=== PATIENT | female | born 1960 | race Caucasian/White ===

== ENCOUNTER 2017-07-02 15:18 | Inpatient (IN) | payer MEDICARE ==
[2017-07-02] MEDS ORDERED: NORMAL SALINE 1000 ML 1,000 ML IV ONE ×3 (16:23→18:47)
[2017-07-02 16:35] LABS: HEMATOCRIT 29.5 % (36.0-47.0); HEMOGLOBIN 8.3 g/dL (12.0-15.5); MEAN CORPUSCULAR HEMOGLOBIN 20.4 pg (27.0-33.4); MEAN CORPUSCULAR HGB CONC 28.1 g/dL (32.0-36.0); MEAN CORPUSCULAR VOLUME 73 fl (80-97); RED BLOOD COUNT 4.07 10^6/uL (3.72-5.28); RED CELL DISTRIBUTION WIDTH 19.7 % (11.5-14.0); WHITE BLOOD COUNT 18.1 10^3/uL (4.0-10.5)
--- NOTE | 2017-07-02 16:37 | ER Document Report ---
ED Blood Sugar Problem - General Mode of Arrival: Wheelchair Information source: Patient, Parent TRAVEL OUTSIDE OF THE [place] IN LAST 30 DAYS: No - HPI Onset: This morning Similar symptoms previously: Yes Recently seen / treated by doctor: No <DEBORAH NORTON - Last Filed: 07/02/17 16:56> <SAÚL KUMAR - Last Filed: 07/02/17 20:00> - General Chief Complaint: High Blood Sugar Stated Complaint: BLOOD SUGAR PROBLEMS Time Seen by Provider: 07/02/17 16:14 Notes: Patient is a 56-year-old female presented emergency department for hyperglycemia , vomiting and abdominal pain. Patient took her blood glucose at 10:00 this morning and her meter read "high." Patient took 12.5 units of her insulin at 10 :00. Patient does wear an insulin pump and has been insulin-dependent since she was 10 years old. Patient states that last night when she went to bed she felt fine and around 3:00 this morning she woke up to use the bathroom and she had some blurry vision, lightheadedness and had difficulty getting to the bathroom. Mother states that the patient called out her to get help this morning. Patient has nausea and vomiting and she also complains of some lower abdominal pain. Patient is on chronic pain management and is taking methadone and Dilaudid for such. Patient is also taking prednisone and Prograf for immunization. Patient had a kidney transplant in 2009 and she also has a history of GERD, hypertension, hyperlipidemia, and anxiety. Patient has had a cholecystectomy, appendectomy, and hysterectomy. Patient usually goes to [facility] to see Dr. Lior Merida, Training Designer. (DEBORAH NORTON) The patient is on chronic pain management with Dilaudid and methadone for chronic abdominal pain. She states they have not been able to figure out why she has the abdominal paiin. After 2 L of IV fluid, 1 dose of Dilaudid and being on insulin drip, she does feel better. At this time (0)there are strong ketones on her breath. Her abdomen is soft, there is some tenderness in the lower abdomen. It is difficult to tell if this pain is worse than what would normally be there and she is a little vague about whether or not it really hurts more than When I palpate her abdomen. (SAÚL KUMAR) - Related Data Allergies/Adverse Reactions: amoxicillin Allergy (Verified 07/02/17 17:16) aspirin Allergy (Verified 07/02/17 15:55) clindamycin Allergy (Verified 07/02/17 17:16) divalproex sodium [From Depakote] Allergy (Verified 07/02/17 17:16) gabapentin [From Neurontin] Allergy (Verified 07/02/17 17:16) ibuprofen Allergy (Verified 07/02/17 17:16) iodine Allergy (Verified 07/02/17 17:16) iron Allergy (Verified 07/02/17 17:16) metoclopramide [From Reglan] Allergy (Verified 07/02/17 17:16) morphine Allergy (Verified 07/02/17 17:16) nalbuphine [From Nubain] Allergy (Verified 07/02/17 17:16) NSAIDS (Non-Steroidal Anti-Inflamma Allergy (Verified 07/02/17 15:55) orange juice Allergy (Verified 07/02/17 17:16) paricalcitol [From Zemplar] Allergy (Verified 07/02/17 17:16) pregabalin [From Lyrica] Allergy (Verified 07/02/17 17:16) Sulfa (Sulfonamide Antibiotics) Allergy (Verified 07/02/17 15:55) topiramate [From Topamax] Allergy (Verified 07/02/17 17:16) IVP dye Allergy (Uncoded 07/02/17 17:16) seafood Allergy (Uncoded 07/02/17 17:16) Home Medications: Current Home Medications Acetaminophen [Tylenol 325 mg Tablet] 325 mg PO Q4HP PRN 07/02/17 [History] Albuterol Sulfate [Proair Respiclick] 90 mcg IH Q4H PRN 07/02/17 [History] Aspirin 81 mg PO DAILY 07/02/17 [History] Cholecalciferol (Vitamin D3) [Vitamin D3] 2,000 unit PO DAILY 07/02/17 [History] Citalopram Hydrobromide [Citalopram HBr] 20 mg PO DAILY 07/02/17 [History] Clonazepam 1 mg PO BID 07/02/17 [History] Clonidine HCl 0.1 mg PO QHS 07/02/17 [History] Cyclobenzaprine HCl 10 mg PO BID 07/02/17 [History] Docusate Sodium [Colace 100 mg Capsule] 100 mg PO DAILY PRN 07/02/17 [History] Duloxetine HCl [Cymbalta] 60 mg PO BID 07/02/17 [History] Ferrous Sulfate 325 mg PO TID 07/02/17 [History] Hydromorphone HCl 2 mg PO QID PRN 07/02/17 [History] Insulin Aspart [Novolog Insulin 100 Unit/1 ml 10 ml] 0 unit SUBCUT .SLD SCALE [History] Levothyroxine Sodium 125 mcg PO QAM 07/02/17 [History] Lidocaine [Lidoderm 5% (700 mg) Transdermal Patch] 1 patch TP DAILY PRN [History] Loperamide HCl [Imodium 2 mg Capsule] 2 mg PO Q6HP PRN 07/02/17 [History] Losartan Potassium [Cozaar 25 mg Tablet] 25 mg PO DAILY 07/02/17 [History] Magnesium Oxide 400 mg PO BID 07/02/17 [History] Methadone HCl 5 mg PO DAILY 07/02/17 [History] Metoprolol Tartrate [Lopressor 25 mg Tablet] 12.5 mg PO QHS 07/02/17 [History] Mycophenolate Sodium [Myfortic 360 Mg Tablet.Dr] 360 mg PO BID 07/02/17 [History ] Pantoprazole Sodium [Protonix] 40 mg PO BID 07/02/17 [History] Polyethylene Glycol 3350 [Glycolax] 17 gm PO DAILY 07/02/17 [History] Prednisone 5 mg PO QAM 07/02/17 [History] Promethazine HCl [Phenergan 25 mg Tablet] 25 mg PO Q6H PRN 07/02/17 [History] Simvastatin 40 mg PO QHS 07/02/17 [History] Tacrolimus Anhydrous [Prograf 1 Mg Capsule] 1 mg PO BID 07/02/17 [History] Past Medical History - General Information source: Patient, Parent - Social History Smoking Status: Never Smoker Cigarette use (# per day): No Chew tobacco use (# tins/day): No Smoking Education Provided: No Frequency of alcohol use: None Drug Abuse: None Family History: None Patient has suicidal ideation: No Patient has homicidal ideation: No - Past Medical History Cardiac Medical History: Reports: Hx Hypercholesterolemia, Hx Hypertension Neurological Medical History: Reports: Hx Cerebrovascular Accident Endocrine Medical History: Reports: Hx Diabetes Mellitus Type 1 Past Surgical History: Reports: Hx Appendectomy, Hx Section, Hx Cholecystectomy, Hx Hysterectomy, Hx Kidney (Renal Surgery) - Kidney transplant , Hx Tubal Ligation <DEBORAH NORTON - Last Filed: 07/02/17 16:56> Physical Exam - Vital signs Interpretation: Hypertensive <DEBORAH NORTON - Last Filed: 07/02/17 16:56> <SAÚL KUMAR - Last Filed: 07/02/17 20:00> - Vital signs Vitals: Temp Pulse Resp BP Pulse Ox 98.4 F 109 H 20 151/68 H 94 07/02/17 15:48 07/02/17 15:48 07/02/17 15:48 07/02/17 15:48 07/02/17 15:48 - Notes Notes: GENERAL: Alert, interacts well. Mild distress. HEAD: Normocephalic, atraumatic. EYES: Appear normal. Pupils equal, round, and reactive to light. ENT: Dry mucus membranes, tongue midline. NECK: Full range of motion. Supple. Trachea midline. LUNGS: Clear to auscultation bilaterally, no wheezes, rales, or rhonchi. No respiratory distress. HEART: Regular rate and rhythm. No murmurs, gallops, or rubs. ABDOMEN: Obese, soft, diffuse tenderness to palpation. Non-distended. Normal bowel sounds. EXTREMITIES: Moves all 4 extremities spontaneously. Normal strength. No edema. NEUROLOGICAL: Alert and oriented x3. Normal speech. No focal neurological deficits. GCS 15. PSYCH: Normal affect, normal mood. SKIN: Warm, dry, normal turgor. No rashes or lesions noted. (DEBORAH NOROTN) Course - Laboratory Result Diagrams: 07/02/17 16:16 07/02/17 16:16 <DEBORAH NORTON - Last Filed: 07/02/17 16:56> - Laboratory Result Diagrams: 07/02/17 16:16 07/02/17 16:16 - EKG Interpretation by Nj EKG shows normal: Sinus rhythm, Weiner, Intervals. abnormal: QRS Complexes - Borderline inferior Q waves, ST-T Waves - Nonspecific inferior repolarization abnormality Rate: Tachycardia - 123 P Waves: LAE When compared to previous EKG there are: No significant change - Compared to an EKG done here in 2010 - Consults Dr. Awan Time consulted: 19:35 Consulted provider: will come to ER - IMCU admission <SAÚL KUMAR - Last Filed: 07/02/17 20:00> - Vital Signs Vital signs: Temp Pulse Resp BP Pulse Ox 98.4 F 109 H 31 H 128/67 H 94 07/02/17 15:48 07/02/17 15:48 07/02/17 16:05 07/02/17 16:24 07/02/17 15:48 - Laboratory Laboratory results interpreted by me: 07/02/17 07/02/17 07/02/17 16:16 16:16 16:16 WBC 18.1 H Hgb 8.3 L Hct 29.5 L MCV 73 L MCH 20.4 L MCHC 28.1 L RDW 19.7 H Seg Neuts % (Manual) 95 H Lymphocytes % (Manual) 1 L Abs Neuts (Manual) 17.2 H Abs Lymphs (Manual) 0.2 L Sodium 131.8 L Potassium 5.5 H Chloride 92 L Carbon Dioxide 18 L Anion Gap 22 H BUN 25 H Est GFR (Non-Af Amer) 57 L Glucose 682 H* POC Glucose Hemoglobin A1c % 9.1 H Direct Bilirubin 0.7 H Urine Glucose (UA) Urine Ketones 07/02/17 07/02/17 07/02/17 17:07 18:07 19:01 WBC Hgb Hct MCV MCH MCHC RDW Seg Neuts % (Manual) Lymphocytes % (Manual) Abs Neuts (Manual) Abs Lymphs (Manual) Sodium Potassium Chloride Carbon Dioxide Anion Gap BUN Est GFR (Non-Af Amer) Glucose POC Glucose 541 H* 455 H* Hemoglobin A1c % Direct Bilirubin Urine Glucose (UA) >=500 H Urine Ketones 20 H Critical Care Note - Critical Care Note Total time excluding time spent on procedures (mins): 35 <SAÚL KUMAR - Last Filed: 07/02/17 20:00> Discharge <DEBORAH NORTON - Last Filed: 07/02/17 16:56> - Discharge Admitting Provider: Hospitalist Unit Admitted: IMCU <SAÚL KUMAR - Last Filed: 07/02/17 20:00> - Discharge Clinical Impression: Chronic bilateral lower abdominal pain, Renal transplant recipient Diabetic ketoacidosis associated with type 1 diabetes mellitus Qualifiers: Diabetes mellitus complication detail: without coma Qualified Code(s): E10.10 - Type 1 diabetes mellitus with ketoacidosis without coma Condition: Stable Disposition: ADMITTED INPATIENT Scribe Attestation: 07/02/17 17:49 I personally performed the services described in the documentation, reviewed and edited the documentation which was dictated to the scribe in my presence, and it accurately records my words and actions. (SAÚL KUMAR) Scribe Documentation - Scribe Written by Matilde:: Matilde Casas, 07/02/2017 1650 acting as scribe for :: Devan <DEBORAH NORTON - Last Filed: 07/02/17 16:56>
[2017-07-02] MEDS ORDERED: INSULIN REG, HUMAN 100 UNIT/ML 3 ML VIAL (PYX) IV ONE (16:46)
[2017-07-02 16:48] LABS: ALANINE AMINOTRANSFERASE 28 U/L (9-52); ALKALINE PHOSPHATASE 105 U/L (38-126); ASPARTATE AMINO TRANSFERASE 18 U/L (14-36); BILIRUBIN,DIRECT 0.7 mg/dL (0.0-0.4); BILIRUBIN,TOTAL 0.8 mg/dL (0.2-1.3); BLOOD UREA NITROGEN 25 mg/dL (7-20); CALCIUM 10.1 mg/dL (8.4-10.2); CHLORIDE 92 mmol/L (98-107); CREATININE RESULT 1.01 mg/dL (0.52-1.25); POTASSIUM 5.5 mmol/L (3.6-5.0); TOTAL PROTEIN 7.1 g/dL (6.3-8.2)
[2017-07-02] MEDS ORDERED: ONDANSETRON HCL INJ/PF 4 MG/2 ML SDV IV ONE (16:48)
[2017-07-02] MEDS ORDERED: HYDROMORPHONE HCL INJ/PF 2 MG/ML AMPULE IV ONE ×2 (16:48→18:48)
[2017-07-02 16:55] LABS: CARBON DIOXIDE 18 mmol/L (22-30); SODIUM 131.8 mmol/L (137-145)
[2017-07-02 16:57] LABS: ANION GAP 22 (5-19)
[2017-07-02 16:58] LABS: GLUCOSE 682 mg/dL (75-110)
[2017-07-02 17:03] LABS: HGB HCT DIFFERENCE -4.6
[2017-07-02 17:04] LABS: BASOPHILS % (MANUAL) 0 % (0-2); EOSINOPHILS % (MANUAL) 0 % (0-6); LYMPHOCYTES % (MANUAL) 1 % (13-45); TOTAL CELLS COUNTED 100
[2017-07-02 17:10] LABS: ANISOCYTOSIS 2+; HYPOCHROMASIA 2+; MICROCYTOSIS 2+; OVALOCYTES SLIGHT; POIKILOCYTOSIS SLIGHT; POLYCHROMASIA SLIGHT; ROULEAUX SLIGHT
[2017-07-02 17:20] LABS: APPEARANCE,URINE CLEAR; BILIRUBIN,URINE NEGATIVE (NEGATIVE); GLUCOSE, URINE >=500 mg/dL (NEGATIVE); KETONES,URINE 20 mg/dL (NEGATIVE); LEUKOCYTE ESTERASE,URINE NEGATIVE (NEGATIVE); NITRITE,URINE NEGATIVE (NEGATIVE); PROTEIN,URINE NEGATIVE (NEGATIVE); URINE SPECIFIC GRAVITY 1.017; UROBILINOGEN,URINE NEGATIVE mg/dL (<2.0)
[2017-07-02 18:51] LABS: ADD ON TESTING BLD IN LAB ACKNOWLEDGE
[2017-07-02 19:14] LABS: MAGNESIUM 1.8 mg/dL (1.6-2.3)
[2017-07-02] MEDS ORDERED: LIDOCAINE 5% (700 MG) TRANSDERMAL ADH..PATCH TP PRN (19:42)
[2017-07-02] MEDS ORDERED: HYDROMORPHONE HCL 2 MG TABLET PO PRN (19:42)
[2017-07-02] MEDS ORDERED: DEXTROSE 50%-WATER 25 GM/50 ML DISP.SYRIN IV PRN ×2 (19:44)
[2017-07-02] MEDS ORDERED: GLUCAGON,HUMAN RECOMB 1 MG INJ IM PRN (19:44)
[2017-07-02] MEDS ORDERED: NORMAL SALINE 100 ML with INSULIN REGULAR, HUMAN 100 UNIT IV PRN ×2 (19:44)
[2017-07-02] MEDS ORDERED: DEXTROSE 40% GEL 15 GM TUBE PO PRN ×2 (19:44)
[2017-07-02] MEDS ORDERED: ALBUTEROL SULFATE HFA (90 MCG/PUFF) 200 PUFF/8.5 GM MDI IH PRN (20:30)
[2017-07-02] MEDS: POTASSI CL 20 MEQ/D5-1/2NS 1L 1,000 ML IV PRN (20:30)
[2017-07-02 20:55] LABS: ANION GAP 15 (5-19); BLOOD UREA NITROGEN 20 mg/dL (7-20); CALCIUM 8.4 mg/dL (8.4-10.2); CARBON DIOXIDE 18 mmol/L (22-30); CHLORIDE 106 mmol/L (98-107); GLUCOSE 289 mg/dL (75-110); SODIUM 138.7 mmol/L (137-145)
[2017-07-02 21:06] LABS: POTASSIUM 4.2 mmol/L (3.6-5.0)
[2017-07-02] MEDS ORDERED: IPRATROPIUM/ALBUTEROL 0.5-2.5 MG/3 ML AMPUL NEB PRN (21:10)
--- NOTE | 2017-07-02 21:14 | EKG REPORT ---
SEVERITY:- ABNORMAL ECG - SINUS TACHYCARDIA ANASTASIA, CONSIDER BIATRIAL ABNORMALITIES BORDERLINE INFERIOR Q WAVES NONSPECIFIC REPOL ABNORMALITY CONSIDER ISCHEMIA, INFERIOR AND LATERAL CHEST LEADS : Confirmed by: Cody Childs 02-Jul-2017 21:14:26
[2017-07-02] MEDS ORDERED: METOPROLOL TARTRATE 25 MG TABLET PO SCH (22:00)
[2017-07-02] MEDS ORDERED: CLONIDINE HCL 0.1 MG TABLET PO SCH (22:00)
[2017-07-02] MEDS: SIMVASTATIN 40 MG TABLET PO SCH (22:32)
[2017-07-02] MEDS: HEPARIN SOD (PORCINE) 5,000 UNIT/ML 1 ML SYRINGE SUBCUT SCH (22:55)
[2017-07-03 00:57] LABS: ANION GAP 11 (5-19); BLOOD UREA NITROGEN 19 mg/dL (7-20); CALCIUM 9.1 mg/dL (8.4-10.2); CARBON DIOXIDE 23 mmol/L (22-30); CHLORIDE 106 mmol/L (98-107); CREATININE RESULT 0.82 mg/dL (0.52-1.25); GLUCOSE 228 mg/dL (75-110); POTASSIUM 4.8 mmol/L (3.6-5.0); SODIUM 140.2 mmol/L (137-145)
[2017-07-03] MEDS: POTASSI CL 20 MEQ/D5-1/2NS 1L 1,000 ML IV PRN (01:34)
[2017-07-03] MEDS ORDERED: NORMAL SALINE 1000 ML 1,000 ML IV ONE (03:25)
[2017-07-03] MEDS: PROMETHAZINE HCL 25 MG TABLET PO PRN (04:33)
[2017-07-03] MEDS: HEPARIN SOD (PORCINE) 5,000 UNIT/ML 1 ML SYRINGE SUBCUT SCH ×3 (05:18→22:52)
[2017-07-03 05:42] LABS: ANION GAP 8 (5-19); BLOOD UREA NITROGEN 17 mg/dL (7-20); CALCIUM 8.9 mg/dL (8.4-10.2); CARBON DIOXIDE 25 mmol/L (22-30); CHLORIDE 107 mmol/L (98-107); CREATININE RESULT 0.77 mg/dL (0.52-1.25); GLUCOSE 115 mg/dL (75-110); POTASSIUM 4.6 mmol/L (3.6-5.0); SODIUM 139.8 mmol/L (137-145)
[2017-07-03] MEDS: METOPROLOL TARTRATE 25 MG TABLET PO SCH (05:46)
--- NOTE | 2017-07-03 06:25 | PDOC H&P ---
History of Present Illness Admission Date/PCP: 07/02/17 19:53 Patient complains of: Hyperglycemia, nausea and vomiting History of Present Illness: KE SMITH is a 56 year old female with a past medical history of insulin- dependent diabetes, status post renal transplant 2009, chronic abdominal pain methadone and Dilaudid dependent, depression and anxiety. She been her usual state of health until approximately 12 hours prior to presentation having abdominal pain, nausea and glucometer reading high prompts her evaluation emergency room where she is found to be in DKA. She denies focal symptoms, chest pain, palpitations dysuria or constipation. She is unaware of any insulin pump dysfunction or dietary indiscretion. Past Medical History Cardiac Medical History: Reports: Hyperlipidema, Hypertension Endocrine Medical History: Reports: Diabetes Mellitus Type 1, Diabetes Mellitus Type 2 Psychiatric Medical History: Reports: Depression, General Anxiety Disorder Hematology: Reports: Anemia Past Surgical History Past Surgical History: Reports: Appendectomy, Section, Cholecystectomy , Hysterectomy, Renal Transplant, Tubal Ligation Social History Information Source: Patient Smoking Status: Never Smoker - Advance Directive Resuscitation Status: Full Code Family History Family History: Hypertension Parental Family History Reviewed: Yes Children Family History Reviewed: Yes Sibling(s) Family History Reviewed.: Yes Medication/Allergy Home Medications: Acetaminophen [Tylenol 325 mg Tablet] 325 mg PO Q4HP PRN 07/02/17 Albuterol Sulfate [Proair Respiclick] 90 mcg IH Q4H PRN 07/02/17 Aspirin 81 mg PO DAILY 07/02/17 Cholecalciferol (Vitamin D3) [Vitamin D3] 2,000 unit PO DAILY 07/02/17 Citalopram Hydrobromide [Citalopram HBr] 20 mg PO DAILY 07/02/17 Clonazepam 1 mg PO BID 07/02/17 Clonidine HCl 0.1 mg PO QHS 07/02/17 Cyclobenzaprine HCl 10 mg PO BID 07/02/17 Docusate Sodium [Colace 100 mg Capsule] 100 mg PO DAILY PRN 07/02/17 Duloxetine HCl [Cymbalta] 60 mg PO BID 07/02/17 Ferrous Sulfate 325 mg PO TID 07/02/17 Hydromorphone HCl 2 mg PO QID PRN 07/02/17 Insulin Aspart [Novolog Insulin 100 Unit/1 ml 10 ml] 0 unit SUBCUT .SLD SCALE Levothyroxine Sodium 125 mcg PO QAM 07/02/17 Lidocaine [Lidoderm 5% (700 mg) Transdermal Patch] 1 patch TP DAILY PRN Loperamide HCl [Imodium 2 mg Capsule] 2 mg PO Q6HP PRN 07/02/17 Losartan Potassium [Cozaar 25 mg Tablet] 25 mg PO DAILY 07/02/17 Magnesium Oxide 400 mg PO BID 07/02/17 Methadone HCl 5 mg PO DAILY 07/02/17 Metoprolol Tartrate [Lopressor 25 mg Tablet] 12.5 mg PO QHS 07/02/17 Mycophenolate Sodium [Myfortic 360 Mg Tablet.Dr] 360 mg PO BID 07/02/17 Pantoprazole Sodium [Protonix] 40 mg PO BID 07/02/17 Polyethylene Glycol 3350 [Glycolax] 17 gm PO DAILY 07/02/17 Prednisone 5 mg PO QAM 07/02/17 Promethazine HCl [Phenergan 25 mg Tablet] 25 mg PO Q6H PRN 07/02/17 Simvastatin 40 mg PO QHS 07/02/17 Tacrolimus Anhydrous [Prograf 1 Mg Capsule] 1 mg PO BID 07/02/17 Allergies/Adverse Reactions: amoxicillin Allergy (Verified 07/02/17 17:16) aspirin Allergy (Verified 07/02/17 15:55) clindamycin Allergy (Verified 07/02/17 17:16) divalproex sodium [From Depakote] Allergy (Verified 07/02/17 17:16) gabapentin [From Neurontin] Allergy (Verified 07/02/17 17:16) ibuprofen Allergy (Verified 07/02/17 17:16) iodine Allergy (Verified 07/02/17 17:16) iron Allergy (Verified 07/02/17 17:16) metoclopramide [From Reglan] Allergy (Verified 07/02/17 17:16) morphine Allergy (Verified 07/02/17 17:16) nalbuphine [From Nubain] Allergy (Verified 07/02/17 17:16) NSAIDS (Non-Steroidal Anti-Inflamma Allergy (Verified 07/02/17 15:55) orange juice Allergy (Verified 07/02/17 17:16) paricalcitol [From Zemplar] Allergy (Verified 07/02/17 17:16) pregabalin [From Lyrica] Allergy (Verified 07/02/17 17:16) Sulfa (Sulfonamide Antibiotics) Allergy (Verified 07/02/17 15:55) topiramate [From Topamax] Allergy (Verified 07/02/17 17:16) IVP dye Allergy (Uncoded 07/02/17 17:16) seafood Allergy (Uncoded 07/02/17 17:16) Review of Systems Constitutional: PRESENT: as per HPI, fatigue, weakness Eyes: ABSENT: visual disturbances Ears: ABSENT: hearing changes Cardiovascular: ABSENT: chest pain, dyspnea on exertion, edema, orthropnea, palpitations Respiratory: ABSENT: cough, hemoptysis Gastrointestinal: ABSENT: abdominal pain, constipation, diarrhea, hematemesis, hematochezia, nausea, vomiting Genitourinary: ABSENT: dysuria, hematuria Musculoskeletal: ABSENT: joint swelling Integumentary: ABSENT: rash, wounds Neurological: ABSENT: abnormal gait, abnormal speech, confusion, dizziness, focal weakness, syncope Psychiatric: ABSENT: anxiety, depression, homidical ideation, suicidal ideation Endocrine: ABSENT: cold intolerance, heat intolerance, polydipsia, polyuria Hematologic/Lymphatic: ABSENT: easy bleeding, easy bruising Physical Exam Vital Signs: Temp Pulse Resp BP Pulse Ox 98.3 F 110 H 20 123/66 99 07/03/17 03:15 07/03/17 03:15 07/03/17 03:15 07/03/17 03:15 07/03/17 03:15 Intake & Output 07/01/17 07/02/17 07/03/17 11:59 11:59 11:59 Output Total 0 Balance 0 Weight 77.2 kg General appearance: PRESENT: cooperative, disheveled, mild distress, obese Head exam: PRESENT: atraumatic, normocephalic Eye exam: PRESENT: conjunctiva pink, EOMI, PERRLA. ABSENT: scleral icterus Ear exam: PRESENT: normal external ear exam Mouth exam: PRESENT: dry mucosa, tongue midline Neck exam: ABSENT: carotid bruit, JVD, lymphadenopathy, thyromegaly Respiratory exam: PRESENT: accessory muscle use, symmetrical, tachypnea. ABSENT : crackles, rales, retraction Cardiovascular exam: PRESENT: RRR, tachycardia. ABSENT: diastolic murmur, rubs , systolic murmur Pulses: PRESENT: normal dorsalis pedis pul Vascular exam: PRESENT: normal capillary refill GI/Abdominal exam: PRESENT: diminished bowel sounds, hypoactive bowel sounds, soft, tenderness. ABSENT: distended, firm, guarding, mass, organolmegaly, rebound, rigid Rectal exam: PRESENT: deferred Extremities exam: PRESENT: full ROM. ABSENT: calf tenderness, clubbing, pedal edema Neurological exam: PRESENT: alert, awake, oriented to person, oriented to place , oriented to time, oriented to situation, CN II-XII grossly intact. ABSENT: motor sensory deficit Psychiatric exam: PRESENT: appropriate affect, normal mood. ABSENT: homicidal ideation, suicidal ideation Skin exam: PRESENT: dry, intact, warm. ABSENT: cyanosis, rash Results Laboratory Results: 07/03/17 04:50 07/03/17 04:50 07/02/17 07/03/17 07/03/17 20:05 00:25 04:50 WBC RBC Hgb Hct MCV MCH MCHC RDW Plt Count Seg Neutrophils % Lymphocytes % Monocytes % Eosinophils % Basophils % Absolute Neutrophils Absolute Lymphocytes Absolute Monocytes Absolute Eosinophils Absolute Basophils Sodium 138.7 140.2 139.8 Potassium 4.2 D 4.8 4.6 Chloride 106 106 107 Carbon Dioxide 18 L 23 25 Anion Gap 15 11 8 BUN 20 19 17 Creatinine 0.80 0.82 0.77 Est GFR ( Amer) > 60 > 60 > 60 Est GFR (Non-Af Amer) > 60 > 60 > 60 Glucose 289 H 228 H 115 H Calcium 8.4 9.1 8.9 07/03/17 04:50 WBC Cancelled RBC Cancelled Hgb Cancelled Hct Cancelled MCV Cancelled MCH Cancelled MCHC Cancelled RDW Cancelled Plt Count Cancelled Seg Neutrophils % Cancelled Lymphocytes % Cancelled Monocytes % Cancelled Eosinophils % Cancelled Basophils % Cancelled Absolute Neutrophils Cancelled Absolute Lymphocytes Cancelled Absolute Monocytes Cancelled Absolute Eosinophils Cancelled Absolute Basophils Cancelled Sodium Potassium Chloride Carbon Dioxide Anion Gap BUN Creatinine Est GFR ( Amer) Est GFR (Non-Af Amer) Glucose Calcium Assessment & Plan - Diagnosis (1) Diabetic ketoacidosis associated with type 1 diabetes mellitus Qualifiers: Diabetes mellitus complication detail: without coma Qualified Code(s): E10.10 - Type 1 diabetes mellitus with ketoacidosis without coma Is this a current diagnosis for this admission?: Yes Plan: Diabetic ketoacidosis patient has had some degree of polyuria polydipsia with nausea and uncontrolled hyperglycemia with supporting labs. Patient will receive IV fluids IV insulin serial chemistries every 6 hours for evaluation for electrolyte repletion. Continued evaluation for underlying cause if not found Patient will require diabetic education and consideration of mental health evaluation. (2) Hyperkalemia Is this a current diagnosis for this admission?: Yes Plan: Secondary to DKA, reevaluate chemistry every 6 hours (3) Chronic bilateral lower abdominal pain Is this a current diagnosis for this admission?: Yes Plan: Consider abdominal series given high risk fecal impaction given narcotic use. (4) Renal transplant recipient Is this a current diagnosis for this admission?: Yes Plan: Continue outpatient regiment (5) Anemia Is this a current diagnosis for this admission?: Yes Plan: Likely secondary to epogen deficiency, follow-up anemia workup and CBC - Time Time Spent: 50 to 70 Minutes - Inpatient Certification Medical Necessity: Need Close Monitoring Due to Risk of Patient Decompensation
[2017-07-03 06:31] LABS: HEMATOCRIT 24.3 % (36.0-47.0); HGB HCT DIFFERENCE -2.4; MEAN CORPUSCULAR HEMOGLOBIN 20.4 pg (27.0-33.4); RED BLOOD COUNT 3.57 10^6/uL (3.72-5.28); RED CELL DISTRIBUTION WIDTH 20.2 % (11.5-14.0); WHITE BLOOD COUNT 21.1 10^3/uL (4.0-10.5)
[2017-07-03 07:01] LABS: MEAN CORPUSCULAR VOLUME 68 fl (80-97)
[2017-07-03 07:02] LABS: HEMOGLOBIN 7.3 g/dL (12.0-15.5)
[2017-07-03 07:06] LABS: BAND NEUTROPHILS % (MANUAL) 1 % (3-5); BASOPHILS % (MANUAL) 0 % (0-2); EOSINOPHILS % (MANUAL) 0 % (0-6); LYMPHOCYTES % (MANUAL) 4 % (13-45); TOTAL CELLS COUNTED 100
[2017-07-03 07:09] LABS: TOXIC GRANULATION SLIGHT
[2017-07-03 07:10] LABS: ANISOCYTOSIS 2+; HYPOCHROMASIA 1+; MICROCYTOSIS 2+; OVALOCYTES SLIGHT; PLATELET CLUMPS PRESENT; POIKILOCYTOSIS SLIGHT; POLYCHROMASIA SLIGHT; TARGET CELLS SLIGHT; TEAR DROP CELLS SLIGHT; TOXIC VACUOLATION PRESENT
[2017-07-03 07:19] LABS: FERRITIN 7.11 ng/mL (11.1-264.0)
[2017-07-03] MEDS: PREDNISONE 5 MG TABLET PO SCH (07:46)
[2017-07-03 07:51] LABS: FOLATE > 20.00 ng/mL (>2.76)
--- NOTE | 2017-07-03 08:00 | RADIOLOGY REPORT (SQ) ---
EXAM DESCRIPTION: ABDOMEN 2 VIEWS COMPLETED DATE/TIME: 07/03/2017 7:46 am REASON FOR STUDY: Pain. Mid abdominal pain . Nausea, vomiting, diarrhea. COMPARISON: Abdominal series 05/31/2016. NUMBER OF VIEWS: Two views. TECHNIQUE: Supine and erect/decubitus radiographic images of the abdomen acquired. LIMITATIONS: None. FINDINGS: FREE AIR: None. LUNG BASES: Clear. BOWEL GAS PATTERN: Small amount of gas in the stomach and ascending colon. Otherwise, there is pauci ty of bowel gas. CALCIFICATIONS: No suspicious calcifications. SOFT TISSUES: No gross mass or suggestion of organomegaly. HARDWARE: Surgical clips in the right upper quadrant and right lower quadrant. BONES: There is thoracolumbar scoliosis. IMPRESSION: Small amount of gas in the stomach and the ascending colon. Otherwise, there is paucity of bowel gas. TECHNICAL DOCUMENTATION: JOB ID: [id number] [employer]- All Rights Reserved
[2017-07-03] MEDS: HYDROMORPHONE HCL 2 MG TABLET PO PRN ×2 (08:47→22:53)
[2017-07-03 08:51] LABS: ANION GAP 14 (5-19); BLOOD UREA NITROGEN 15 mg/dL (7-20); CARBON DIOXIDE 18 mmol/L (22-30); CHLORIDE 105 mmol/L (98-107); CREATININE RESULT 0.79 mg/dL (0.52-1.25); GLUCOSE 316 mg/dL (75-110); POTASSIUM 5.3 mmol/L (3.6-5.0); SODIUM 136.8 mmol/L (137-145)
[2017-07-03] MEDS: METHADONE HCL 10 MG TABLET PO SCH (09:22)
[2017-07-03] MEDS: CLONAZEPAM 1 MG TABLET PO SCH ×2 (09:23→17:37)
[2017-07-03] MEDS: CITALOPRAM HYDROBROMIDE 20 MG TABLET PO SCH (09:24)
[2017-07-03] MEDS: MAGNESIUM OXIDE 400 MG TABLET PO SCH ×2 (09:25→17:37)
[2017-07-03] MEDS: CHOLECALCIFEROL (D3) 1,000 UNIT TABLET PO SCH (09:26)
[2017-07-03] MEDS: DOCUSATE SODIUM 100 MG CAPSULE PO PRN (09:38)
[2017-07-03] MEDS ORDERED: LANSOPRAZOLE 30 MG TAB.RAP.DR PO SCH (10:00)
[2017-07-03] MEDS ORDERED: POLYETHYLENE GLYCOL 3350 POWDER 17 GM/1 PACKET PO SCH (10:00)
[2017-07-03] MEDS ORDERED: ASPIRIN 81 MG TABLET, CHEWABLE PO SCH (10:00)
[2017-07-03] MEDS ORDERED: LOSARTAN POTASSIUM 25 MG TABLET PO SCH (10:00)
[2017-07-03] MEDS ORDERED: (PENDING PHARMACY ID) (Mycophenolate Sodium 360 MG) PO SCH (10:00)
--- NOTE | 2017-07-03 10:13 | Physician Advisory Note ---
Physician Advisor ProgressNote .: Pursuant to the plan for [facility], I have reviewed the medical record for this patient. Physician Advisor Statement: Please consider documentin. "SIRS due to DKA, present on adm" 2. "anemia of CKD & nutritional [vs chr blood loss from ___] Fe defic" Status: approp Inpt. 56yo Medicare pt already in hospital x 1 night for DKA of unclear etiology needing w/u, w/associated SIRS & electrolyte abnormalities & distress, with, after 1 night of hospital level intensive tx, still worse leukocytosis, persistent tachycardia, recurrent acidosis & hyperkalemia. Clearly not able to be safely d/c'd after 1 MN. CK
[2017-07-03] MEDS: TACROLIMUS ANHYDROUS 1 MG CAPSULE PO SCH ×2 (10:33→17:38)
[2017-07-03] MEDS ORDERED: INSULIN LISPRO 100 UNIT/ML 3 ML VIAL ONE (12:18)
[2017-07-03] MEDS ORDERED: DEXTROSE 50%-WATER SYRINGE 25 GM/50 ML DOSE IV PRN (12:25)
[2017-07-03] MEDS ORDERED: DEXTROSE 50%-WATER SYRINGE 12.5 GM/25 ML DOSE IV PRN (12:25)
[2017-07-03] MEDS ORDERED: DEXTROSE 40% GEL 15 GM TUBE PO PRN ×4 (12:25→22:07)
[2017-07-03] MEDS ORDERED: DEXTROSE 40% GEL 15 GM TUBE X 2 PO PRN (12:25)
[2017-07-03] MEDS ORDERED: GLUCAGON,HUMAN RECOMB 1 MG INJ IM PRN ×3 (12:25→22:07)
[2017-07-03] MEDS ORDERED: INSULIN LISPRO 100 UNIT/ML 3 ML VIAL SUBCUT PRN (12:25)
[2017-07-03 12:47] LABS: ANION GAP 17 (5-19); BLOOD UREA NITROGEN 15 mg/dL (7-20); CALCIUM 9.3 mg/dL (8.4-10.2); CARBON DIOXIDE 16 mmol/L (22-30); CHLORIDE 103 mmol/L (98-107); CREATININE RESULT 0.86 mg/dL (0.52-1.25); POTASSIUM 5.8 mmol/L (3.6-5.0); SODIUM 136.3 mmol/L (137-145)
[2017-07-03 13:00] LABS: GLUCOSE 489 mg/dL (75-110)
[2017-07-03] MEDS ORDERED: IPRATROPIUM/ALBUTEROL 0.5-2.5 MG/3 ML AMPUL NEB PRN (13:00)
[2017-07-03] MEDS ORDERED: INSULIN LISPRO 100 UNIT/ML 3 ML VIAL SUBCUT ONE (13:30)
[2017-07-03] MEDS ORDERED: NORMAL SALINE 250 ML IV PRN (14:02)
[2017-07-03 15:17] LABS: ANION GAP 17 (5-19); BLOOD UREA NITROGEN 15 mg/dL (7-20); CALCIUM 9.3 mg/dL (8.4-10.2); CARBON DIOXIDE 15 mmol/L (22-30); CHLORIDE 105 mmol/L (98-107); CREATININE RESULT 0.87 mg/dL (0.52-1.25); GLUCOSE 321 mg/dL (75-110); SODIUM 136.7 mmol/L (137-145)
[2017-07-03] MEDS ORDERED: BISACODYL 10 MG SUPP.RECT PR PRN (15:20)
[2017-07-03 15:27] LABS: POTASSIUM 4.8 mmol/L (3.6-5.0)
--- NOTE | 2017-07-03 15:41 | PDOC PROGRESS REPORT ---
Subjective Progress Note for:: 07/03/17 Subjective:: The patient is a 56-year-old female with insulin-dependent diabetes. She presented to the hospital in DKA. She was admitted this morning. Initially, the insulin drip was discontinued as the patient closed her gap, however, she now has a persistent anion gap with hyperglycemia and she will be placed back on insulin drip per DKA protocol. The patient is severely anemic. Her anemia appears to be secondary to iron deficiency. GI has been consulted. The etiology of the patient's DKA is unknown. Cultures are outstanding. The patient does not give any history relating to infection but we need to be vigilant. The patient has an insulin pump at home and relates no noncompliance. 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 Physical Exam Vital Signs: Temp Pulse Resp BP Pulse Ox 100.1 F 105 H 18 118/74 98 07/03/17 11:53 07/03/17 14:00 07/03/17 11:53 07/03/17 11:53 07/03/17 11:53 Intake & Output 07/02/17 07/03/17 07/04/17 06:59 06:59 06:59 Intake Total 2324 Output Total 0 Balance 2324 Weight 77.2 kg Additional comments: The patient appears older than her stated age. She does not appear to be in good health but she appears nontoxic and in no distress. Her cognition and mentation appear to be normal, however, the nurses have reported that intermittently she appears confused. The patient's facial appearance shows a mcclellan facies. She appears to be cushingoid. She has a slight humpback. The patient's oropharynx is benign with fair dentition. Neck is supple. Lungs are clear bilaterally both anteriorly and posteriorly. Cardiac exam is regular without murmurs, gallops or rubs. The abdomen is diffusely tender but soft. Bowel sounds are noted in all 4 quadrants. There is no guarding or rebound noted and there is no hepatosplenomegaly. The lower extremities are thin and warm. There is no pitting edema present. The skin is warm dry and intact without lesions or rashes. Results Laboratory Results: 07/03/17 06:14 07/03/17 14:20 07/02/17 07/03/17 07/03/17 20:05 00:25 04:50 WBC RBC Hgb Hct MCV MCH MCHC RDW Plt Count Seg Neutrophils % Lymphocytes % Monocytes % Eosinophils % Basophils % Absolute Neutrophils Absolute Lymphocytes Absolute Monocytes Absolute Eosinophils Absolute Basophils Retic Count (auto) Absolute Retic Sodium 138.7 140.2 139.8 Potassium 4.2 D 4.8 4.6 Chloride 106 106 107 Carbon Dioxide 18 L 23 25 Anion Gap 15 11 8 BUN 20 19 17 Creatinine 0.80 0.82 0.77 Est GFR ( Amer) > 60 > 60 > 60 Est GFR (Non-Af Amer) > 60 > 60 > 60 Glucose 289 H 228 H 115 H Calcium 8.4 9.1 8.9 Iron TIBC % Saturation Ferritin Vitamin B12 Folate Stool Occult Blood Blood Type Antibody Screen 07/03/17 07/03/17 07/03/17 04:50 06:14 06:14 WBC Cancelled 21.1 H RBC Cancelled 3.57 L Hgb Cancelled 7.3 L Hct Cancelled 24.3 L MCV Cancelled 68 L D MCH Cancelled 20.4 L MCHC Cancelled 30.0 L RDW Cancelled 20.2 H Plt Count Cancelled 248 Seg Neutrophils % Cancelled Not Reportable Lymphocytes % Cancelled Not Reportable Monocytes % Cancelled Not Reportable Eosinophils % Cancelled Not Reportable Basophils % Cancelled Not Reportable Absolute Neutrophils Cancelled Not Reportable Absolute Lymphocytes Cancelled Not Reportable Absolute Monocytes Cancelled Not Reportable Absolute Eosinophils Cancelled Not Reportable Absolute Basophils Cancelled Not Reportable Retic Count (auto) 1.92 Absolute Retic 0.069 Sodium Potassium Chloride Carbon Dioxide Anion Gap BUN Creatinine Est GFR ( Amer) Est GFR (Non-Af Amer) Glucose Calcium Iron Cancelled TIBC Cancelled % Saturation Cancelled Ferritin 7.11 L Vitamin B12 772.0 Folate > 20.00 Stool Occult Blood Blood Type Antibody Screen 07/03/17 07/03/17 07/03/17 08:26 08:26 08:35 WBC RBC Hgb Hct MCV MCH MCHC RDW Plt Count Seg Neutrophils % Lymphocytes % Monocytes % Eosinophils % Basophils % Absolute Neutrophils Absolute Lymphocytes Absolute Monocytes Absolute Eosinophils Absolute Basophils Retic Count (auto) Absolute Retic Sodium 136.8 L Potassium 5.3 H Chloride 105 Carbon Dioxide 18 L Anion Gap 14 BUN 15 Creatinine 0.79 Est GFR ( Amer) > 60 Est GFR (Non-Af Amer) > 60 Glucose 316 H Calcium 9.0 Iron 18.1 L TIBC 344 % Saturation 5 Ferritin Vitamin B12 Folate Stool Occult Blood NEGATIVE Blood Type Antibody Screen 07/03/17 07/03/17 07/03/17 12:18 14:20 14:20 WBC RBC Hgb Hct MCV MCH MCHC RDW Plt Count Seg Neutrophils % Lymphocytes % Monocytes % Eosinophils % Basophils % Absolute Neutrophils Absolute Lymphocytes Absolute Monocytes Absolute Eosinophils Absolute Basophils Retic Count (auto) Absolute Retic Sodium 136.3 L 136.7 L Potassium 5.8 H 4.8 D Chloride 103 105 Carbon Dioxide 16 L 15 L Anion Gap 17 17 BUN 15 15 Creatinine 0.86 0.87 Est GFR ( Amer) > 60 > 60 Est GFR (Non-Af Amer) > 60 > 60 Glucose 489 H* 321 H Calcium 9.3 9.3 Iron TIBC % Saturation Ferritin Vitamin B12 Folate Stool Occult Blood Blood Type A POSITIVE Antibody Screen NEGATIVE Impressions: Abdomen X-Ray 07/03/17 06:25 IMPRESSION: Small amount of gas in the stomach and the ascending colon. Otherwise, there is paucity of bowel gas. Assessment & Plan - Diagnosis (1) sirs due to dka, present on admission Is this a current diagnosis for this admission?: Yes Plan: The patient has gone back into DKA. She will be placed on IV insulin via drip. We can discontinue this once her anion gap closes again. We will continue to look for the source of the DKA. I will order a chest x-ray. Urine culture was also added to blood cultures. Physical exam is nonlocalizing. I have not empirically started antibiotics. (2) Anemia Is this a current diagnosis for this admission?: Yes Plan: Patient has severe anemia. This is likely acute on chronic. She does have at least a component of iron deficiency anemia. She will need workup from GI. GI has been consulted. Patient told me that she recently had upper endoscopy and that it was not "" normal but no intervention was necessary. I asked her she had a colonoscopy but she was unaware of having had a prior colonoscopy. Rectal exam showed minimal stool which appeared to be brown. Patient will be transfused 2 units packed red blood cells today for hemoglobin of 7. (3) Chronic bilateral lower abdominal pain Is this a current diagnosis for this admission?: Yes Plan: I suspect that this is due to chronic constipation from narcotics. I informed the patient that we should put her on a regimen to wean her off narcotics. She seemed to be receptive. (4) Diabetic ketoacidosis associated with type 1 diabetes mellitus Qualifiers: Diabetes mellitus complication detail: without coma Qualified Code(s): E10.10 - Type 1 diabetes mellitus with ketoacidosis without coma Is this a current diagnosis for this admission?: Yes Plan: The patient will be placed back on IV insulin by drip. (5) Hyperkalemia Is this a current diagnosis for this admission?: Yes Plan: For the time being I will hold the patient's angiotensin receptor blockers. The hyperkalemia is likely related to the DKA and should improve once the acidosis improves. (6) Renal transplant recipient Is this a current diagnosis for this admission?: Yes Plan: At the present time the patient does not appear to have any acute renal injury. We will continue her medications for the renal transplant. 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 - Time Time Spent with patient: 25-34 minutes - This is additional to H&P done earlier today. - Inpatient Certification Medical Necessity: Need Close Monitoring Due to Risk of Patient Decompensation, Need For IV Fluids, Risk of Complication if Not Cared For in Hospital - The patient is obviously not stable for discharge from the hospital. She has a persistent metabolic acidosis from DKA. She has severe anemia with hemoglobin of 7. She has multiple electrolyte abnormalities to include hypokalemia.
[2017-07-03] MEDS ORDERED: DEXTROSE 50%-WATER 25 GM/50 ML DISP.SYRIN IV PRN ×4 (15:48→22:07)
[2017-07-03] MEDS ORDERED: NORMAL SALINE 100 ML with INSULIN REGULAR, HUMAN 100 UNIT IV PRN ×2 (15:48)
[2017-07-03] MEDS ORDERED: NORMAL SALINE 1000 ML 1,000 ML IV PRN (15:56)
[2017-07-03] MEDS ORDERED: DEXTROSE 5%-1/2 NORMAL SALINE 1,000 ML IV PRN (16:55)
[2017-07-03] MEDS: LANSOPRAZOLE 30 MG TAB.RAP.DR PO SCH (16:57)
[2017-07-03] MEDS ORDERED: INFLUENZA ADLT QUAD (36MOS+) 2017-18 VAC 0.5 ML SYR IM PRN (17:28)
[2017-07-03 19:49] LABS: ANION GAP 9 (5-19); BLOOD UREA NITROGEN 13 mg/dL (7-20); CARBON DIOXIDE 23 mmol/L (22-30); CHLORIDE 104 mmol/L (98-107); CREATININE RESULT 0.85 mg/dL (0.52-1.25); GLUCOSE 169 mg/dL (75-110); POTASSIUM 4.8 mmol/L (3.6-5.0); SODIUM 136.2 mmol/L (137-145)
[2017-07-03] MEDS: ACETAMINOPHEN 325 MG TABLET PO PRN (21:19)
[2017-07-03] MEDS ORDERED: HUM INSULIN NPH/REG INSULIN HM 100 UNIT/1 ML 3 ML SUBCUT SCH (22:15)
[2017-07-03] MEDS: CLONIDINE HCL 0.1 MG TABLET PO SCH (22:54)
[2017-07-03] MEDS: SIMVASTATIN 40 MG TABLET PO SCH (22:55)
[2017-07-03] MEDS ORDERED: HUM INSULIN NPH/REG INSULIN HM 100 UNIT/1 ML 3 ML SUBCUT ONE (23:10)
[2017-07-03 23:20] LABS: ANION GAP 11 (5-19); BLOOD UREA NITROGEN 13 mg/dL (7-20); CALCIUM 9.3 mg/dL (8.4-10.2); CARBON DIOXIDE 18 mmol/L (22-30); CHLORIDE 104 mmol/L (98-107); CREATININE RESULT 0.82 mg/dL (0.52-1.25); GLUCOSE 260 mg/dL (75-110); POTASSIUM 4.9 mmol/L (3.6-5.0); SODIUM 133.4 mmol/L (137-145)
[2017-07-04] MEDS: INSULIN LISPRO 100 UNIT/ML 3 ML VIAL SUBCUT PRN ×3 (01:02→16:13)
[2017-07-04] MEDS: PROMETHAZINE HCL 25 MG TABLET PO PRN (01:26)
[2017-07-04 01:35] LABS: ABSOLUTE BASOPHILS # (AUTO) 0.1 10^3/uL (0.0-0.2); ABSOLUTE LYMPHOCYTES (AUTO) 1.3 10^3/uL (0.5-4.7); ABSOLUTE MONOCYTES (AUTO) 1.3 10^3/uL (0.1-1.4); BASOPHILS % (AUTO) 0.4 % (0-2); HEMATOCRIT 33.8 % (36.0-47.0); HGB HCT DIFFERENCE -1.7; LYMPHOCYTES % (AUTO) 7.2 % (13-45); MEAN CORPUSCULAR HEMOGLOBIN 23.3 pg (27.0-33.4); MEAN CORPUSCULAR HGB CONC 31.7 g/dL (32.0-36.0); MONOCYTES % (AUTO) 7.6 % (3-13); RED CELL DISTRIBUTION WIDTH 24.3 % (11.5-14.0); SEGMENTED NEUTROPHILS % (AUTO) 84.8 % (42-78); WHITE BLOOD COUNT 17.6 10^3/uL (4.0-10.5)
[2017-07-04 01:36] LABS: HEMOGLOBIN 10.7 g/dL (12.0-15.5)
[2017-07-04 01:37] LABS: MEAN CORPUSCULAR VOLUME 74 fl (80-97)
[2017-07-04 01:43] LABS: ANION GAP 14 (5-19); BLOOD UREA NITROGEN 14 mg/dL (7-20); CALCIUM 9.1 mg/dL (8.4-10.2); CARBON DIOXIDE 17 mmol/L (22-30); CHLORIDE 106 mmol/L (98-107); CREATININE RESULT 0.87 mg/dL (0.52-1.25); GLUCOSE 275 mg/dL (75-110); POTASSIUM 4.7 mmol/L (3.6-5.0); SODIUM 137.1 mmol/L (137-145)
[2017-07-04 01:44] LABS: ANISOCYTOSIS 3+; BURR CELLS SLIGHT; HYPOCHROMASIA 1+; MICROCYTOSIS 1+; OVALOCYTES 1+; PLATELET CLUMPS PRESENT; POIKILOCYTOSIS 1+; POLYCHROMASIA SLIGHT; TARGET CELLS SLIGHT; TEAR DROP CELLS SLIGHT
[2017-07-04] MEDS: HEPARIN SOD (PORCINE) 5,000 UNIT/ML 1 ML SYRINGE SUBCUT SCH ×3 (05:52→21:10)
[2017-07-04] MEDS: LANSOPRAZOLE 30 MG TAB.RAP.DR PO SCH (07:33)
[2017-07-04] MEDS: PREDNISONE 5 MG TABLET PO SCH (07:33)
--- NOTE | 2017-07-04 08:41 | RADIOLOGY REPORT (SQ) ---
EXAM DESCRIPTION: CHEST SINGLE VIEW COMPLETED DATE/TIME: 07/04/2017 6:53 am REASON FOR STUDY: infection COMPARISON: 05/31/2016, 03/06/2011 chest films EXAM PARAMETERS: NUMBER OF VIEWS: One view. TECHNIQUE: Single frontal radiographic view of the chest acquired. RADIATION DOSE: NA LIMITATIONS: None. FINDINGS: LUNGS AND PLEURA: Right basilar airspace disease is present with air bronchograms and blun ting of the right lateral costophrenic sulcus. Question early or developing pneumonia. Left lung grossly clear. No pleural effusions. MEDIASTINUM AND HILAR STRUCTURES: No masses. Contour normal. HEART AND VASCULAR STRUCTURES: Heart normal in size. Normal vasculature. BONES: Convex rightward mid and lower thoracic curvature HARDWARE: None in the chest. OTHER: No other significant finding. IMPRESSION: Patchy airspace disease in the right lower lobe, atelectasis versus pneumonia TECHNICAL DOCUMENTATION: JOB ID: [id number]
[2017-07-04] MEDS: MAGNESIUM OXIDE 400 MG TABLET PO SCH ×2 (09:39→20:28)
[2017-07-04] MEDS: CLONAZEPAM 1 MG TABLET PO SCH ×2 (09:40→20:36)
[2017-07-04] MEDS: CITALOPRAM HYDROBROMIDE 20 MG TABLET PO SCH (09:40)
[2017-07-04] MEDS: CHOLECALCIFEROL (D3) 1,000 UNIT TABLET PO SCH (09:40)
[2017-07-04] MEDS: ASPIRIN 81 MG TABLET, CHEWABLE PO SCH (09:40)
[2017-07-04] MEDS: POLYETHYLENE GLYCOL 3350 POWDER 17 GM/1 PACKET PO SCH ×2 (09:41→20:29)
[2017-07-04] MEDS: METHADONE HCL 10 MG TABLET PO SCH (09:45)
[2017-07-04] MEDS: DOCUSATE SODIUM 100 MG CAPSULE PO PRN (09:48)
[2017-07-04] MEDS: TACROLIMUS ANHYDROUS 1 MG CAPSULE PO SCH ×2 (09:48→20:29)
[2017-07-04] MEDS ORDERED: LOSARTAN POTASSIUM 25 MG TABLET PO SCH (10:00)
[2017-07-04 10:12] LABS: APPEARANCE,URINE CLEAR; BILIRUBIN,URINE NEGATIVE (NEGATIVE); GLUCOSE, URINE 150 mg/dL (NEGATIVE); KETONES,URINE 20 mg/dL (NEGATIVE); LEUKOCYTE ESTERASE,URINE TRACE (NEGATIVE); NITRITE,URINE NEGATIVE (NEGATIVE); PROTEIN,URINE 30 mg/dL (NEGATIVE); URINE SPECIFIC GRAVITY 1.016; UROBILINOGEN,URINE NEGATIVE mg/dL (<2.0)
--- NOTE | 2017-07-04 10:19 | PDOC PROGRESS REPORT ---
Subjective Progress Note for:: 07/04/17 Subjective:: Patient states that she is feeling better today. Nurse reports the patient is scheduled for EGD. Patient reports that her stool has been hard for the last several days. Nursing reports that patient is constipated. Nursing also reports that patient has had vomiting episodes during this admission. Nursing also reports that patient has coarse breath sounds heard on right side. Physical Exam Vital Signs: Temp Pulse Resp BP Pulse Ox 98.8 F 113 H 18 146/71 H 96 07/04/17 07:30 07/04/17 07:30 07/04/17 07:30 07/04/17 07:30 07/04/17 07:30 Intake & Output 07/03/17 07/04/17 07/05/17 06:59 06:59 06:59 Intake Total 2324 2678 Output Total 0 1300 Balance 2324 1378 Weight 77.2 kg 79 kg General appearance: PRESENT: no acute distress, well-developed, well-nourished Head exam: PRESENT: atraumatic, normocephalic Eye exam: PRESENT: conjunctiva pink, EOMI, PERRLA. ABSENT: scleral icterus Ear exam: PRESENT: normal external ear exam Mouth exam: PRESENT: moist, tongue midline Neck exam: ABSENT: carotid bruit, JVD, lymphadenopathy, thyromegaly Respiratory exam: PRESENT: other - Right side with crackles heard left side with good breath sounds heard clear no wheezing or accessory muscles used Cardiovascular exam: PRESENT: RRR. ABSENT: diastolic murmur, rubs, systolic murmur Pulses: PRESENT: normal dorsalis pedis pul Vascular exam: PRESENT: normal capillary refill GI/Abdominal exam: PRESENT: normal bowel sounds, soft. ABSENT: distended, guarding, mass, organolmegaly, rebound, tenderness Rectal exam: PRESENT: deferred Extremities exam: PRESENT: full ROM. ABSENT: calf tenderness, clubbing, pedal edema Neurological exam: PRESENT: alert, awake, oriented to person, oriented to place , oriented to time, oriented to situation, CN II-XII grossly intact. ABSENT: motor sensory deficit Psychiatric exam: PRESENT: depressed, flat affect. ABSENT: agitated, anxious, appropriate affect, homicidal ideation, manic, normal mood, suicidal ideation, unusual affect, other Skin exam: PRESENT: dry, intact, warm. ABSENT: cyanosis, rash Results Laboratory Results: 07/04/17 01:02 07/04/17 01:02 07/03/17 07/03/17 07/03/17 12:18 14:20 14:20 WBC RBC Hgb Hct MCV MCH MCHC RDW Plt Count Seg Neutrophils % Lymphocytes % Monocytes % Eosinophils % Basophils % Absolute Neutrophils Absolute Lymphocytes Absolute Monocytes Absolute Eosinophils Absolute Basophils Sodium 136.3 L 136.7 L Potassium 5.8 H 4.8 D Chloride 103 105 Carbon Dioxide 16 L 15 L Anion Gap 17 17 BUN 15 15 Creatinine 0.86 0.87 Est GFR ( Amer) > 60 > 60 Est GFR (Non-Af Amer) > 60 > 60 Glucose 489 H* 321 H Calcium 9.3 9.3 Blood Type A POSITIVE Antibody Screen NEGATIVE 07/03/17 07/03/17 07/04/17 19:17 22:48 01:02 WBC RBC Hgb Hct MCV MCH MCHC RDW Plt Count Seg Neutrophils % Lymphocytes % Monocytes % Eosinophils % Basophils % Absolute Neutrophils Absolute Lymphocytes Absolute Monocytes Absolute Eosinophils Absolute Basophils Sodium 136.2 L 133.4 L 137.1 Potassium 4.8 4.9 4.7 Chloride 104 104 106 Carbon Dioxide 23 18 L 17 L Anion Gap 9 11 14 BUN 13 13 14 Creatinine 0.85 0.82 0.87 Est GFR ( Amer) > 60 > 60 > 60 Est GFR (Non-Af Amer) > 60 > 60 > 60 Glucose 169 H 260 H 275 H Calcium 9.0 9.3 9.1 Blood Type Antibody Screen 07/04/17 01:02 WBC 17.6 H RBC 4.60 Hgb 10.7 L D Hct 33.8 L MCV 74 L D MCH 23.3 L MCHC 31.7 L RDW 24.3 H Plt Count 268 Seg Neutrophils % 84.8 H Lymphocytes % 7.2 L Monocytes % 7.6 Eosinophils % 0.0 Basophils % 0.4 Absolute Neutrophils 15.0 H Absolute Lymphocytes 1.3 Absolute Monocytes 1.3 Absolute Eosinophils 0.0 Absolute Basophils 0.1 Sodium Potassium Chloride Carbon Dioxide Anion Gap BUN Creatinine Est GFR ( Amer) Est GFR (Non-Af Amer) Glucose Calcium Blood Type Antibody Screen Impressions: Abdomen X-Ray 07/03/17 06:25 IMPRESSION: Small amount of gas in the stomach and the ascending colon. Otherwise, there is paucity of bowel gas. Chest X-Ray 07/04/17 07:00 IMPRESSION: Patchy airspace disease in the right lower lobe, atelectasis versus pneumonia Assessment & Plan - Diagnosis (1) Aspiration pneumonia Qualifiers: Aspiration pneumonia type: due to vomit Laterality: right Lung location: lower lobe of lung Qualified Code(s): J69.0 - Pneumonitis due to inhalation of food and vomit Is this a current diagnosis for this admission?: Yes Plan: Suspect gram-negative organism: patient noted to have elevated white count with temperature of 100.6. Will place on Rocephin and Flagyl. Of note patient has multiple drug allergies (2) Diabetic ketoacidosis associated with type 1 diabetes mellitus Qualifiers: Diabetes mellitus complication detail: without coma Qualified Code(s): E10.10 - Type 1 diabetes mellitus with ketoacidosis without coma Is this a current diagnosis for this admission?: Yes Plan: Will continue current treatment. Will check UA. (3) SIRS (systemic inflammatory response syndrome) Is this a current diagnosis for this admission?: Yes Plan: Will continue to monitor. (4) Renal transplant recipient Is this a current diagnosis for this admission?: Yes Plan: Will continue current medications. (5) Constipation Is this a current diagnosis for this admission?: Yes Plan: Will give Soap Suds Enema. Will place on scheduled Colace. (6) Emesis Is this a current diagnosis for this admission?: Yes Plan: Pt scheduled for EGD today. (7) Anemia Is this a current diagnosis for this admission?: Yes Plan: S/P 2 units of PRBCs. Pt scheduled for EGD. (8) Chronic bilateral lower abdominal pain Is this a current diagnosis for this admission?: Yes Plan: Pt will have EGD today. (9) DVT prophylaxis Is this a current diagnosis for this admission?: Yes Plan: Heparin - Time Time Spent with patient: 25-34 minutes Medications reviewed and adjusted accordingly: Yes Anticipated discharge: Home - Inpatient Certification Medical Necessity: Risk of Diagnosis Which Will Require Inpatient Eval/Care/ Monitoring
[2017-07-04] MEDS: DOCUSATE SODIUM 100 MG CAPSULE PO SCH ×2 (10:50→20:29)
[2017-07-04] MEDS: GLYCERIN (PEDIATRIC) SUPP.RECT PR SCH (11:10)
[2017-07-04] MEDS ORDERED: LEVOTHYROXINE SODIUM 0.025 MG TABLET PO ONE (12:00)
[2017-07-04] MEDS ORDERED: DULOXETINE HCL 30 MG CAPSULE.DR PO ONE (12:00)
[2017-07-04] MEDS ORDERED: LEVOTHYROXINE SODIUM 0.1 MG TABLET PO ONE (12:00)
[2017-07-04] MEDS: CEFTRIAXONE 2 GM/D5W RTU 2 GM/50 ML RTUPB IV SCH (12:23)
[2017-07-04] MEDS: HUM INSULIN NPH/REG INSULIN HM 100 UNIT/1 ML 3 ML SUBCUT SCH (13:07)
[2017-07-04] MEDS ORDERED: HUM INSULIN NPH/REG INSULIN HM 100 UNIT/1 ML 3 ML SUBCUT ONE (13:10)
[2017-07-04] MEDS ORDERED: NALOXONE HCL INJ/PF 0.4 MG/1 ML SDV ONE (15:48)
[2017-07-04] MEDS ORDERED: FLUMAZENIL INJ 0.5 MG/5 ML VIAL ONE (15:49)
[2017-07-04] MEDS ORDERED: EPINEPHRINE INJ 1 MG/10 ML DISP.SYRIN ONE (15:49)
[2017-07-04] MEDS ORDERED: GLUCAGON,HUMAN RECOMB 1 MG INJ ONE (15:49)
[2017-07-04] MEDS: MIDAZOLAM 2 MG/2 ML INJ ONE ×2 (17:58→18:04)
[2017-07-04] MEDS: FENTANYL CITRATE INJ/PF 100 MCG/2 ML AMPUL ONE ×2 (18:00→18:08)
--- NOTE | 2017-07-04 18:10 | PDOC CONSULTATION ---
Consultation Consult Date: 07/03/17 History of Present Illness Admission Date/PCP: 07/02/17 19:53 History of Present Illness: This is a 56-year-old lady who was admitted on 07/02/2017 with nausea, vomiting, and DKA. Consultation was requested for severe anemia. On admission her hemoglobin was 8.3 about 12 hours later it was 7.3. She has received 2 units of blood and her hemoglobin is 10.7. She has a history of anemia and review of her blood work showed a hemoglobin of 10.9 in November 2013 and about the same number in May 2016. She has microcytosis with a ferritin of 7, serum iron of 18 and percentage saturation of 5. She denies melena but has seen bright red blood occasionally after wiping. Her bowels are moving regularly prior to this admission. She also denied abdominal pain. She has never had an EGD or colonoscopy. Her chest x-ray performed today suggests a right lower lobe pneumonia Past Medical History Cardiac Medical History: Reports: Hyperlipidema, Hypertension Neurological Medical History: Denies: Seizures Endocrine Medical History: Reports: Diabetes Mellitus Type 1, Diabetes Mellitus Type 2 Psychiatric Medical History: Reports: Depression, General Anxiety Disorder Hematology: Reports: Anemia Past Surgical History Past Surgical History: Reports: Appendectomy, Section, Cholecystectomy , Hysterectomy, Renal Transplant, Tubal Ligation Social History Smoking Status: Never Smoker - Advance Directive Resuscitation Status: Full Code Family History Family History: Hypertension Parental Family History Reviewed: No Children Family History Reviewed: NA Sibling(s) Family History Reviewed.: NA Medication/Allergy Home Medications: Aspirin 81 mg PO DAILY 07/02/17 Cholecalciferol (Vitamin D3) [Vitamin D3] 2,000 unit PO DAILY 07/02/17 Clonazepam 1 mg PO Q12 07/02/17 Clonidine HCl 0.1 mg PO QHS 07/02/17 Cyclobenzaprine HCl 10 mg PO BIDP PRN 07/02/17 Duloxetine HCl [Cymbalta] 60 mg PO Q12 07/02/17 Ferrous Sulfate 325 mg PO MEALS 07/02/17 Hydromorphone HCl 2 mg PO Q6HP PRN 07/02/17 Insulin Aspart [Novolog Insulin 100 Unit/1 ml 10 ml] 0 unit SUBCUT .SLD SCALE Levothyroxine Sodium 125 mcg PO QAM 07/02/17 Losartan Potassium [Cozaar 25 mg Tablet] 25 mg PO DAILY 07/02/17 Magnesium Oxide 400 mg PO BID 07/02/17 Methadone HCl 5 mg PO DAILY 07/02/17 Metoprolol Tartrate [Lopressor 25 mg Tablet] 12.5 mg PO QHS 07/02/17 Pantoprazole Sodium [Protonix] 40 mg PO BID 07/02/17 Prednisone 5 mg PO QAM 07/02/17 Simvastatin 40 mg PO QHS 07/02/17 Allergies/Adverse Reactions: amoxicillin Allergy (Verified 07/04/17 11:06) aspirin Allergy (Verified 07/02/17 15:55) clindamycin Allergy (Verified 07/02/17 17:16) divalproex sodium [From Depakote] Allergy (Verified 07/02/17 17:16) gabapentin [From Neurontin] Allergy (Verified 07/02/17 17:16) ibuprofen Allergy (Verified 07/02/17 17:16) iodine Allergy (Verified 07/02/17 17:16) iron Allergy (Verified 07/02/17 17:16) metoclopramide [From Reglan] Allergy (Verified 07/02/17 17:16) morphine Allergy (Verified 07/02/17 17:16) nalbuphine [From Nubain] Allergy (Verified 07/02/17 17:16) NSAIDS (Non-Steroidal Anti-Inflamma Allergy (Verified 07/02/17 15:55) orange juice Allergy (Verified 07/02/17 17:16) paricalcitol [From Zemplar] Allergy (Verified 07/02/17 17:16) pregabalin [From Lyrica] Allergy (Verified 07/02/17 17:16) Sulfa (Sulfonamide Antibiotics) Allergy (Verified 07/02/17 15:55) topiramate [From Topamax] Allergy (Verified 07/02/17 17:16) IVP dye Allergy (Uncoded 07/02/17 17:16) seafood Allergy (Uncoded 07/02/17 17:16) Review of Systems All systems: reviewed and no additional remarkable complaints except as stated Physical Exam Vital Signs: Temp Pulse Resp BP Pulse Ox 98.1 F 110 H 22 H 129/61 H 96 07/04/17 17:40 07/04/17 17:55 07/04/17 17:55 07/04/17 17:55 07/04/17 17:55 Intake & Output 07/03/17 07/04/17 07/05/17 06:59 06:59 06:59 Intake Total 2324 2678 237 Output Total 0 1300 1650 Balance 2324 1378 -1413 Weight 77.2 kg 79 kg Exam: General: Patient is alert and looks well. HEENT: There is pallor but no jaundice. She is obese. PERRLA. Oropharynx normal Respiratory: No chest deformity. No respiratory distress. Chest wall palpitation was unremarkable. Breath sounds were normal Cardiovascular: Heart sounds 1 and 2 normal with no murmurs. Abdominal: Not distended. Soft and nontender. Liver and spleen not palpable. No ascites demonstrated. Bowel sounds active. Rectal examination was deferred. Extremities: No edema Neurological: Alert and oriented x4. Grossly nonfocal. She is sleepy though she has been using Dilaudid [id number] Skin: No significant rash Psychological: Normal affect Results Laboratory Results: 07/04/17 01:02 07/04/17 01:02 07/03/17 07/03/17 07/03/17 14:20 19:17 22:48 WBC RBC Hgb Hct MCV MCH MCHC RDW Plt Count Seg Neutrophils % Lymphocytes % Monocytes % Eosinophils % Basophils % Absolute Neutrophils Absolute Lymphocytes Absolute Monocytes Absolute Eosinophils Absolute Basophils Sodium 136.2 L 133.4 L Potassium 4.8 4.9 Chloride 104 104 Carbon Dioxide 23 18 L Anion Gap 9 11 BUN 13 13 Creatinine 0.85 0.82 Est GFR ( Amer) > 60 > 60 Est GFR (Non-Af Amer) > 60 > 60 Glucose 169 H 260 H Calcium 9.0 9.3 Urine Color Urine Appearance Urine pH Ur Specific Purvis Urine Protein Urine Glucose (UA) Urine Ketones Urine Blood Urine Nitrite Ur Leukocyte Esterase Urine WBC (Auto) Urine RBC (Auto) Blood Type A POSITIVE Antibody Screen NEGATIVE 07/04/17 07/04/17 07/04/17 01:02 01:02 09:35 WBC 17.6 H RBC 4.60 Hgb 10.7 L D Hct 33.8 L MCV 74 L D MCH 23.3 L MCHC 31.7 L RDW 24.3 H Plt Count 268 Seg Neutrophils % 84.8 H Lymphocytes % 7.2 L Monocytes % 7.6 Eosinophils % 0.0 Basophils % 0.4 Absolute Neutrophils 15.0 H Absolute Lymphocytes 1.3 Absolute Monocytes 1.3 Absolute Eosinophils 0.0 Absolute Basophils 0.1 Sodium 137.1 Potassium 4.7 Chloride 106 Carbon Dioxide 17 L Anion Gap 14 BUN 14 Creatinine 0.87 Est GFR ( Amer) > 60 Est GFR (Non-Af Amer) > 60 Glucose 275 H Calcium 9.1 Urine Color YELLOW Urine Appearance CLEAR Urine pH 5.0 Ur Specific Purvis 1.016 Urine Protein 30 H Urine Glucose (UA) 150 H Urine Ketones 20 H Urine Blood SMALL H Urine Nitrite NEGATIVE Ur Leukocyte Esterase TRACE H Urine WBC (Auto) 9 Urine RBC (Auto) 0 Blood Type Antibody Screen Impressions: Abdomen X-Ray 07/03/17 06:25 IMPRESSION: Small amount of gas in the stomach and the ascending colon. Otherwise, there is paucity of bowel gas. Chest X-Ray 07/04/17 07:00 IMPRESSION: Patchy airspace disease in the right lower lobe, atelectasis versus pneumonia Assessment & Plan - Diagnosis (1) Iron deficiency anemia Is this a current diagnosis for this admission?: Yes Plan: The etiology for her iron deficiency anemia is unclear. She does require an EGD which will be performed now, and a colonoscopy which we could perform as outpatient. She currently has DKA and a pneumonia. She may also need a capsule endoscopy of the small bowel if her colonoscopy is unremarkable (2) Rectal bleeding Plan: This may be hemorrhoids but neoplasm will be ruled out (3) Diabetic ketoacidosis associated with type 1 diabetes mellitus Qualifiers: Diabetes mellitus complication detail: without coma Qualified Code(s): E10.10 - Type 1 diabetes mellitus with ketoacidosis without coma Is this a current diagnosis for this admission?: Yes
--- NOTE | 2017-07-04 18:11 | Operative Report ---
Operative Report DATE OF SURGERY: 07/04/17 Operative Report: Pre-op diagnosis: Iron deficiency anemia Post-op diagnosis: Normal Surgery: Esophagogastroduodenoscopy Medications: Versed 2mg Fentanyl 75mcg IV push Tissue removed: None Procedure: After informed consent obtained from patient, the throat was sprayed with Hurricane and conscious sedation was achieved. The upper endoscope was inserted into the esophagus under direct vision and advanced into the stomach. The duodenum was entered and examined to the second part. Endoscope was then slowly pulled out of the patient as the mucosa was examined into details. Patient tolerated procedure well. Findings Esophagus: Normal Z-line at: 38 cm Antrum: Normal Body: Normal Fundus: Normal Duodenum first part: Normal Duodenum second part: Normal Plan: Continue management OPERATION: .
[2017-07-04] MEDS: DULOXETINE HCL 30 MG CAPSULE.DR PO SCH (21:10)
[2017-07-04] MEDS: CLONIDINE HCL 0.1 MG TABLET PO SCH (21:13)
[2017-07-04] MEDS: METOPROLOL TARTRATE 25 MG TABLET PO SCH (21:13)
[2017-07-04] MEDS: SIMVASTATIN 40 MG TABLET PO SCH (21:13)
[2017-07-04] MEDS: METRONIDAZOLE 500 MG TABLET PO SCH (21:13)
[2017-07-04] MEDS ORDERED: HUM INSULIN NPH/REG INSULIN HM 100 UNIT/1 ML 3 ML SUBCUT SCH (22:45)
[2017-07-05 04:52] LABS: HEMATOCRIT 31.9 % (36.0-47.0); HEMOGLOBIN 10.2 g/dL (12.0-15.5); HGB HCT DIFFERENCE -1.3; MEAN CORPUSCULAR HEMOGLOBIN 23.2 pg (27.0-33.4); MEAN CORPUSCULAR VOLUME 73 fl (80-97); RED CELL DISTRIBUTION WIDTH 24.1 % (11.5-14.0)
[2017-07-05 05:05] LABS: ANION GAP 7 (5-19); BLOOD UREA NITROGEN 12 mg/dL (7-20); CALCIUM 9.3 mg/dL (8.4-10.2); CARBON DIOXIDE 26 mmol/L (22-30); CHLORIDE 104 mmol/L (98-107); CREATININE RESULT 0.77 mg/dL (0.52-1.25); GLUCOSE 225 mg/dL (75-110); POTASSIUM 4.6 mmol/L (3.6-5.0); SODIUM 137.1 mmol/L (137-145)
[2017-07-05] MEDS: METRONIDAZOLE 500 MG TABLET PO SCH ×3 (05:42→22:30)
[2017-07-05] MEDS: HEPARIN SOD (PORCINE) 5,000 UNIT/ML 1 ML SYRINGE SUBCUT SCH ×3 (05:46→22:32)
[2017-07-05] MEDS ORDERED: (PENDING PHARMACY ID) (Levothyroxine Sodium [Levothyroxine Sodium] 125 MCG) PO SCH (08:00)
[2017-07-05] MEDS: HUM INSULIN NPH/REG INSULIN HM 100 UNIT/1 ML 3 ML SUBCUT SCH ×2 (08:07→17:30)
[2017-07-05] MEDS: LEVOTHYROXINE SODIUM 0.1 MG TABLET PO SCH (08:10)
[2017-07-05] MEDS: PREDNISONE 5 MG TABLET PO SCH (08:10)
[2017-07-05] MEDS: LEVOTHYROXINE SODIUM 0.025 MG TABLET PO SCH (08:10)
[2017-07-05] MEDS: INSULIN LISPRO 100 UNIT/ML 3 ML VIAL SUBCUT PRN ×3 (08:12→17:34)
[2017-07-05] MEDS: CLONAZEPAM 1 MG TABLET PO SCH ×2 (09:58→17:35)
[2017-07-05] MEDS: TACROLIMUS ANHYDROUS 1 MG CAPSULE PO SCH ×2 (09:58→17:36)
[2017-07-05] MEDS: CITALOPRAM HYDROBROMIDE 20 MG TABLET PO SCH (09:58)
[2017-07-05] MEDS: DOCUSATE SODIUM 100 MG CAPSULE PO SCH ×2 (09:59→17:35)
[2017-07-05] MEDS: METHADONE HCL 10 MG TABLET PO SCH (09:59)
[2017-07-05] MEDS: ASPIRIN 81 MG TABLET, CHEWABLE PO SCH (09:59)
[2017-07-05] MEDS: MAGNESIUM OXIDE 400 MG TABLET PO SCH ×2 (10:01→17:35)
[2017-07-05] MEDS: LANSOPRAZOLE 30 MG TAB.RAP.DR PO SCH (10:02)
[2017-07-05] MEDS: DULOXETINE HCL 30 MG CAPSULE.DR PO SCH ×2 (10:02→22:29)
[2017-07-05] MEDS: CHOLECALCIFEROL (D3) 1,000 UNIT TABLET PO SCH (10:02)
[2017-07-05] MEDS: GLYCERIN (PEDIATRIC) SUPP.RECT PR SCH (10:03)
[2017-07-05] MEDS: POLYETHYLENE GLYCOL 3350 POWDER 17 GM/1 PACKET PO SCH ×2 (10:03→17:35)
[2017-07-05] MEDS: CEFTRIAXONE 2 GM/D5W RTU 2 GM/50 ML RTUPB IV SCH (11:32)
--- NOTE | 2017-07-05 16:16 | PDOC PROGRESS REPORT ---
Subjective Progress Note for:: 07/05/17 Subjective:: No new issues this morning. She was trying to get patient to take medication however patient was refusing. Nurse was finally able to get patient to take medication. Physical Exam Vital Signs: Temp Pulse Resp BP Pulse Ox 98.3 F 103 H 18 139/87 H 90 L 07/05/17 04:41 07/05/17 07:00 07/05/17 04:41 07/05/17 04:41 07/05/17 04:41 Intake & Output 07/04/17 07/05/17 07/06/17 06:59 06:59 06:59 Intake Total 2678 804 Output Total 1300 1650 Balance 1378 -846 Weight 79 kg 77.8 kg General appearance: PRESENT: mild distress, well-developed, well-nourished Head exam: PRESENT: atraumatic, normocephalic Eye exam: PRESENT: conjunctiva pink, EOMI. ABSENT: scleral icterus Ear exam: PRESENT: normal external ear exam Mouth exam: PRESENT: moist, tongue midline Neck exam: ABSENT: carotid bruit, JVD, lymphadenopathy, thyromegaly Respiratory exam: PRESENT: clear to auscultation grayson. ABSENT: rales, rhonchi, wheezes Cardiovascular exam: PRESENT: RRR. ABSENT: diastolic murmur, rubs, systolic murmur Pulses: PRESENT: normal dorsalis pedis pul Vascular exam: PRESENT: normal capillary refill GI/Abdominal exam: PRESENT: normal bowel sounds, soft. ABSENT: distended, guarding, mass, organolmegaly, rebound, tenderness Rectal exam: PRESENT: deferred Extremities exam: PRESENT: full ROM. ABSENT: calf tenderness, clubbing, pedal edema Neurological exam: PRESENT: alert, awake, oriented to person Psychiatric exam: PRESENT: agitated, flat affect Skin exam: PRESENT: dry, intact, warm. ABSENT: cyanosis, rash Results Laboratory Results: 07/05/17 04:24 07/05/17 04:24 07/05/17 07/05/17 04:24 04:24 WBC 10.0 RBC 4.40 Hgb 10.2 L Hct 31.9 L MCV 73 L MCH 23.2 L MCHC 32.0 RDW 24.1 H Plt Count 248 Sodium 137.1 Potassium 4.6 Chloride 104 Carbon Dioxide 26 Anion Gap 7 BUN 12 Creatinine 0.77 Est GFR ( Amer) > 60 Est GFR (Non-Af Amer) > 60 Glucose 225 H Calcium 9.3 Impressions: Abdomen X-Ray 07/03/17 06:25 IMPRESSION: Small amount of gas in the stomach and the ascending colon. Otherwise, there is paucity of bowel gas. Chest X-Ray 07/04/17 07:00 IMPRESSION: Patchy airspace disease in the right lower lobe, atelectasis versus pneumonia Assessment & Plan - Diagnosis (1) Aspiration pneumonia Qualifiers: Aspiration pneumonia type: due to vomit Laterality: right Lung location: lower lobe of lung Qualified Code(s): J69.0 - Pneumonitis due to inhalation of food and vomit Is this a current diagnosis for this admission?: Yes Plan: Suspect gram-negative organism Right Lower Lobe: Rocephin and Flagyl. (2) Diabetic ketoacidosis associated with type 1 diabetes mellitus Qualifiers: Diabetes mellitus complication detail: without coma Qualified Code(s): E10.10 - Type 1 diabetes mellitus with ketoacidosis without coma Is this a current diagnosis for this admission?: Yes Plan: Will continue current treatment. Will check UA in am. Pt refuses medication. (3) SIRS (systemic inflammatory response syndrome) Is this a current diagnosis for this admission?: Yes Plan: Will continue to monitor. (4) Renal transplant recipient Is this a current diagnosis for this admission?: Yes Plan: Will continue current medications. (5) Constipation Is this a current diagnosis for this admission?: Yes Plan: resolved (6) Emesis Is this a current diagnosis for this admission?: Yes Plan: EGD normal. (7) Anemia Is this a current diagnosis for this admission?: Yes Plan: S/P 2 units of PRBCs. (8) Chronic bilateral lower abdominal pain Is this a current diagnosis for this admission?: Yes Plan: EGD normal (9) DVT prophylaxis Is this a current diagnosis for this admission?: Yes Plan: Heparin - Time Time Spent with patient: 25-34 minutes
[2017-07-05 21:16] LABS: ABSOLUTE BASOPHILS # (AUTO) 0.1 10^3/uL (0.0-0.2); ABSOLUTE LYMPHOCYTES (AUTO) 1.3 10^3/uL (0.5-4.7); ABSOLUTE NEUT (AUTO) 6.2 10^3/uL (1.7-8.2); BASOPHILS % (AUTO) 0.8 % (0-2); EOSINOPHILS % (AUTO) 0.5 % (0-6); HEMATOCRIT 31.5 % (36.0-47.0); HEMOGLOBIN 10.3 g/dL (12.0-15.5); HGB HCT DIFFERENCE -0.6; LYMPHOCYTES % (AUTO) 15.3 % (13-45); MEAN CORPUSCULAR HEMOGLOBIN 23.5 pg (27.0-33.4); MEAN CORPUSCULAR HGB CONC 32.7 g/dL (32.0-36.0); MEAN CORPUSCULAR VOLUME 72 fl (80-97); MONOCYTES % (AUTO) 11.6 % (3-13); RED BLOOD COUNT 4.39 10^6/uL (3.72-5.28); RED CELL DISTRIBUTION WIDTH 24.5 % (11.5-14.0); SEGMENTED NEUTROPHILS % (AUTO) 71.8 % (42-78); WHITE BLOOD COUNT 8.6 10^3/uL (4.0-10.5)
[2017-07-05 21:33] LABS: ANISOCYTOSIS 3+; HYPOCHROMASIA SLIGHT; MICROCYTOSIS 1+; OVALOCYTES SLIGHT; POIKILOCYTOSIS 2+; TARGET CELLS SLIGHT; TOXIC GRANULATION SLIGHT
--- NOTE | 2017-07-05 22:17 | PDOC CONSULTATION ---
Consultation Consult Date: 07/05/17 Consult reason:: Rectal bleed History of Present Illness Admission Date/PCP: 07/02/17 19:53 History of Present Illness: 56-year-old female type I diabetic admitted for hyperglycemia with nausea and vomiting on 07/03/2017. She had a initial EGD by Dr. Hand which was done on 07/04/2017 and noted to be essentially normal. Tonight the nurses noted that patient did complain of some abdominal pains followed by bloody diarrhea. However no stool for Hemoccult specimen was taken. At any rate a stat CBC was done and the hemoglobin was 10.2 this morning and this about a half an hour ago. Now noted to be 10.3. We are awaiting the coagulation results. Past Medical History Cardiac Medical History: Reports: Hyperlipidema, Hypertension Neurological Medical History: Denies: Seizures Endocrine Medical History: Reports: Diabetes Mellitus Type 1, Diabetes Mellitus Type 2 Psychiatric Medical History: Reports: Depression, General Anxiety Disorder Hematology: Reports: Anemia Past Surgical History Past Surgical History: Reports: Appendectomy, Section, Cholecystectomy , Hysterectomy, Renal Transplant, Tubal Ligation Social History Smoking Status: Never Smoker - Advance Directive Resuscitation Status: Full Code Family History Family History: Hypertension Parental Family History Reviewed: Yes Children Family History Reviewed: Yes Sibling(s) Family History Reviewed.: Yes Medication/Allergy Home Medications: Aspirin 81 mg PO DAILY 07/02/17 Cholecalciferol (Vitamin D3) [Vitamin D3] 2,000 unit PO DAILY 07/02/17 Clonazepam 1 mg PO Q12 07/02/17 Clonidine HCl 0.1 mg PO QHS 07/02/17 Cyclobenzaprine HCl 10 mg PO BIDP PRN 07/02/17 Duloxetine HCl [Cymbalta] 60 mg PO Q12 07/02/17 Ferrous Sulfate 325 mg PO MEALS 07/02/17 Hydromorphone HCl 2 mg PO Q6HP PRN 07/02/17 Insulin Aspart [Novolog Insulin 100 Unit/1 ml 10 ml] 0 unit SUBCUT .SLD SCALE Levothyroxine Sodium 125 mcg PO QAM 07/02/17 Losartan Potassium [Cozaar 25 mg Tablet] 25 mg PO DAILY 07/02/17 Magnesium Oxide 400 mg PO BID 07/02/17 Methadone HCl 5 mg PO DAILY 07/02/17 Metoprolol Tartrate [Lopressor 25 mg Tablet] 12.5 mg PO QHS 07/02/17 Pantoprazole Sodium [Protonix] 40 mg PO BID 07/02/17 Prednisone 5 mg PO QAM 07/02/17 Simvastatin 40 mg PO QHS 07/02/17 Allergies/Adverse Reactions: amoxicillin Allergy (Verified 07/04/17 11:06) aspirin Allergy (Verified 07/02/17 15:55) clindamycin Allergy (Verified 07/02/17 17:16) divalproex sodium [From Depakote] Allergy (Verified 07/02/17 17:16) gabapentin [From Neurontin] Allergy (Verified 07/02/17 17:16) ibuprofen Allergy (Verified 07/02/17 17:16) iodine Allergy (Verified 07/02/17 17:16) iron Allergy (Verified 07/02/17 17:16) metoclopramide [From Reglan] Allergy (Verified 07/02/17 17:16) morphine Allergy (Verified 07/02/17 17:16) nalbuphine [From Nubain] Allergy (Verified 07/02/17 17:16) NSAIDS (Non-Steroidal Anti-Inflamma Allergy (Verified 07/02/17 15:55) orange juice Allergy (Verified 07/02/17 17:16) paricalcitol [From Zemplar] Allergy (Verified 07/02/17 17:16) pregabalin [From Lyrica] Allergy (Verified 07/02/17 17:16) Sulfa (Sulfonamide Antibiotics) Allergy (Verified 07/02/17 15:55) topiramate [From Topamax] Allergy (Verified 07/02/17 17:16) IVP dye Allergy (Uncoded 07/02/17 17:16) seafood Allergy (Uncoded 07/02/17 17:16) Review of Systems Constitutional: PRESENT: other - Denies any chills or fever Eyes: PRESENT: other - No visible disturbance Ears: PRESENT: other - No hearing changes Nose, Mouth, and Throat: PRESENT: other - No sore throat Cardiovascular: PRESENT: other - Denies chest pain Respiratory: PRESENT: other - Denies shortness of breath Gastrointestinal: PRESENT: abdominal pain - Mild generalized abdominal pains which she claims it has improved since she was admitted on 07/03/2017 Genitourinary: PRESENT: other - Denies dysuria Musculoskeletal: PRESENT: other - No joint swelling Integumentary: PRESENT: other - No skin rash Neurological: PRESENT: other - No seizures Psychiatric: PRESENT: other - No suicidal ideation Endocrine: PRESENT: other - No polyuria polydipsia Hematologic/Lymphatic: PRESENT: other Physical Exam Vital Signs: Temp Pulse Resp BP Pulse Ox 98.6 F 116 H 18 172/83 H 95 07/05/17 20:19 07/05/17 20:19 07/05/17 20:19 07/05/17 20:19 07/05/17 20:19 Intake & Output 07/04/17 07/05/17 07/06/17 06:59 06:59 06:59 Intake Total 2678 804 978 Output Total 1300 1650 Balance 1378 -846 978 Weight 79 kg 77.8 kg General appearance: PRESENT: no acute distress Head exam: PRESENT: atraumatic, normocephalic Eye exam: PRESENT: conjunctiva pink Ear exam: PRESENT: normal external ear exam Mouth exam: PRESENT: moist, tongue midline Throat exam: PRESENT: other - No pharyngeal erythema Respiratory exam: PRESENT: clear to auscultation grayson Cardiovascular exam: PRESENT: tachycardia Pulses: PRESENT: normal femoral pulses Vascular exam: PRESENT: normal capillary refill GI/Abdominal exam: PRESENT: soft, other - Mild tenderness in the right paraumbilical area. There is also mild distention but abdomen is soft. She has some ecchymosis from heparin subcu injections Rectal exam: PRESENT: other - Rectal exam showed good sphincteric tone. The rectal vault is empty there is some minimal amount of trace stool in the examining finger. This was then wiped in a occult stool slide which will be sent to the lab. Incidentally patient had episode of hypoglycemia with a blood sugar of 45 and I have to wait for a few minutes while she is drinking can of soda because she was a little jittery prior to testing her blood sugar. Extremities exam: PRESENT: full ROM Musculoskeletal exam: PRESENT: full ROM Psychiatric exam: PRESENT: appropriate affect, normal mood Skin exam: PRESENT: dry, normal color, warm Results Laboratory Results: 07/05/17 20:55 07/05/17 04:24 07/05/17 07/05/17 07/05/17 04:24 04:24 20:55 WBC 10.0 8.6 RBC 4.40 4.39 Hgb 10.2 L 10.3 L Hct 31.9 L 31.5 L MCV 73 L 72 L MCH 23.2 L 23.5 L MCHC 32.0 32.7 RDW 24.1 H 24.5 H Plt Count 248 242 Seg Neutrophils % 71.8 Lymphocytes % 15.3 Monocytes % 11.6 Eosinophils % 0.5 Basophils % 0.8 Absolute Neutrophils 6.2 Absolute Lymphocytes 1.3 Absolute Monocytes 1.0 Absolute Eosinophils 0.0 Absolute Basophils 0.1 Sodium 137.1 Potassium 4.6 Chloride 104 Carbon Dioxide 26 Anion Gap 7 BUN 12 Creatinine 0.77 Est GFR ( Amer) > 60 Est GFR (Non-Af Amer) > 60 Glucose 225 H Calcium 9.3 Impressions: Abdomen X-Ray 07/03/17 06:25 IMPRESSION: Small amount of gas in the stomach and the ascending colon. Otherwise, there is paucity of bowel gas. Chest X-Ray 07/04/17 07:00 IMPRESSION: Patchy airspace disease in the right lower lobe, atelectasis versus pneumonia Assessment & Plan - Diagnosis (1) Iron deficiency anemia Is this a current diagnosis for this admission?: Yes (3) Renal transplant recipient Is this a current diagnosis for this admission?: Yes - Time Time Spent: 50 to 70 Minutes Critical Time spent with patient: 35 or more minutes - Plan Summary Plan Summary: #1 we will monitor vital signs make sure her blood pressure does not deteriorate 2. Monitor serial H&H 3. Check coags. The recent coag just noted to be INR of 1.2 and pro time of 14 seconds which are within normal range. 4. We will asked Dr. Le to do colonoscopy
[2017-07-05] MEDS: CLONIDINE HCL 0.1 MG TABLET PO SCH (22:28)
[2017-07-05] MEDS: METOPROLOL TARTRATE 25 MG TABLET PO SCH (22:29)
[2017-07-05] MEDS: SIMVASTATIN 40 MG TABLET PO SCH (22:29)
[2017-07-06 01:32] LABS: HEMOGLOBIN 10.8 g/dL (12.0-15.5); HGB HCT DIFFERENCE -0.6; MEAN CORPUSCULAR HEMOGLOBIN 23.4 pg (27.0-33.4); MEAN CORPUSCULAR HGB CONC 32.7 g/dL (32.0-36.0); MEAN CORPUSCULAR VOLUME 72 fl (80-97); RED BLOOD COUNT 4.62 10^6/uL (3.72-5.28); RED CELL DISTRIBUTION WIDTH 24.6 % (11.5-14.0)
[2017-07-06] MEDS: HEPARIN SOD (PORCINE) 5,000 UNIT/ML 1 ML SYRINGE SUBCUT SCH ×2 (06:04→13:54)
[2017-07-06] MEDS: METRONIDAZOLE 500 MG TABLET PO SCH ×3 (06:05→21:52)
[2017-07-06 06:29] LABS: HEMATOCRIT 34.4 % (36.0-47.0); HGB HCT DIFFERENCE -1.4; MEAN CORPUSCULAR HEMOGLOBIN 23.2 pg (27.0-33.4); MEAN CORPUSCULAR HGB CONC 31.9 g/dL (32.0-36.0); MEAN CORPUSCULAR VOLUME 73 fl (80-97); RED BLOOD COUNT 4.73 10^6/uL (3.72-5.28); RED CELL DISTRIBUTION WIDTH 24.8 % (11.5-14.0); WHITE BLOOD COUNT 9.3 10^3/uL (4.0-10.5)
[2017-07-06 06:56] LABS: BAND NEUTROPHILS % (MANUAL) 1 % (3-5); BASOPHILS % (MANUAL) 0 % (0-2); EOSINOPHILS % (MANUAL) 2 % (0-6); LYMPHOCYTES % (MANUAL) 16 % (13-45); NUCLEATED RED BLOOD CELLS 1 /100 WBC (0); TOTAL CELLS COUNTED 100
[2017-07-06 06:57] LABS: OVALOCYTES SLIGHT; TOXIC GRANULATION 1+; TOXIC VACUOLATION PRESENT
[2017-07-06 06:58] LABS: ANISOCYTOSIS 3+; MICROCYTOSIS 1+; POIKILOCYTOSIS SLIGHT; POLYCHROMASIA SLIGHT; TARGET CELLS SLIGHT
[2017-07-06] MEDS: HUM INSULIN NPH/REG INSULIN HM 100 UNIT/1 ML 3 ML SUBCUT SCH ×2 (09:03→16:56)
[2017-07-06] MEDS: ASPIRIN 81 MG TABLET, CHEWABLE PO SCH (09:09)
[2017-07-06] MEDS: LEVOTHYROXINE SODIUM 0.1 MG TABLET PO SCH (09:09)
[2017-07-06] MEDS: METHADONE HCL 10 MG TABLET PO SCH (09:10)
[2017-07-06] MEDS: CITALOPRAM HYDROBROMIDE 20 MG TABLET PO SCH (09:10)
[2017-07-06] MEDS: LANSOPRAZOLE 30 MG TAB.RAP.DR PO SCH (09:10)
[2017-07-06] MEDS: DULOXETINE HCL 30 MG CAPSULE.DR PO SCH ×2 (09:10→21:52)
[2017-07-06] MEDS: MAGNESIUM OXIDE 400 MG TABLET PO SCH ×2 (09:10→17:16)
[2017-07-06] MEDS: CHOLECALCIFEROL (D3) 1,000 UNIT TABLET PO SCH (09:18)
[2017-07-06] MEDS: PREDNISONE 5 MG TABLET PO SCH (09:19)
[2017-07-06] MEDS: CLONAZEPAM 1 MG TABLET PO SCH ×2 (09:19→17:17)
[2017-07-06] MEDS: LEVOTHYROXINE SODIUM 0.025 MG TABLET PO SCH (09:19)
[2017-07-06] MEDS: DOCUSATE SODIUM 100 MG CAPSULE PO SCH ×2 (09:19→17:17)
[2017-07-06] MEDS: GLYCERIN (PEDIATRIC) SUPP.RECT PR SCH (09:21)
[2017-07-06] MEDS: TACROLIMUS ANHYDROUS 1 MG CAPSULE PO SCH ×2 (09:21→17:17)
[2017-07-06] MEDS: POLYETHYLENE GLYCOL 3350 POWDER 17 GM/1 PACKET PO SCH ×2 (09:21→17:13)
[2017-07-06] MEDS: CEFTRIAXONE 2 GM/D5W RTU 2 GM/50 ML RTUPB IV SCH (14:01)
[2017-07-06] MEDS: INSULIN LISPRO 100 UNIT/ML 3 ML VIAL SUBCUT PRN (16:55)
--- NOTE | 2017-07-06 18:00 | PDOC PROGRESS REPORT ---
Subjective Progress Note for:: 07/06/17 Subjective:: Patient seen earlier this morning. Nursing states that patient had blood in rectum. Patient reports that she has continued to have bloody bowel movements. Surgery was asked to evaluate patient. Physical Exam Vital Signs: Temp Pulse Resp BP Pulse Ox 98.6 F 107 H 18 153/77 H 987 H 07/06/17 11:48 07/06/17 16:09 07/06/17 16:09 07/06/17 11:48 07/06/17 16:09 Intake & Output 07/05/17 07/06/17 07/07/17 06:59 06:59 06:59 Intake Total 804 1528 Output Total 1650 Balance -846 1528 Weight 77.8 kg 78.8 kg General appearance: PRESENT: no acute distress, well-developed, well-nourished Head exam: PRESENT: atraumatic, normocephalic Eye exam: PRESENT: conjunctiva pink, EOMI. ABSENT: scleral icterus Ear exam: PRESENT: normal external ear exam Mouth exam: PRESENT: moist, tongue midline Neck exam: ABSENT: carotid bruit, JVD, lymphadenopathy, thyromegaly Respiratory exam: PRESENT: clear to auscultation grayson. ABSENT: rales, rhonchi, wheezes Cardiovascular exam: PRESENT: RRR. ABSENT: diastolic murmur, rubs, systolic murmur Pulses: PRESENT: normal dorsalis pedis pul Vascular exam: PRESENT: normal capillary refill GI/Abdominal exam: PRESENT: normal bowel sounds, soft. ABSENT: distended, guarding, mass, organolmegaly, rebound, tenderness Rectal exam: PRESENT: deferred Extremities exam: PRESENT: full ROM. ABSENT: calf tenderness, clubbing, pedal edema Neurological exam: PRESENT: alert, awake, oriented to person, oriented to place , oriented to time, oriented to situation, CN II-XII grossly intact. ABSENT: motor sensory deficit Psychiatric exam: PRESENT: anxious, flat affect Skin exam: PRESENT: dry, intact, warm. ABSENT: cyanosis, rash Results Laboratory Results: 07/06/17 05:43 07/05/17 04:24 07/05/17 07/06/17 07/06/17 20:55 01:12 05:10 WBC 8.6 9.0 RBC 4.39 4.62 Hgb 10.3 L 10.8 L Hct 31.5 L 33.0 L MCV 72 L 72 L MCH 23.5 L 23.4 L MCHC 32.7 32.7 RDW 24.5 H 24.6 H Plt Count 242 240 Seg Neutrophils % 71.8 Lymphocytes % 15.3 Monocytes % 11.6 Eosinophils % 0.5 Basophils % 0.8 Absolute Neutrophils 6.2 Absolute Lymphocytes 1.3 Absolute Monocytes 1.0 Absolute Eosinophils 0.0 Absolute Basophils 0.1 Stool Occult Blood NEGATIVE 07/06/17 05:43 WBC 9.3 RBC 4.73 Hgb 11.0 L Hct 34.4 L MCV 73 L MCH 23.2 L MCHC 31.9 L RDW 24.8 H Plt Count 257 Seg Neutrophils % Not Reportable Lymphocytes % Not Reportable Monocytes % Not Reportable Eosinophils % Not Reportable Basophils % Not Reportable Absolute Neutrophils Not Reportable Absolute Lymphocytes Not Reportable Absolute Monocytes Not Reportable Absolute Eosinophils Not Reportable Absolute Basophils Not Reportable Stool Occult Blood Impressions: Abdomen X-Ray 07/03/17 06:25 IMPRESSION: Small amount of gas in the stomach and the ascending colon. Otherwise, there is paucity of bowel gas. Chest X-Ray 07/04/17 07:00 IMPRESSION: Patchy airspace disease in the right lower lobe, atelectasis versus pneumonia Assessment & Plan - Diagnosis (1) Aspiration pneumonia Qualifiers: Aspiration pneumonia type: due to vomit Laterality: right Lung location: lower lobe of lung Qualified Code(s): J69.0 - Pneumonitis due to inhalation of food and vomit Is this a current diagnosis for this admission?: Yes Plan: Suspect gram-negative organism Right Lower Lobe: Rocephin and Flagyl. (2) Rectal bleeding Is this a current diagnosis for this admission?: Yes Plan: Surgery planning to do colonoscopy tomorrow. (3) Diabetic ketoacidosis associated with type 1 diabetes mellitus Qualifiers: Diabetes mellitus complication detail: without coma Qualified Code(s): E10.10 - Type 1 diabetes mellitus with ketoacidosis without coma Is this a current diagnosis for this admission?: Yes Plan: We will continue current treatment. (4) SIRS (systemic inflammatory response syndrome) Is this a current diagnosis for this admission?: Yes Plan: Will continue to monitor. (5) Renal transplant recipient Is this a current diagnosis for this admission?: Yes Plan: Will continue current medications. (6) Constipation Is this a current diagnosis for this admission?: Yes Plan: resolved (7) Emesis Is this a current diagnosis for this admission?: Yes Plan: EGD normal. (8) Anemia Is this a current diagnosis for this admission?: Yes Plan: S/P 2 units of PRBCs. Hemoglobin remaining stable. (9) Chronic bilateral lower abdominal pain Is this a current diagnosis for this admission?: Yes Plan: EGD normal (10) DVT prophylaxis Is this a current diagnosis for this admission?: Yes Plan: scds
[2017-07-06] MEDS: SIMVASTATIN 40 MG TABLET PO SCH (21:52)
[2017-07-06] MEDS: METOPROLOL TARTRATE 25 MG TABLET PO SCH (21:52)
[2017-07-06] MEDS: CLONIDINE HCL 0.1 MG TABLET PO SCH (21:52)
[2017-07-07 05:16] LABS: ABSOLUTE BASOPHILS # (AUTO) 0.2 10^3/uL (0.0-0.2); ABSOLUTE EOSINOPHILS # (AUTO) 0.2 10^3/uL (0.0-0.6); ABSOLUTE LYMPHOCYTES (AUTO) 1.8 10^3/uL (0.5-4.7); ABSOLUTE MONOCYTES (AUTO) 1.2 10^3/uL (0.1-1.4); BASOPHILS % (AUTO) 1.8 % (0-2); HEMATOCRIT 36.1 % (36.0-47.0); HEMOGLOBIN 11.8 g/dL (12.0-15.5); HGB HCT DIFFERENCE -0.7; LYMPHOCYTES % (AUTO) 21.9 % (13-45); MEAN CORPUSCULAR HEMOGLOBIN 23.4 pg (27.0-33.4); MEAN CORPUSCULAR HGB CONC 32.6 g/dL (32.0-36.0); MEAN CORPUSCULAR VOLUME 72 fl (80-97); MONOCYTES % (AUTO) 14.7 % (3-13); RED BLOOD COUNT 5.03 10^6/uL (3.72-5.28); RED CELL DISTRIBUTION WIDTH 25.2 % (11.5-14.0); SEGMENTED NEUTROPHILS % (AUTO) 59.6 % (42-78); WHITE BLOOD COUNT 8.4 10^3/uL (4.0-10.5)
[2017-07-07 05:35] LABS: ANION GAP 10 (5-19); BLOOD UREA NITROGEN 8 mg/dL (7-20); CALCIUM 9.5 mg/dL (8.4-10.2); CARBON DIOXIDE 27 mmol/L (22-30); CHLORIDE 106 mmol/L (98-107); CREATININE RESULT 0.68 mg/dL (0.52-1.25); GLUCOSE 62 mg/dL (75-110); POTASSIUM 3.4 mmol/L (3.6-5.0); SODIUM 143.2 mmol/L (137-145)
[2017-07-07 05:44] LABS: ANISOCYTOSIS 3+; BURR CELLS SLIGHT; HYPOCHROMASIA 1+; MICROCYTOSIS 1+; OVALOCYTES 1+; POIKILOCYTOSIS 1+; POLYCHROMASIA SLIGHT; TARGET CELLS SLIGHT; TEAR DROP CELLS 1+
[2017-07-07] MEDS: METRONIDAZOLE 500 MG TABLET PO SCH ×3 (06:39→23:44)
[2017-07-07] MEDS ORDERED: POTASSIUM CHLORIDE 10 MEQ TABLET.SA PO ONE (07:00)
[2017-07-07] MEDS: HUM INSULIN NPH/REG INSULIN HM 100 UNIT/1 ML 3 ML SUBCUT SCH ×2 (09:57→17:52)
[2017-07-07] MEDS: DOCUSATE SODIUM 100 MG CAPSULE PO SCH ×2 (10:03→17:58)
[2017-07-07] MEDS: METHADONE HCL 10 MG TABLET PO SCH (10:04)
[2017-07-07] MEDS: DULOXETINE HCL 30 MG CAPSULE.DR PO SCH ×2 (10:04→23:44)
[2017-07-07] MEDS: CHOLECALCIFEROL (D3) 1,000 UNIT TABLET PO SCH (10:08)
[2017-07-07] MEDS: PREDNISONE 5 MG TABLET PO SCH (10:08)
[2017-07-07] MEDS: LEVOTHYROXINE SODIUM 0.025 MG TABLET PO SCH (10:09)
[2017-07-07] MEDS: LANSOPRAZOLE 30 MG TAB.RAP.DR PO SCH (10:10)
[2017-07-07] MEDS: LEVOTHYROXINE SODIUM 0.1 MG TABLET PO SCH (10:10)
[2017-07-07] MEDS: MAGNESIUM OXIDE 400 MG TABLET PO SCH ×2 (10:10→17:58)
[2017-07-07] MEDS: CITALOPRAM HYDROBROMIDE 20 MG TABLET PO SCH (10:10)
[2017-07-07] MEDS: ASPIRIN 81 MG TABLET, CHEWABLE PO SCH (10:11)
[2017-07-07] MEDS: CLONAZEPAM 1 MG TABLET PO SCH ×2 (10:11→17:59)
[2017-07-07] MEDS: TACROLIMUS ANHYDROUS 1 MG CAPSULE PO SCH ×2 (10:12→17:57)
[2017-07-07] MEDS: GLYCERIN (PEDIATRIC) SUPP.RECT PR SCH (10:13)
[2017-07-07] MEDS: POLYETHYLENE GLYCOL 3350 POWDER 17 GM/1 PACKET PO SCH ×2 (10:13→17:48)
[2017-07-07] MEDS: CEFTRIAXONE 2 GM/D5W RTU 2 GM/50 ML RTUPB IV SCH (12:43)
[2017-07-07] MEDS: INSULIN LISPRO 100 UNIT/ML 3 ML VIAL SUBCUT PRN (12:57)
--- NOTE | 2017-07-07 12:58 | PDOC PROGRESS REPORT ---
Subjective Progress Note for:: 07/07/17 Subjective:: [place] abdominal pains. Just had a small amount of well formed stools estrella brownish with blood tinged on water on stool. Physical Exam Vital Signs: Temp Pulse Resp BP Pulse Ox 97.8 F 85 20 107/74 94 07/07/17 05:15 07/07/17 09:40 07/07/17 09:40 07/07/17 05:15 07/07/17 09:40 Intake & Output 07/06/17 07/07/17 07/08/17 06:59 06:59 06:59 Intake Total 2269 393 Output Total 1200 Balance 1069 393 Weight 78.8 kg General appearance: PRESENT: no acute distress Exam: Her hemoglobin is up to 11.8 and her vital signs are stable. It appears that he her rectal bleeding may have stopped. GI/Abdominal exam: PRESENT: soft, tenderness - Minimal tenderness at lower abdomen Results Laboratory Results: 07/07/17 04:35 07/07/17 04:35 07/07/17 07/07/17 04:35 04:35 WBC 8.4 RBC 5.03 Hgb 11.8 L Hct 36.1 MCV 72 L MCH 23.4 L MCHC 32.6 RDW 25.2 H Plt Count 256 Seg Neutrophils % 59.6 Lymphocytes % 21.9 Monocytes % 14.7 H Eosinophils % 2.0 Basophils % 1.8 Absolute Neutrophils 5.0 Absolute Lymphocytes 1.8 Absolute Monocytes 1.2 Absolute Eosinophils 0.2 Absolute Basophils 0.2 Sodium 143.2 Potassium 3.4 L Chloride 106 Carbon Dioxide 27 Anion Gap 10 BUN 8 Creatinine 0.68 Est GFR ( Amer) > 60 Est GFR (Non-Af Amer) > 60 Glucose 62 L Calcium 9.5 Impressions: Abdomen X-Ray 07/03/17 06:25 IMPRESSION: Small amount of gas in the stomach and the ascending colon. Otherwise, there is paucity of bowel gas. Chest X-Ray 07/04/17 07:00 IMPRESSION: Patchy airspace disease in the right lower lobe, atelectasis versus pneumonia Assessment & Plan - Diagnosis (1) Iron deficiency anemia Is this a current diagnosis for this admission?: Yes (2) Rectal bleeding Is this a current diagnosis for this admission?: Yes (3) Renal transplant recipient Is this a current diagnosis for this admission?: Yes - Time Time Spent with patient: 15-24 minutes - Plan Summary Plan Summary: Her hemoglobin her hemoglobin is improved to 11.8 yesterday. Her bleeding may have stopped since she had a bowel movement this morning with formed stools were just light blood tinge in the water on stool. She still has some minimal tenderness in the in the lower abdomen. Since there is no GI or surgical history can do colonoscopy, then patient will need colonoscopy Monday by Dr. García. Patient just needs to be on bowel prep Monday night Meantime continue monitoring H&H daily
--- NOTE | 2017-07-07 14:16 | PDOC PROGRESS REPORT ---
Subjective Progress Note for:: 07/07/17 Subjective:: Patient states that she is doing okay this morning. Patient states she did have a bowel movement this morning that had some blood with it. Patient also complains of abdominal pain. Physical Exam Vital Signs: Temp Pulse Resp BP Pulse Ox 97.8 F 85 20 107/74 94 07/07/17 05:15 07/07/17 09:40 07/07/17 09:40 07/07/17 05:15 07/07/17 09:40 Intake & Output 07/06/17 07/07/17 07/08/17 06:59 06:59 06:59 Intake Total 2269 393 Output Total 1200 Balance 1069 393 Weight 78.8 kg General appearance: PRESENT: no acute distress, well-developed, well-nourished Head exam: PRESENT: atraumatic, normocephalic Eye exam: PRESENT: conjunctiva pink, EOMI. ABSENT: scleral icterus Ear exam: PRESENT: normal external ear exam Mouth exam: PRESENT: moist, tongue midline Neck exam: ABSENT: carotid bruit, JVD, lymphadenopathy, thyromegaly Respiratory exam: PRESENT: clear to auscultation grayson. ABSENT: rales, rhonchi, wheezes Cardiovascular exam: PRESENT: RRR. ABSENT: diastolic murmur, rubs, systolic murmur Pulses: PRESENT: normal dorsalis pedis pul GI/Abdominal exam: PRESENT: normal bowel sounds, soft, tenderness - Diffuse in all quadrants. ABSENT: distended, guarding, mass, organolmegaly, rebound Rectal exam: PRESENT: deferred Extremities exam: PRESENT: full ROM. ABSENT: calf tenderness, clubbing, pedal edema Neurological exam: PRESENT: alert, awake, oriented to person, oriented to place , CN II-XII grossly intact. ABSENT: motor sensory deficit Psychiatric exam: PRESENT: flat affect. ABSENT: homicidal ideation, suicidal ideation Skin exam: PRESENT: dry, intact, warm. ABSENT: cyanosis, rash Results Laboratory Results: 07/07/17 04:35 07/07/17 04:35 07/07/17 07/07/17 04:35 04:35 WBC 8.4 RBC 5.03 Hgb 11.8 L Hct 36.1 MCV 72 L MCH 23.4 L MCHC 32.6 RDW 25.2 H Plt Count 256 Seg Neutrophils % 59.6 Lymphocytes % 21.9 Monocytes % 14.7 H Eosinophils % 2.0 Basophils % 1.8 Absolute Neutrophils 5.0 Absolute Lymphocytes 1.8 Absolute Monocytes 1.2 Absolute Eosinophils 0.2 Absolute Basophils 0.2 Sodium 143.2 Potassium 3.4 L Chloride 106 Carbon Dioxide 27 Anion Gap 10 BUN 8 Creatinine 0.68 Est GFR ( Amer) > 60 Est GFR (Non-Af Amer) > 60 Glucose 62 L Calcium 9.5 Impressions: Abdomen X-Ray 07/03/17 06:25 IMPRESSION: Small amount of gas in the stomach and the ascending colon. Otherwise, there is paucity of bowel gas. Chest X-Ray 07/04/17 07:00 IMPRESSION: Patchy airspace disease in the right lower lobe, atelectasis versus pneumonia Assessment & Plan - Diagnosis (1) Aspiration pneumonia Qualifiers: Aspiration pneumonia type: due to vomit Laterality: right Lung location: lower lobe of lung Qualified Code(s): J69.0 - Pneumonitis due to inhalation of food and vomit Is this a current diagnosis for this admission?: Yes Plan: Suspect gram-negative organism Right Lower Lobe: Rocephin and Flagyl. (2) Rectal bleeding Is this a current diagnosis for this admission?: Yes Plan: Patient will have scope done on Monday. Pt's hemoglobin has remained stable. (3) Potassium (K) deficiency Is this a current diagnosis for this admission?: Yes Plan: Will give potassium replacement. Will check magnesium in am (4) Diabetic ketoacidosis associated with type 1 diabetes mellitus Qualifiers: Diabetes mellitus complication detail: without coma Qualified Code(s): E10.10 - Type 1 diabetes mellitus with ketoacidosis without coma Is this a current diagnosis for this admission?: Yes Plan: We will continue current treatment plan. (5) SIRS (systemic inflammatory response syndrome) Is this a current diagnosis for this admission?: Yes Plan: Resolved (6) Renal transplant recipient Is this a current diagnosis for this admission?: Yes Plan: Will continue home medications (7) Constipation Is this a current diagnosis for this admission?: Yes Plan: Resolved. (8) Emesis Is this a current diagnosis for this admission?: Yes Plan: Resolved. (9) Anemia Is this a current diagnosis for this admission?: Yes Plan: S/P 2 units of PRBCs. Hemoglobin remaining stable. (10) Chronic bilateral lower abdominal pain Is this a current diagnosis for this admission?: Yes Plan: EGD normal. Pt will need C-scope on Monday. (11) DVT prophylaxis Is this a current diagnosis for this admission?: Yes Plan: scds - Time Time Spent with patient: 15-24 minutes
[2017-07-07] MEDS: SIMVASTATIN 40 MG TABLET PO SCH (23:45)
[2017-07-07] MEDS: METOPROLOL TARTRATE 25 MG TABLET PO SCH (23:45)
[2017-07-07] MEDS: CLONIDINE HCL 0.1 MG TABLET PO SCH (23:45)
[2017-07-08 05:47] LABS: ABSOLUTE BASOPHILS # (AUTO) 0.1 10^3/uL (0.0-0.2); ABSOLUTE EOSINOPHILS # (AUTO) 0.1 10^3/uL (0.0-0.6); ABSOLUTE LYMPHOCYTES (AUTO) 1.8 10^3/uL (0.5-4.7); ABSOLUTE MONOCYTES (AUTO) 1.2 10^3/uL (0.1-1.4); ABSOLUTE NEUT (AUTO) 5.4 10^3/uL (1.7-8.2); BASOPHILS % (AUTO) 1.3 % (0-2); EOSINOPHILS % (AUTO) 1.6 % (0-6); HEMATOCRIT 35.6 % (36.0-47.0); HEMOGLOBIN 11.2 g/dL (12.0-15.5); MEAN CORPUSCULAR HEMOGLOBIN 23.1 pg (27.0-33.4); MEAN CORPUSCULAR HGB CONC 31.6 g/dL (32.0-36.0); MEAN CORPUSCULAR VOLUME 73 fl (80-97); MONOCYTES % (AUTO) 14.1 % (3-13); RED BLOOD COUNT 4.86 10^6/uL (3.72-5.28); RED CELL DISTRIBUTION WIDTH 25.2 % (11.5-14.0); WHITE BLOOD COUNT 8.7 10^3/uL (4.0-10.5)
[2017-07-08 06:06] LABS: ANION GAP 6 (5-19); BLOOD UREA NITROGEN 9 mg/dL (7-20); CALCIUM 9.1 mg/dL (8.4-10.2); CARBON DIOXIDE 30 mmol/L (22-30); CHLORIDE 105 mmol/L (98-107); CREATININE RESULT 0.67 mg/dL (0.52-1.25); GLUCOSE 146 mg/dL (75-110); MAGNESIUM 1.5 mg/dL (1.6-2.3); POTASSIUM 3.8 mmol/L (3.6-5.0); SODIUM 141.2 mmol/L (137-145)
[2017-07-08 06:10] LABS: ANISOCYTOSIS 3+; HYPOCHROMASIA 2+; MICROCYTOSIS 1+; OVALOCYTES 2+; POIKILOCYTOSIS 2+; POLYCHROMASIA 1+; TARGET CELLS 1+; TEAR DROP CELLS 1+
[2017-07-08] MEDS: METRONIDAZOLE 500 MG TABLET PO SCH ×3 (07:07→22:36)
[2017-07-08] MEDS: HUM INSULIN NPH/REG INSULIN HM 100 UNIT/1 ML 3 ML SUBCUT SCH ×2 (08:54→16:47)
[2017-07-08] MEDS: INSULIN LISPRO 100 UNIT/ML 3 ML VIAL SUBCUT PRN ×2 (08:57→16:49)
[2017-07-08] MEDS: LEVOTHYROXINE SODIUM 0.025 MG TABLET PO SCH (08:58)
[2017-07-08] MEDS: LEVOTHYROXINE SODIUM 0.1 MG TABLET PO SCH (08:58)
[2017-07-08] MEDS: PREDNISONE 5 MG TABLET PO SCH (08:59)
[2017-07-08] MEDS: METHADONE HCL 10 MG TABLET PO SCH (09:38)
[2017-07-08] MEDS: CHOLECALCIFEROL (D3) 1,000 UNIT TABLET PO SCH (09:39)
[2017-07-08] MEDS: CLONAZEPAM 1 MG TABLET PO SCH ×2 (09:40→18:02)
[2017-07-08] MEDS: LANSOPRAZOLE 30 MG TAB.RAP.DR PO SCH (09:40)
[2017-07-08] MEDS: CITALOPRAM HYDROBROMIDE 20 MG TABLET PO SCH (09:40)
[2017-07-08] MEDS: DOCUSATE SODIUM 100 MG CAPSULE PO SCH ×2 (09:40→18:02)
[2017-07-08] MEDS: ASPIRIN 81 MG TABLET, CHEWABLE PO SCH (09:40)
[2017-07-08] MEDS: TACROLIMUS ANHYDROUS 1 MG CAPSULE PO SCH ×2 (09:41→18:02)
[2017-07-08] MEDS: MAGNESIUM OXIDE 400 MG TABLET PO SCH ×2 (09:41→18:02)
[2017-07-08] MEDS: DULOXETINE HCL 30 MG CAPSULE.DR PO SCH ×2 (09:42→22:36)
[2017-07-08] MEDS: POLYETHYLENE GLYCOL 3350 POWDER 17 GM/1 PACKET PO SCH ×2 (09:43→18:01)
[2017-07-08] MEDS: GLYCERIN (PEDIATRIC) SUPP.RECT PR SCH (09:43)
[2017-07-08] MEDS: CEFTRIAXONE 2 GM/D5W RTU 2 GM/50 ML RTUPB IV SCH (12:06)
--- NOTE | 2017-07-08 16:11 | PDOC PROGRESS REPORT ---
Subjective Progress Note for:: 07/08/17 Subjective:: Patient states that she is having abdominal pain however the cramping has improved. Patient denied any blood in her stool this morning. Physical Exam Vital Signs: Temp Pulse Resp BP Pulse Ox 98.5 F 84 18 145/68 H 91 L 07/08/17 00:10 07/08/17 14:00 07/08/17 00:10 07/08/17 00:10 07/08/17 00:10 Intake & Output 07/07/17 07/08/17 07/09/17 06:59 06:59 06:59 Intake Total 393 1678 Balance 393 1678 Weight 79.6 kg General appearance: PRESENT: no acute distress, well-developed, well-nourished Head exam: PRESENT: atraumatic, normocephalic Eye exam: PRESENT: conjunctiva pink, EOMI. ABSENT: scleral icterus Ear exam: PRESENT: normal external ear exam Mouth exam: PRESENT: moist, tongue midline Neck exam: ABSENT: carotid bruit, JVD, lymphadenopathy, thyromegaly Respiratory exam: PRESENT: clear to auscultation grayson. ABSENT: rales, rhonchi, wheezes Cardiovascular exam: PRESENT: RRR. ABSENT: diastolic murmur, rubs, systolic murmur Pulses: PRESENT: normal dorsalis pedis pul Vascular exam: PRESENT: normal capillary refill GI/Abdominal exam: PRESENT: normal bowel sounds, soft. ABSENT: distended, guarding, mass, organolmegaly, rebound, tenderness Rectal exam: PRESENT: deferred Extremities exam: PRESENT: full ROM. ABSENT: calf tenderness, clubbing, pedal edema Neurological exam: PRESENT: alert, awake, oriented to person, oriented to place , oriented to time, oriented to situation, CN II-XII grossly intact. ABSENT: motor sensory deficit Psychiatric exam: PRESENT: flat affect Skin exam: PRESENT: dry, intact, warm. ABSENT: cyanosis, rash Results Laboratory Results: 07/08/17 04:36 07/08/17 04:36 07/08/17 07/08/17 04:36 04:36 WBC 8.7 RBC 4.86 Hgb 11.2 L Hct 35.6 L MCV 73 L MCH 23.1 L MCHC 31.6 L RDW 25.2 H Plt Count 257 Seg Neutrophils % 62.0 Lymphocytes % 21.0 Monocytes % 14.1 H Eosinophils % 1.6 Basophils % 1.3 Absolute Neutrophils 5.4 Absolute Lymphocytes 1.8 Absolute Monocytes 1.2 Absolute Eosinophils 0.1 Absolute Basophils 0.1 Sodium 141.2 Potassium 3.8 Chloride 105 Carbon Dioxide 30 Anion Gap 6 BUN 9 Creatinine 0.67 Est GFR ( Amer) > 60 Est GFR (Non-Af Amer) > 60 Glucose 146 H Calcium 9.1 Magnesium 1.5 L Impressions: Abdomen X-Ray 07/03/17 06:25 IMPRESSION: Small amount of gas in the stomach and the ascending colon. Otherwise, there is paucity of bowel gas. Chest X-Ray 07/04/17 07:00 IMPRESSION: Patchy airspace disease in the right lower lobe, atelectasis versus pneumonia Assessment & Plan - Diagnosis (1) Aspiration pneumonia Qualifiers: Aspiration pneumonia type: due to vomit Laterality: right Lung location: lower lobe of lung Qualified Code(s): J69.0 - Pneumonitis due to inhalation of food and vomit Is this a current diagnosis for this admission?: Yes Plan: Suspect gram-negative organism Right Lower Lobe: Rocephin and Flagyl. (2) Rectal bleeding Is this a current diagnosis for this admission?: Yes Plan: Patient will have scope done on Monday. Pt's hemoglobin has remained stable. (3) Hypomagnesemia Is this a current diagnosis for this admission?: Yes Plan: We will order for 3 g of magnesium to be given. Will check mag level in a.m. (4) Potassium (K) deficiency Is this a current diagnosis for this admission?: Yes Plan: Resolved. BMP in a.m. (5) Diabetic ketoacidosis associated with type 1 diabetes mellitus Qualifiers: Diabetes mellitus complication detail: without coma Qualified Code(s): E10.10 - Type 1 diabetes mellitus with ketoacidosis without coma Is this a current diagnosis for this admission?: Yes Plan: Resolved. (6) SIRS (systemic inflammatory response syndrome) Is this a current diagnosis for this admission?: Yes Plan: Resolved (7) Renal transplant recipient Is this a current diagnosis for this admission?: Yes Plan: Will continue home medications (8) Constipation Is this a current diagnosis for this admission?: Yes Plan: Resolved. (9) Emesis Is this a current diagnosis for this admission?: Yes Plan: Resolved. (10) Anemia Is this a current diagnosis for this admission?: Yes Plan: S/P 2 units of PRBCs. Hemoglobin remaining stable. (11) Chronic bilateral lower abdominal pain Is this a current diagnosis for this admission?: Yes Plan: EGD normal. Pt will need C-scope on Monday. (12) DVT prophylaxis Is this a current diagnosis for this admission?: Yes Plan: scds - Time Time Spent with patient: 15-24 minutes - Inpatient Certification Medical Necessity: Risk of Diagnosis Which Will Require Inpatient Eval/Care/ Monitoring
[2017-07-08] MEDS: MAGNESIUM SULFATE/D5W 1 GM/100 ML RTUPB IV SCH ×3 (16:49→22:36)
--- NOTE | 2017-07-08 17:57 | PDOC PROGRESS REPORT ---
Subjective Progress Note for:: 07/08/17 Subjective:: Patient had some crampy abdominal pains this morning but that has now subsided. She is eating dinner without any discomfort. She had a bowel movement today with no obvious gross blood. Physical Exam Vital Signs: Temp Pulse Resp BP Pulse Ox 98.5 F 84 18 145/68 H 91 L 07/08/17 00:10 07/08/17 14:00 07/08/17 00:10 07/08/17 00:10 07/08/17 00:10 Intake & Output 07/07/17 07/08/17 07/09/17 06:59 06:59 06:59 Intake Total 393 1678 Balance 393 1678 Weight 79.6 kg Exam: Abdomen is soft and nontender Results Laboratory Results: 07/08/17 04:36 07/08/17 04:36 07/08/17 07/08/17 04:36 04:36 WBC 8.7 RBC 4.86 Hgb 11.2 L Hct 35.6 L MCV 73 L MCH 23.1 L MCHC 31.6 L RDW 25.2 H Plt Count 257 Seg Neutrophils % 62.0 Lymphocytes % 21.0 Monocytes % 14.1 H Eosinophils % 1.6 Basophils % 1.3 Absolute Neutrophils 5.4 Absolute Lymphocytes 1.8 Absolute Monocytes 1.2 Absolute Eosinophils 0.1 Absolute Basophils 0.1 Sodium 141.2 Potassium 3.8 Chloride 105 Carbon Dioxide 30 Anion Gap 6 BUN 9 Creatinine 0.67 Est GFR ( Amer) > 60 Est GFR (Non-Af Amer) > 60 Glucose 146 H Calcium 9.1 Magnesium 1.5 L Impressions: Abdomen X-Ray 07/03/17 06:25 IMPRESSION: Small amount of gas in the stomach and the ascending colon. Otherwise, there is paucity of bowel gas. Chest X-Ray 07/04/17 07:00 IMPRESSION: Patchy airspace disease in the right lower lobe, atelectasis versus pneumonia Assessment & Plan - Diagnosis (1) Iron deficiency anemia Is this a current diagnosis for this admission?: Yes (2) Rectal bleeding Is this a current diagnosis for this admission?: Yes (3) Renal transplant recipient Is this a current diagnosis for this admission?: Yes (4) Anemia Is this a current diagnosis for this admission?: Yes (5) Chronic bilateral lower abdominal pain Is this a current diagnosis for this admission?: Yes Plan: Patient will be scheduled for colonoscopy Monday. She will be prepped for colonoscopy starting Monday evening - Time Time Spent with patient: 15-24 minutes - Plan Summary Plan Summary: For possible colonoscopy Monday. Bowel prep Monday
--- NOTE | 2017-07-08 17:59 | PDOC PROGRESS REPORT ---
Subjective Progress Note for:: 07/08/17 - Addendum to the progress notes her hemoglobin is 11.2 which has been stable. Physical Exam Vital Signs: Temp Pulse Resp BP Pulse Ox 98.5 F 84 18 145/68 H 91 L 07/08/17 00:10 07/08/17 14:00 07/08/17 00:10 07/08/17 00:10 07/08/17 00:10 Intake & Output 07/07/17 07/08/17 07/09/17 06:59 06:59 06:59 Intake Total 393 1678 Balance 393 1678 Weight 79.6 kg Results Laboratory Results: 07/08/17 04:36 07/08/17 04:36 07/08/17 07/08/17 04:36 04:36 WBC 8.7 RBC 4.86 Hgb 11.2 L Hct 35.6 L MCV 73 L MCH 23.1 L MCHC 31.6 L RDW 25.2 H Plt Count 257 Seg Neutrophils % 62.0 Lymphocytes % 21.0 Monocytes % 14.1 H Eosinophils % 1.6 Basophils % 1.3 Absolute Neutrophils 5.4 Absolute Lymphocytes 1.8 Absolute Monocytes 1.2 Absolute Eosinophils 0.1 Absolute Basophils 0.1 Sodium 141.2 Potassium 3.8 Chloride 105 Carbon Dioxide 30 Anion Gap 6 BUN 9 Creatinine 0.67 Est GFR ( Amer) > 60 Est GFR (Non-Af Amer) > 60 Glucose 146 H Calcium 9.1 Magnesium 1.5 L Impressions: Abdomen X-Ray 07/03/17 06:25 IMPRESSION: Small amount of gas in the stomach and the ascending colon. Otherwise, there is paucity of bowel gas. Chest X-Ray 07/04/17 07:00 IMPRESSION: Patchy airspace disease in the right lower lobe, atelectasis versus pneumonia Assessment & Plan - Diagnosis (1) Iron deficiency anemia Is this a current diagnosis for this admission?: Yes (2) Rectal bleeding Is this a current diagnosis for this admission?: Yes (3) Renal transplant recipient Is this a current diagnosis for this admission?: Yes (4) Anemia Is this a current diagnosis for this admission?: Yes (5) Chronic bilateral lower abdominal pain Is this a current diagnosis for this admission?: Yes
[2017-07-08] MEDS: CLONIDINE HCL 0.1 MG TABLET PO SCH (22:35)
[2017-07-08] MEDS: METOPROLOL TARTRATE 25 MG TABLET PO SCH (22:35)
[2017-07-08] MEDS: SIMVASTATIN 40 MG TABLET PO SCH (22:36)
[2017-07-09 05:20] LABS: HEMATOCRIT 34.3 % (36.0-47.0); HEMOGLOBIN 10.8 g/dL (12.0-15.5); HGB HCT DIFFERENCE -1.9; MEAN CORPUSCULAR HEMOGLOBIN 23.3 pg (27.0-33.4); MEAN CORPUSCULAR HGB CONC 31.5 g/dL (32.0-36.0); MEAN CORPUSCULAR VOLUME 74 fl (80-97); RED BLOOD COUNT 4.65 10^6/uL (3.72-5.28); RED CELL DISTRIBUTION WIDTH 25.5 % (11.5-14.0); WHITE BLOOD COUNT 9.4 10^3/uL (4.0-10.5)
[2017-07-09 05:25] LABS: ANION GAP 9 (5-19); BLOOD UREA NITROGEN 10 mg/dL (7-20); CALCIUM 9.2 mg/dL (8.4-10.2); CARBON DIOXIDE 29 mmol/L (22-30); CHLORIDE 104 mmol/L (98-107); CREATININE RESULT 0.58 mg/dL (0.52-1.25); GLUCOSE 176 mg/dL (75-110); POTASSIUM 3.8 mmol/L (3.6-5.0); SODIUM 142.3 mmol/L (137-145)
[2017-07-09] MEDS: METRONIDAZOLE 500 MG TABLET PO SCH ×3 (05:57→21:35)
[2017-07-09] MEDS: ACETAMINOPHEN 325 MG TABLET PO PRN (05:57)
[2017-07-09] MEDS: LEVOTHYROXINE SODIUM 0.025 MG TABLET PO SCH (08:48)
[2017-07-09] MEDS: PREDNISONE 5 MG TABLET PO SCH (08:50)
[2017-07-09] MEDS: INSULIN LISPRO 100 UNIT/ML 3 ML VIAL SUBCUT PRN ×3 (08:50→16:53)
[2017-07-09] MEDS: HUM INSULIN NPH/REG INSULIN HM 100 UNIT/1 ML 3 ML SUBCUT SCH ×2 (08:51→16:55)
[2017-07-09] MEDS: LEVOTHYROXINE SODIUM 0.1 MG TABLET PO SCH (08:52)
[2017-07-09] MEDS: DULOXETINE HCL 30 MG CAPSULE.DR PO SCH ×2 (10:05→21:35)
[2017-07-09] MEDS: DOCUSATE SODIUM 100 MG CAPSULE PO SCH ×2 (10:05→17:10)
[2017-07-09] MEDS: LANSOPRAZOLE 30 MG TAB.RAP.DR PO SCH (10:05)
[2017-07-09] MEDS: METHADONE HCL 10 MG TABLET PO SCH (10:06)
[2017-07-09] MEDS: MAGNESIUM OXIDE 400 MG TABLET PO SCH ×2 (10:06→17:10)
[2017-07-09] MEDS: CLONAZEPAM 1 MG TABLET PO SCH ×2 (10:06→17:10)
[2017-07-09] MEDS: ASPIRIN 81 MG TABLET, CHEWABLE PO SCH (10:07)
[2017-07-09] MEDS: CITALOPRAM HYDROBROMIDE 20 MG TABLET PO SCH (10:08)
[2017-07-09] MEDS: CHOLECALCIFEROL (D3) 1,000 UNIT TABLET PO SCH (10:08)
[2017-07-09] MEDS: POLYETHYLENE GLYCOL 3350 POWDER 17 GM/1 PACKET PO SCH ×2 (10:09→17:11)
[2017-07-09] MEDS: GLYCERIN (PEDIATRIC) SUPP.RECT PR SCH (10:09)
[2017-07-09] MEDS: TACROLIMUS ANHYDROUS 1 MG CAPSULE PO SCH ×2 (10:09→17:10)
--- NOTE | 2017-07-09 10:36 | PDOC PROGRESS REPORT ---
Subjective Progress Note for:: 07/09/17 Subjective:: He denies any abdominal pains Physical Exam Vital Signs: Temp Pulse Resp BP Pulse Ox 98.3 F 76 18 140/65 H 95 07/09/17 03:52 07/09/17 07:00 07/09/17 03:52 07/09/17 03:52 07/09/17 03:52 Intake & Output 07/08/17 07/09/17 07/10/17 06:59 06:59 06:59 Intake Total 1678 400 Balance 1678 400 Weight 79.6 kg 80.1 kg Exam: Abdomen nontender Results Laboratory Results: 07/09/17 04:33 07/09/17 04:33 07/09/17 07/09/17 04:33 04:33 WBC 9.4 RBC 4.65 Hgb 10.8 L Hct 34.3 L MCV 74 L MCH 23.3 L MCHC 31.5 L RDW 25.5 H Plt Count 275 Sodium 142.3 Potassium 3.8 Chloride 104 Carbon Dioxide 29 Anion Gap 9 BUN 10 Creatinine 0.58 Est GFR ( Amer) > 60 Est GFR (Non-Af Amer) > 60 Glucose 176 H Calcium 9.2 Magnesium 2.0 Impressions: Abdomen X-Ray 07/03/17 06:25 IMPRESSION: Small amount of gas in the stomach and the ascending colon. Otherwise, there is paucity of bowel gas. Chest X-Ray 07/04/17 07:00 IMPRESSION: Patchy airspace disease in the right lower lobe, atelectasis versus pneumonia Assessment & Plan - Diagnosis (1) Iron deficiency anemia Is this a current diagnosis for this admission?: Yes (2) Rectal bleeding Is this a current diagnosis for this admission?: Yes (3) Renal transplant recipient Is this a current diagnosis for this admission?: Yes (4) Anemia Is this a current diagnosis for this admission?: Yes (5) Chronic bilateral lower abdominal pain Is this a current diagnosis for this admission?: Yes - Time Time Spent with patient: Less than 15 minutes - Plan Summary Plan Summary: Bowel prep ordered Possible colonoscopy tomorrow morning by Dr. García
[2017-07-09] MEDS: CEFTRIAXONE 2 GM/D5W RTU 2 GM/50 ML RTUPB IV SCH (12:44)
--- NOTE | 2017-07-09 14:30 | PDOC PROGRESS REPORT ---
Subjective Progress Note for:: 07/09/17 Subjective:: Pt states that she is still having some blood in her stool. Pt states that otherwise she feels better. Physical Exam Vital Signs: Temp Pulse Resp BP Pulse Ox 98.3 F 76 18 140/65 H 95 07/09/17 03:52 07/09/17 07:00 07/09/17 03:52 07/09/17 03:52 07/09/17 03:52 Intake & Output 07/08/17 07/09/17 07/10/17 06:59 06:59 06:59 Intake Total 1678 400 Balance 1678 400 Weight 79.6 kg 80.1 kg General appearance: PRESENT: no acute distress, well-developed, well-nourished Head exam: PRESENT: atraumatic, normocephalic Eye exam: PRESENT: conjunctiva pink, EOMI. ABSENT: scleral icterus Ear exam: PRESENT: normal external ear exam Mouth exam: PRESENT: moist, tongue midline Neck exam: ABSENT: carotid bruit, JVD, lymphadenopathy, thyromegaly Respiratory exam: PRESENT: clear to auscultation grayson. ABSENT: rales, rhonchi, wheezes Cardiovascular exam: PRESENT: RRR. ABSENT: diastolic murmur, rubs, systolic murmur Pulses: PRESENT: normal dorsalis pedis pul Vascular exam: PRESENT: normal capillary refill GI/Abdominal exam: PRESENT: normal bowel sounds, other - diffuse tenderness to palpation Rectal exam: PRESENT: deferred Extremities exam: PRESENT: full ROM. ABSENT: calf tenderness, clubbing, pedal edema Neurological exam: PRESENT: alert, awake, oriented to person, oriented to place , oriented to time, oriented to situation, CN II-XII grossly intact. ABSENT: motor sensory deficit Psychiatric exam: PRESENT: appropriate affect, normal mood. ABSENT: homicidal ideation, suicidal ideation Skin exam: PRESENT: dry, intact, warm. ABSENT: cyanosis, rash Results Laboratory Results: 07/09/17 04:33 07/09/17 04:33 07/09/17 07/09/17 04:33 04:33 WBC 9.4 RBC 4.65 Hgb 10.8 L Hct 34.3 L MCV 74 L MCH 23.3 L MCHC 31.5 L RDW 25.5 H Plt Count 275 Sodium 142.3 Potassium 3.8 Chloride 104 Carbon Dioxide 29 Anion Gap 9 BUN 10 Creatinine 0.58 Est GFR ( Amer) > 60 Est GFR (Non-Af Amer) > 60 Glucose 176 H Calcium 9.2 Magnesium 2.0 Impressions: Abdomen X-Ray 07/03/17 06:25 IMPRESSION: Small amount of gas in the stomach and the ascending colon. Otherwise, there is paucity of bowel gas. Chest X-Ray 07/04/17 07:00 IMPRESSION: Patchy airspace disease in the right lower lobe, atelectasis versus pneumonia Assessment & Plan - Diagnosis (1) Aspiration pneumonia Qualifiers: Aspiration pneumonia type: due to vomit Laterality: right Lung location: lower lobe of lung Qualified Code(s): J69.0 - Pneumonitis due to inhalation of food and vomit Is this a current diagnosis for this admission?: Yes Plan: Suspect gram-negative organism Right Lower Lobe: Rocephin and Flagyl 03/08. (2) Rectal bleeding Is this a current diagnosis for this admission?: Yes Plan: C-scope scheduled for tomorrow. (3) Hypomagnesemia Is this a current diagnosis for this admission?: Yes Plan: Resolved. (4) Potassium (K) deficiency Is this a current diagnosis for this admission?: Yes Plan: Resolved. (5) Diabetic ketoacidosis associated with type 1 diabetes mellitus Qualifiers: Diabetes mellitus complication detail: without coma Qualified Code(s): E10.10 - Type 1 diabetes mellitus with ketoacidosis without coma Is this a current diagnosis for this admission?: Yes Plan: Resolved. (6) SIRS (systemic inflammatory response syndrome) Is this a current diagnosis for this admission?: Yes Plan: Resolved (7) Renal transplant recipient Is this a current diagnosis for this admission?: Yes Plan: Will continue home medications (8) Constipation Is this a current diagnosis for this admission?: Yes Plan: Resolved. (9) Emesis Is this a current diagnosis for this admission?: Yes Plan: Resolved. (10) Anemia Is this a current diagnosis for this admission?: Yes Plan: S/P 2 units of PRBCs. Hemoglobin remaining stable. (11) Chronic bilateral lower abdominal pain Is this a current diagnosis for this admission?: Yes Plan: EGD normal. Pt scheduled for C-scope tomorrow. (12) DVT prophylaxis Is this a current diagnosis for this admission?: Yes Plan: scds - Time Time Spent with patient: 15-24 minutes - Inpatient Certification Medical Necessity: Risk of Diagnosis Which Will Require Inpatient Eval/Care/ Monitoring
[2017-07-09] MEDS ORDERED: MAGNESIUM CITRATE 296 ML BOTTLE PO ONE (18:00)
[2017-07-09] MEDS ORDERED: BISACODYL 5 MG TABEC PO ONE (20:00)
[2017-07-09] MEDS: CLONIDINE HCL 0.1 MG TABLET PO SCH (21:35)
[2017-07-09] MEDS: METOPROLOL TARTRATE 25 MG TABLET PO SCH (21:35)
[2017-07-09] MEDS: SIMVASTATIN 40 MG TABLET PO SCH (21:35)
[2017-07-09] MEDS: NORMAL SALINE 1000 ML 1,000 ML IV PRN (22:14)
[2017-07-10] MEDS: ACETAMINOPHEN 325 MG TABLET PO PRN (01:52)
[2017-07-10] MEDS: METRONIDAZOLE 500 MG TABLET PO SCH (05:27)
[2017-07-10 05:41] LABS: ABSOLUTE BASOPHILS # (AUTO) 0.2 10^3/uL (0.0-0.2); ABSOLUTE EOSINOPHILS # (AUTO) 0.1 10^3/uL (0.0-0.6); ABSOLUTE MONOCYTES (AUTO) 1.1 10^3/uL (0.1-1.4); ABSOLUTE NEUT (AUTO) 6.1 10^3/uL (1.7-8.2); ANION GAP 7 (5-19); BASOPHILS % (AUTO) 1.7 % (0-2); BLOOD UREA NITROGEN 8 mg/dL (7-20); CALCIUM 8.9 mg/dL (8.4-10.2); CARBON DIOXIDE 29 mmol/L (22-30); CHLORIDE 107 mmol/L (98-107); CREATININE RESULT 0.63 mg/dL (0.52-1.25); EOSINOPHILS % (AUTO) 1.1 % (0-6); GLUCOSE 73 mg/dL (75-110); HEMATOCRIT 33.6 % (36.0-47.0); HEMOGLOBIN 10.6 g/dL (12.0-15.5); HGB HCT DIFFERENCE -1.8; LYMPHOCYTES % (AUTO) 21.4 % (13-45); MEAN CORPUSCULAR HGB CONC 31.6 g/dL (32.0-36.0); MEAN CORPUSCULAR VOLUME 73 fl (80-97); MONOCYTES % (AUTO) 11.5 % (3-13); POTASSIUM 4.1 mmol/L (3.6-5.0); RED CELL DISTRIBUTION WIDTH 26.8 % (11.5-14.0); SEGMENTED NEUTROPHILS % (AUTO) 64.3 % (42-78); WHITE BLOOD COUNT 9.5 10^3/uL (4.0-10.5)
[2017-07-10 06:28] LABS: HYPOCHROMASIA 2+
[2017-07-10 06:29] LABS: ACANTHOCYTES SLIGHT; ANISOCYTOSIS 3+; BURR CELLS SLIGHT; MICROCYTOSIS 1+; OVALOCYTES 1+; POIKILOCYTOSIS 2+; TARGET CELLS SLIGHT
[2017-07-10] MEDS: HUM INSULIN NPH/REG INSULIN HM 100 UNIT/1 ML 3 ML SUBCUT SCH ×2 (08:01→17:12)
[2017-07-10] MEDS: NORMAL SALINE 1000 ML 1,000 ML IV PRN ×2 (08:27→15:19)
--- NOTE | 2017-07-10 09:30 | PDOC PROGRESS REPORT ---
Subjective Progress Note for:: 07/10/17 Subjective:: Patient states she has taken the bowel prep and her stools are clear. According the patient last colonoscopy was , during her workup for renal transplantation. Reportedly she had no findings on lower endoscopy. Patient underwent upper endoscopy last week by Dr. Mccollum without any pathologic findings. Physical Exam Vital Signs: Temp Pulse Resp BP Pulse Ox 98.2 F 80 16 146/67 H 94 07/10/17 07:15 07/10/17 07:15 07/10/17 07:15 07/10/17 07:15 07/10/17 08:20 Intake & Output 07/09/17 07/10/17 07/11/17 06:59 06:59 06:59 Intake Total 400 1516 Balance 400 1516 Weight 80.1 kg 78.9 kg General appearance: PRESENT: no acute distress GI/Abdominal exam: PRESENT: other - Extensive bruising, from insulin injections ; multiple scars consistent with previous surgery Results Laboratory Results: 07/10/17 04:33 07/10/17 04:33 07/10/17 07/10/17 04:33 04:33 WBC 9.5 RBC 4.60 Hgb 10.6 L Hct 33.6 L MCV 73 L MCH 23.0 L MCHC 31.6 L RDW 26.8 H Plt Count 211 Seg Neutrophils % 64.3 Lymphocytes % 21.4 Monocytes % 11.5 Eosinophils % 1.1 Basophils % 1.7 Absolute Neutrophils 6.1 Absolute Lymphocytes 2.0 Absolute Monocytes 1.1 Absolute Eosinophils 0.1 Absolute Basophils 0.2 Sodium 143.0 Potassium 4.1 Chloride 107 Carbon Dioxide 29 Anion Gap 7 BUN 8 Creatinine 0.63 Est GFR ( Amer) > 60 Est GFR (Non-Af Amer) > 60 Glucose 73 L Calcium 8.9 Impressions: Abdomen X-Ray 07/03/17 06:25 IMPRESSION: Small amount of gas in the stomach and the ascending colon. Otherwise, there is paucity of bowel gas. Chest X-Ray 07/04/17 07:00 IMPRESSION: Patchy airspace disease in the right lower lobe, atelectasis versus pneumonia Assessment & Plan - Diagnosis (1) Rectal bleeding Is this a current diagnosis for this admission?: Yes Plan: Rectal bleeding apparently abated; patient status post upper endoscopy with no pathologic findings; now having had bowel prep, [place] lower endoscopy Plan: 1. Proceed with colonoscopy later today, conscious sedation, 1 hour, possible polypectomy, possible biopsies. 2. We will ensure her bowel prep is sufficient
[2017-07-10] MEDS ORDERED: NALOXONE HCL INJ/PF 0.4 MG/1 ML SDV ONE (10:01)
[2017-07-10] MEDS ORDERED: GLYCOPYRROLATE INJ 0.4 MG/2 ML VIAL ONE (10:01)
[2017-07-10] MEDS ORDERED: ONDANSETRON HCL INJ/PF 4 MG/2 ML SDV ONE (10:01)
[2017-07-10] MEDS ORDERED: EPINEPHRINE INJ 1 MG/10 ML DISP.SYRIN ONE (10:02)
[2017-07-10] MEDS ORDERED: GLUCAGON,HUMAN RECOMB 1 MG INJ ONE (10:02)
[2017-07-10] MEDS ORDERED: FLUMAZENIL INJ 0.5 MG/5 ML VIAL ONE (10:02)
[2017-07-10] MEDS: MIDAZOLAM 2 MG/2 ML INJ ONE ×4 (10:30→11:00)
[2017-07-10] MEDS: FENTANYL CITRATE INJ/PF 100 MCG/2 ML AMPUL ONE ×2 (10:32→10:45)
--- NOTE | 2017-07-10 11:41 | Operative Report ---
Operative Report DATE OF SURGERY: 07/04/17 PREOPERATIVE DIAGNOSIS: 1. Gastrointestinal bleeding POSTOPERATIVE DIAGNOSIS: 1. No colonic evidence of gastrointestinal bleeding or graft. 2. Incomplete bowel prep OPERATION: Complete colonoscopy to cecum. SURGEON: DENNIS KNIGHT ANESTHESIA: Moderate Sedation TISSUE REMOVED OR ALTERED: None COMPLICATIONS: none ESTIMATED BLOOD LOSS: Scant INTRAOPERATIVE FINDINGS: Below PROCEDURE: Obtaining informed consent the patient was taken from the preoperative holding area to the main endoscopy suite where monitoring devices were attached to the patient. Plan and surgical timeout were conducted The patient was placed in the left lateral decubitus position with knees to chest. A perianal examination was performed. There was no visible or palpable anorectal pathology. Patient did have minimal anal excoriation. Sphincter tone was felt to be normal. The flexible adult colonoscope was advanced through the anal rectal canal, all the way to the cecum. Utilization of the cecum was achieved and the ileocecal valve, the appendiceal orifice and transillumination of the anterior abdominal wall. This was a fair colonoscopic evaluation due to the substantial amount of liquid and particulate fecal matter in the right colon, particularly the cecum. A significant amount of time was spent irrigating and suctioning out the residual fecal matter. The colonoscope was withdrawn slowly and methodically checked and the mucosa carefully. There was no evidence of tumor, stricture, bleeding or polyp. No evidence for acute GI bleed could be identified. There was no evidence of diverticuloses. The scope was slowly withdrawn through the anal rectal canal. Complete visualization of the rectum was achieved with photodocumentation. Recent did tolerate the procedure well however had some discomfort on her left side, likely exacerbation of chronic pain. The scope was withdrawn to the patient's anus. The patient tolerated the procedure well and was taken to the recovery area in stable condition.
--- NOTE | 2017-07-10 12:21 | PDOC PROGRESS REPORT ---
Physical Exam Vital Signs: Temp Pulse Resp BP Pulse Ox 98.2 F 91 27 H 145/65 H 94 07/10/17 07:15 07/10/17 11:35 07/10/17 11:35 07/10/17 11:35 07/10/17 11:35 Intake & Output 07/09/17 07/10/17 07/11/17 06:59 06:59 06:59 Intake Total 400 1516 400 Balance 400 1516 400 Weight 80.1 kg 78.9 kg Results Laboratory Results: 07/10/17 04:33 07/10/17 04:33 07/10/17 07/10/17 04:33 04:33 WBC 9.5 RBC 4.60 Hgb 10.6 L Hct 33.6 L MCV 73 L MCH 23.0 L MCHC 31.6 L RDW 26.8 H Plt Count 211 Seg Neutrophils % 64.3 Lymphocytes % 21.4 Monocytes % 11.5 Eosinophils % 1.1 Basophils % 1.7 Absolute Neutrophils 6.1 Absolute Lymphocytes 2.0 Absolute Monocytes 1.1 Absolute Eosinophils 0.1 Absolute Basophils 0.2 Sodium 143.0 Potassium 4.1 Chloride 107 Carbon Dioxide 29 Anion Gap 7 BUN 8 Creatinine 0.63 Est GFR ( Amer) > 60 Est GFR (Non-Af Amer) > 60 Glucose 73 L Calcium 8.9 Impressions: Abdomen X-Ray 07/03/17 06:25 IMPRESSION: Small amount of gas in the stomach and the ascending colon. Otherwise, there is paucity of bowel gas. Chest X-Ray 07/04/17 07:00 IMPRESSION: Patchy airspace disease in the right lower lobe, atelectasis versus pneumonia Assessment & Plan - Diagnosis (1) Candidal dermatitis Is this a current diagnosis for this admission?: Yes Plan: We will place patient on Diflucan 150 mg p.o. daily for 5 days. Will write for nystatin powder twice daily (2) Aspiration pneumonia Qualifiers: Aspiration pneumonia type: due to vomit Laterality: right Lung location: lower lobe of lung Qualified Code(s): J69.0 - Pneumonitis due to inhalation of food and vomit Is this a current diagnosis for this admission?: Yes Plan: Suspect gram-negative organism Right Lower Lobe: She has completed 7 days of Rocephin and Flagyl. Will discontinue antibiotics.. (3) Rectal bleeding Is this a current diagnosis for this admission?: Yes Plan: Status post colonoscopy: colonoscopy did not show any evidence of acute bleeding. (4) Hypomagnesemia Is this a current diagnosis for this admission?: Yes Plan: Resolved. (5) Potassium (K) deficiency Is this a current diagnosis for this admission?: Yes Plan: Resolved. (6) Diabetic ketoacidosis associated with type 1 diabetes mellitus Qualifiers: Diabetes mellitus complication detail: without coma Qualified Code(s): E10.10 - Type 1 diabetes mellitus with ketoacidosis without coma Is this a current diagnosis for this admission?: Yes Plan: Resolved. (7) SIRS (systemic inflammatory response syndrome) Is this a current diagnosis for this admission?: Yes Plan: Resolved (8) Renal transplant recipient Is this a current diagnosis for this admission?: Yes Plan: Will continue home medications (9) Constipation Is this a current diagnosis for this admission?: Yes Plan: Resolved. (10) Hyperglycemia Is this a current diagnosis for this admission?: Yes Plan: Patient was hypoglycemic this morning therefore insulin was held. Patient will resume scheduled insulin regimen. (11) Emesis Is this a current diagnosis for this admission?: Yes Plan: Resolved. (12) Anemia Is this a current diagnosis for this admission?: Yes Plan: S/P 2 units of PRBCs. Hemoglobin remaining stable. (13) Chronic bilateral lower abdominal pain Is this a current diagnosis for this admission?: Yes Plan: EGD normal. Patient's colonoscopy demonstrated no evidence of acute bleed (14) DVT prophylaxis Is this a current diagnosis for this admission?: Yes Plan: scds
[2017-07-10] MEDS ORDERED: FLUCONAZOLE 100 MG TABLET PO ONE (12:45)
[2017-07-10] MEDS: INSULIN LISPRO 100 UNIT/ML 3 ML VIAL SUBCUT PRN ×3 (13:09→23:30)
[2017-07-10] MEDS: LEVOTHYROXINE SODIUM 0.025 MG TABLET PO SCH (13:10)
[2017-07-10] MEDS: DULOXETINE HCL 30 MG CAPSULE.DR PO SCH ×2 (13:12→21:15)
[2017-07-10] MEDS: ASPIRIN 81 MG TABLET, CHEWABLE PO SCH (13:12)
[2017-07-10] MEDS: CITALOPRAM HYDROBROMIDE 20 MG TABLET PO SCH (13:12)
[2017-07-10] MEDS: MAGNESIUM OXIDE 400 MG TABLET PO SCH ×2 (13:12→17:13)
[2017-07-10] MEDS: PREDNISONE 5 MG TABLET PO SCH (13:13)
[2017-07-10] MEDS: LEVOTHYROXINE SODIUM 0.1 MG TABLET PO SCH (13:13)
[2017-07-10] MEDS: CHOLECALCIFEROL (D3) 1,000 UNIT TABLET PO SCH (13:13)
[2017-07-10] MEDS: TACROLIMUS ANHYDROUS 1 MG CAPSULE PO SCH ×2 (13:14→17:14)
[2017-07-10] MEDS: LANSOPRAZOLE 30 MG TAB.RAP.DR PO SCH (13:14)
[2017-07-10] MEDS: GLYCERIN (PEDIATRIC) SUPP.RECT PR SCH (13:16)
[2017-07-10] MEDS: POLYETHYLENE GLYCOL 3350 POWDER 17 GM/1 PACKET PO SCH ×2 (13:16→17:02)
[2017-07-10] MEDS: DOCUSATE SODIUM 100 MG CAPSULE PO SCH ×2 (13:16→17:02)
[2017-07-10] MEDS: NYSTATIN TOPICAL POWDER 15 GM TP SCH (17:14)
[2017-07-10] MEDS: PROMETHAZINE HCL 25 MG TABLET PO PRN (19:14)
[2017-07-10] MEDS: CLONIDINE HCL 0.1 MG TABLET PO SCH (21:15)
[2017-07-10] MEDS: METOPROLOL TARTRATE 25 MG TABLET PO SCH (21:16)
[2017-07-10] MEDS: SIMVASTATIN 40 MG TABLET PO SCH (21:17)
[2017-07-11] MEDS: NORMAL SALINE 1000 ML 1,000 ML IV PRN ×2 (04:55→11:02)
[2017-07-11] MEDS: CHOLECALCIFEROL (D3) 1,000 UNIT TABLET PO SCH (10:07)
[2017-07-11] MEDS: HUM INSULIN NPH/REG INSULIN HM 100 UNIT/1 ML 3 ML SUBCUT SCH ×2 (10:07→18:06)
[2017-07-11] MEDS: LEVOTHYROXINE SODIUM 0.1 MG TABLET PO SCH (10:08)
[2017-07-11] MEDS: FLUCONAZOLE 100 MG TABLET PO SCH (10:08)
[2017-07-11] MEDS: LEVOTHYROXINE SODIUM 0.025 MG TABLET PO SCH (10:08)
[2017-07-11] MEDS: DULOXETINE HCL 30 MG CAPSULE.DR PO SCH ×2 (10:09→21:35)
[2017-07-11] MEDS: LANSOPRAZOLE 30 MG TAB.RAP.DR PO SCH (10:10)
[2017-07-11] MEDS: MAGNESIUM OXIDE 400 MG TABLET PO SCH ×2 (10:10→18:07)
[2017-07-11] MEDS: PREDNISONE 5 MG TABLET PO SCH (10:10)
[2017-07-11] MEDS: DOCUSATE SODIUM 100 MG CAPSULE PO SCH ×2 (10:10→18:14)
[2017-07-11] MEDS: NYSTATIN TOPICAL POWDER 15 GM TP SCH ×2 (10:11→18:08)
[2017-07-11] MEDS: ASPIRIN 81 MG TABLET, CHEWABLE PO SCH (10:11)
[2017-07-11] MEDS: GLYCERIN (PEDIATRIC) SUPP.RECT PR SCH (10:17)
[2017-07-11] MEDS: POLYETHYLENE GLYCOL 3350 POWDER 17 GM/1 PACKET PO SCH ×2 (10:17→18:02)
[2017-07-11] MEDS: CITALOPRAM HYDROBROMIDE 20 MG TABLET PO SCH (10:17)
[2017-07-11] MEDS: TACROLIMUS ANHYDROUS 1 MG CAPSULE PO SCH ×2 (10:38→18:07)
[2017-07-11] MEDS: INSULIN LISPRO 100 UNIT/ML 3 ML VIAL SUBCUT PRN ×3 (12:07→22:31)
--- NOTE | 2017-07-11 15:01 | PDOC PROGRESS REPORT ---
Subjective Progress Note for:: 07/11/17 Subjective:: She presented with DKA encephalopathy now resolved. Patient also with acute GI bleed requiring 2 units of blood however negative colonoscopy. Do note that patient had incomplete prep. Patient hemoglobin has been stable. Patient states she is doing well however she is weak and would like to go to rehab and have home health and physical therapy. Patient states she has not seen physical therapy since being here. She states she is overall doing well. Physical Exam Vital Signs: Temp Pulse Resp BP Pulse Ox 98.5 F 94 22 H 153/60 H 97 07/11/17 12:01 07/11/17 14:00 07/11/17 12:01 07/11/17 12:01 07/11/17 12:01 Intake & Output 07/10/17 07/11/17 07/12/17 06:59 06:59 06:59 Intake Total 1516 4146 240 Balance 1516 4146 240 Weight 78.9 kg 78.5 kg General appearance: PRESENT: no acute distress, disheveled Head exam: PRESENT: normocephalic Eye exam: PRESENT: EOMI Mouth exam: PRESENT: moist Teeth exam: PRESENT: other - Discolored teeth Neck exam: PRESENT: full ROM Respiratory exam: PRESENT: other - Crackles heard at lung bases otherwise good air movement. ABSENT: tachypnea, unlabored, wheezes Cardiovascular exam: PRESENT: RRR, +S1, +S2 GI/Abdominal exam: PRESENT: normal bowel sounds, soft. 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 Otherwise, there is paucity of bowel gas. Chest X-Ray 07/04/17 07:00 IMPRESSION: Patchy airspace disease in the right lower lobe, atelectasis versus pneumonia Assessment & Plan - Diagnosis (1) Diabetic ketoacidosis associated with type 1 diabetes mellitus Qualifiers: Diabetes mellitus complication detail: without coma Qualified Code(s): E10.10 - Type 1 diabetes mellitus with ketoacidosis without coma Is this a current diagnosis for this admission?: Yes Plan: Resolved. Patient is normally on insulin pump. Patient states that she may consider going back to subcu insulin as she is better able to manage that. Patient states she would discuss that with her endocrinology in [place] upon discharge. (2) Acute blood loss anemia Is this a current diagnosis for this admission?: Yes Plan: Patient hemoglobin did drop during his hospitalization for which she required 2 units of packed RBCs. There was evidence of bleeding however on EGD and colonoscopy there was no obvious signs of bleeding. Patient hemoglobin has been stable. (3) Aspiration pneumonia Qualifiers: Aspiration pneumonia type: due to vomit Laterality: right Lung location: lower lobe of lung Qualified Code(s): J69.0 - Pneumonitis due to inhalation of food and vomit Is this a current diagnosis for this admission?: Yes Plan: She completed treatment with Rocephin and Flagyl. Patient still has intermittent productive cough but no signs of respiratory distress. (4) Candidal dermatitis Is this a current diagnosis for this admission?: Yes Plan: She currently being treated with Diflucan and nystatin powder. (5) Emesis Is this a current diagnosis for this admission?: Yes Plan: Soft most likely due to her gastroparesis. (6) Hypomagnesemia Is this a current diagnosis for this admission?: Yes Plan: Resolved. (7) Potassium (K) deficiency Is this a current diagnosis for this admission?: Yes Plan: Resolved. (8) Rectal bleeding Is this a current diagnosis for this admission?: Yes Plan: Patient underwent colonoscopy which was negative for any signs of bleeding however patient did have incomplete prep. Patient was transfused 2 units on admission and hemoglobin has been stable. Patient hemoglobin is now 10.6 but was as low as 7.3. (9) Renal transplant recipient Is this a current diagnosis for this admission?: Yes Plan: Continue home medications (10) Chronic bilateral lower abdominal pain Is this a current diagnosis for this admission?: Yes Plan: Possibly due to gastroparesis, ileus and/or constipation from chronic opiates use. Patient did undergo colonoscopy in EGD that did not show any obvious etiology of her abdominal pain. Patient is continued on her methadone. (11) DVT prophylaxis Is this a current diagnosis for this admission?: Yes (12) Constipation Is this a current diagnosis for this admission?: Yes Plan: Possibly secondary to chronic opiate use. Patient is on methadone and Dilaudid. Patient states that she no longer wants to continue to Dilaudid however would like to stay on the methadone as it helps her gastroparesis. She states she will discuss this with her pain management physician. - Time Time Spent with patient: 15-24 minutes Medications reviewed and adjusted accordingly: Yes Anticipated discharge: SNF - Currently awaiting placement at SNF for rehabilitation. Will consult PT OT in the meantime work with patient.
[2017-07-11 15:12] LABS: HEMATOCRIT 35.5 % (36.0-47.0); HGB HCT DIFFERENCE -2.5; MEAN CORPUSCULAR HEMOGLOBIN 23.1 pg (27.0-33.4); MEAN CORPUSCULAR VOLUME 74 fl (80-97); RED BLOOD COUNT 4.78 10^6/uL (3.72-5.28); RED CELL DISTRIBUTION WIDTH 26.4 % (11.5-14.0); WHITE BLOOD COUNT 9.9 10^3/uL (4.0-10.5)
[2017-07-11 15:36] LABS: ANISOCYTOSIS 3+; BASOPHILS % (MANUAL) 0 % (0-2); EOSINOPHILS % (MANUAL) 0 % (0-6); HYPOCHROMASIA SLIGHT; LYMPHOCYTES % (MANUAL) 8 % (13-45); MICROCYTOSIS 1+; POLYCHROMASIA SLIGHT; TOTAL CELLS COUNTED 100; TOXIC GRANULATION SLIGHT; TOXIC VACUOLATION PRESENT
[2017-07-11] MEDS: METOPROLOL TARTRATE 25 MG TABLET PO SCH (21:33)
[2017-07-11] MEDS: CLONIDINE HCL 0.1 MG TABLET PO SCH (21:34)
[2017-07-11] MEDS: SIMVASTATIN 40 MG TABLET PO SCH (21:34)
[2017-07-12 05:27] LABS: ANION GAP 10 (5-19); BLOOD UREA NITROGEN 9 mg/dL (7-20); CALCIUM 9.1 mg/dL (8.4-10.2); CARBON DIOXIDE 29 mmol/L (22-30); CHLORIDE 105 mmol/L (98-107); CREATININE RESULT 0.62 mg/dL (0.52-1.25); GLUCOSE 116 mg/dL (75-110); MAGNESIUM 1.6 mg/dL (1.6-2.3); POTASSIUM 5.2 mmol/L (3.6-5.0); SODIUM 143.7 mmol/L (137-145)
[2017-07-12] MEDS: ACETAMINOPHEN 325 MG TABLET PO PRN ×2 (06:44→21:55)
[2017-07-12] MEDS: LEVOTHYROXINE SODIUM 0.025 MG TABLET PO SCH (08:29)
[2017-07-12] MEDS: LEVOTHYROXINE SODIUM 0.1 MG TABLET PO SCH (08:29)
[2017-07-12] MEDS: PREDNISONE 5 MG TABLET PO SCH (08:29)
[2017-07-12] MEDS: HUM INSULIN NPH/REG INSULIN HM 100 UNIT/1 ML 3 ML SUBCUT SCH ×2 (08:30→15:29)
[2017-07-12] MEDS: PROMETHAZINE HCL INJ 25 MG/1 ML VIAL IV PRN (08:43)
[2017-07-12] MEDS: DULOXETINE HCL 30 MG CAPSULE.DR PO SCH ×2 (10:09→21:20)
[2017-07-12] MEDS: ASPIRIN 81 MG TABLET, CHEWABLE PO SCH (10:09)
[2017-07-12] MEDS: FLUCONAZOLE 100 MG TABLET PO SCH (10:09)
[2017-07-12] MEDS: CHOLECALCIFEROL (D3) 1,000 UNIT TABLET PO SCH (10:10)
[2017-07-12] MEDS: CITALOPRAM HYDROBROMIDE 20 MG TABLET PO SCH (10:13)
[2017-07-12] MEDS: DOCUSATE SODIUM 100 MG CAPSULE PO SCH ×2 (10:13→19:00)
[2017-07-12] MEDS: MAGNESIUM OXIDE 400 MG TABLET PO SCH ×2 (10:13→19:01)
[2017-07-12] MEDS: LANSOPRAZOLE 30 MG TAB.RAP.DR PO SCH (10:13)
[2017-07-12] MEDS: TACROLIMUS ANHYDROUS 1 MG CAPSULE PO SCH ×2 (10:14→19:01)
[2017-07-12] MEDS: NYSTATIN TOPICAL POWDER 15 GM TP SCH ×2 (10:22→19:02)
[2017-07-12] MEDS: GLYCERIN (PEDIATRIC) SUPP.RECT PR SCH (10:22)
[2017-07-12] MEDS: POLYETHYLENE GLYCOL 3350 POWDER 17 GM/1 PACKET PO SCH (10:22)
[2017-07-12] MEDS: INSULIN LISPRO 100 UNIT/ML 3 ML VIAL SUBCUT PRN ×3 (12:13→22:02)
--- NOTE | 2017-07-12 17:21 | PDOC PROGRESS REPORT ---
Subjective Progress Note for:: 07/12/17 Subjective:: She presented with DKA encephalopathy now resolved. Patient also with acute GI bleed requiring 2 units of blood however negative colonoscopy. Patient work with physical therapy today. Patient states she was happy to do so. Patient states she is having a pretty good day. Patient states she did not take her MiraLAX or docusate. Patient states that she is having normal stools now and will request for more aggressive medication if she becomes constipated. Patient is happy with taking Colace for now. Patient is looking forward to going to rehab when she is excepted somewhere. Physical Exam Vital Signs: Temp Pulse Resp BP Pulse Ox 98.1 F 101 H 20 148/77 H 97 07/12/17 11:57 07/12/17 14:00 07/12/17 11:57 07/12/17 11:57 07/12/17 11:57 Intake & Output 07/11/17 07/12/17 07/13/17 06:59 06:59 06:59 Intake Total 4146 3718 480 Output Total 1999 Balance 4146 1108 480 Weight 78.5 kg 79.4 kg General appearance: PRESENT: no acute distress, disheveled Head exam: PRESENT: normocephalic Eye exam: PRESENT: EOMI Mouth exam: PRESENT: moist Neck exam: PRESENT: full ROM Respiratory exam: PRESENT: clear to auscultation grayson, unlabored. ABSENT: wheezes Cardiovascular exam: PRESENT: RRR, +S1, +S2 GI/Abdominal exam: PRESENT: normal bowel sounds, soft. ABSENT: tenderness Rectal exam: PRESENT: deferred Extremities exam: ABSENT: pedal edema Musculoskeletal exam: PRESENT: other - Thin arms and legs. ABSENT: tenderness Neurological exam: PRESENT: CN II-XII grossly intact - Vision loss Psychiatric exam: PRESENT: normal mood Skin exam: PRESENT: intact, pallor, warm Results Laboratory Results: 07/11/17 15:02 07/12/17 04:10 07/12/17 04:10 Sodium 143.7 Potassium 5.2 H Chloride 105 Carbon Dioxide 29 Anion Gap 10 BUN 9 Creatinine 0.62 Est GFR ( Amer) > 60 Est GFR (Non-Af Amer) > 60 Glucose 116 H Calcium 9.1 Magnesium 1.6 Impressions: Abdomen X-Ray 07/03/17 06:25 IMPRESSION: Small amount of gas in the stomach and the ascending colon. Otherwise, there is paucity of bowel gas. Chest X-Ray 07/04/17 07:00 IMPRESSION: Patchy airspace disease in the right lower lobe, atelectasis versus pneumonia Assessment & Plan - Diagnosis (1) Diabetic ketoacidosis associated with type 1 diabetes mellitus Qualifiers: Diabetes mellitus complication detail: without coma Qualified Code(s): E10.10 - Type 1 diabetes mellitus with ketoacidosis without coma Is this a current diagnosis for this admission?: Yes Plan: Resolved. Patient is normally on insulin pump. Patient states that [facility] as she is better able to manage that. Patient states she would discuss that with her endocrinology in [place] upon discharge. Patient insulin is being adjusted while in the hospital as she is having low glucoses in the 200s 300s up to 400s. Will change her to 20 units of NPH regular insulin twice daily along with sliding scale insulin. (2) Acute blood loss anemia Is this a current diagnosis for this admission?: Yes Plan: Patient hemoglobin did drop during his hospitalization for which she required 2 units of packed RBCs. There was evidence of bleeding however on EGD and colonoscopy there was no obvious signs of bleeding. Patient hemoglobin has been stable. (3) Aspiration pneumonia Qualifiers: Aspiration pneumonia type: due to vomit Laterality: right Lung location: lower lobe of lung Qualified Code(s): J69.0 - Pneumonitis due to inhalation of food and vomit Is this a current diagnosis for this admission?: Yes Plan: She completed treatment with Rocephin and Flagyl. Patient still has intermittent productive cough but no signs of respiratory distress. (4) Candidal dermatitis Is this a current diagnosis for this admission?: Yes Plan: She currently being treated with Diflucan and nystatin powder. (5) Emesis Is this a current diagnosis for this admission?: Yes Plan: Resolved. Most likely due to her gastroparesis. (6) Hypomagnesemia Is this a current diagnosis for this admission?: Yes Plan: Resolved. (7) Potassium (K) deficiency Is this a current diagnosis for this admission?: Yes Plan: Resolved. (8) Rectal bleeding Is this a current diagnosis for this admission?: Yes Plan: Patient underwent colonoscopy which was negative for any signs of bleeding however patient did have incomplete prep. Patient was transfused 2 units on admission and hemoglobin has been stable. Patient hemoglobin is now 10.6 but was as low as 7.3. (9) Renal transplant recipient Is this a current diagnosis for this admission?: Yes Plan: Continue home medications (10) Chronic bilateral lower abdominal pain Is this a current diagnosis for this admission?: Yes Plan: Possibly due to gastroparesis, ileus and/or constipation from chronic opiates use. Patient did undergo colonoscopy in EGD that did not show any obvious etiology of her abdominal pain. Patient is continued on her methadone. She states she no longer wants to take the Dilaudid. (11) DVT prophylaxis Is this a current diagnosis for this admission?: Yes Plan: SCDs no low molecular weight heparin due to dropping hemoglobin earlier this admission. (12) Constipation Is this a current diagnosis for this admission?: Yes Plan: Possibly secondary to chronic opiate use. Patient is on methadone and Dilaudid. Patient states that she no longer wants to continue to Dilaudid however would like to stay on the methadone as it helps her gastroparesis. She states she will discuss this with her pain management physician. Patient constipation is resolved. Patient does not want to take MiraLAX or docusate. Patient states she will ask for if she needs it otherwise she is happy with the Colace. - Time Time Spent with patient: Less than 15 minutes Anticipated discharge: SNF Within: when bed available
[2017-07-12] MEDS: SIMVASTATIN 40 MG TABLET PO SCH (21:21)
[2017-07-12] MEDS: METOPROLOL TARTRATE 25 MG TABLET PO SCH (21:21)
[2017-07-12] MEDS: CLONIDINE HCL 0.1 MG TABLET PO SCH (21:22)
[2017-07-13 06:10] LABS: ANION GAP 10 (5-19); BLOOD UREA NITROGEN 11 mg/dL (7-20); CALCIUM 9.4 mg/dL (8.4-10.2); CARBON DIOXIDE 25 mmol/L (22-30); CHLORIDE 108 mmol/L (98-107); CREATININE RESULT 0.66 mg/dL (0.52-1.25); GLUCOSE 111 mg/dL (75-110); POTASSIUM 4.9 mmol/L (3.6-5.0); SODIUM 142.8 mmol/L (137-145)
[2017-07-13] MEDS: HUM INSULIN NPH/REG INSULIN HM 100 UNIT/1 ML 3 ML SUBCUT SCH ×2 (08:08→16:52)
[2017-07-13] MEDS: PROMETHAZINE HCL INJ 25 MG/1 ML VIAL IV PRN (08:16)
[2017-07-13] MEDS: LEVOTHYROXINE SODIUM 0.025 MG TABLET PO SCH (08:16)
[2017-07-13] MEDS: LEVOTHYROXINE SODIUM 0.1 MG TABLET PO SCH (08:17)
[2017-07-13] MEDS: ACETAMINOPHEN 325 MG TABLET PO PRN (08:17)
[2017-07-13] MEDS: PREDNISONE 5 MG TABLET PO SCH (08:17)
[2017-07-13] MEDS: ASPIRIN 81 MG TABLET, CHEWABLE PO SCH (10:21)
[2017-07-13] MEDS: DULOXETINE HCL 30 MG CAPSULE.DR PO SCH ×2 (10:21→21:42)
[2017-07-13] MEDS: CHOLECALCIFEROL (D3) 1,000 UNIT TABLET PO SCH (10:22)
[2017-07-13] MEDS: TACROLIMUS ANHYDROUS 1 MG CAPSULE PO SCH ×2 (10:22→18:20)
[2017-07-13] MEDS: DOCUSATE SODIUM 100 MG CAPSULE PO SCH ×2 (10:23→18:19)
[2017-07-13] MEDS: FLUCONAZOLE 100 MG TABLET PO SCH (10:23)
[2017-07-13] MEDS: MAGNESIUM OXIDE 400 MG TABLET PO SCH ×2 (10:27→18:20)
[2017-07-13] MEDS: NYSTATIN TOPICAL POWDER 15 GM TP SCH (10:27)
[2017-07-13] MEDS: GLYCERIN (PEDIATRIC) SUPP.RECT PR SCH (10:27)
[2017-07-13] MEDS: LANSOPRAZOLE 30 MG TAB.RAP.DR PO SCH (10:27)
[2017-07-13] MEDS ORDERED: BUTALB/ACETAMINOPHEN/CAFFEINE 1 TAB EACH PO ONE (11:53)
[2017-07-13] MEDS ORDERED: DIPHENHYDRAMINE HCL 25 MG CAPSULE PO ONE (11:54)
[2017-07-13] MEDS: INSULIN LISPRO 100 UNIT/ML 3 ML VIAL SUBCUT PRN (12:58)
[2017-07-13] MEDS: NORMAL SALINE 1000 ML 1,000 ML IV PRN ×2 (13:09→22:41)
[2017-07-13] MEDS: ONDANSETRON HCL INJ/PF 4 MG/2 ML SDV IV PRN ×2 (13:15→21:56)
[2017-07-13] MEDS ORDERED: PHARMACY COMMUNICATION ORDER MC PRN (14:19)
[2017-07-13] MEDS ORDERED: CLOTRIMAZOLE 1% CREAM 15 GM TP PRN (14:28)
[2017-07-13] MEDS ORDERED: INFLUENZA ADLT QUAD (36MOS+) 2017-18 VAC 0.5 ML SYR IM PRN (14:30)
--- NOTE | 2017-07-13 16:12 | PDOC PROGRESS REPORT ---
Subjective Progress Note for:: 07/13/17 Subjective:: She presented with DKA encephalopathy now resolved. Patient also with acute GI bleed requiring 2 units of blood however negative colonoscopy. Patient concerned about not having her antirejection medication for kidney transplant for 11 days. Did call patient nephrology clinic in [facility] phone # [phone] to discuss patient's case. Explained to patient that I spoke with him and discussed the plan of care with her and patient was okay with remaining here during her hospitalization state of being transferred to [facility]. Physical Exam Vital Signs: Temp Pulse Resp BP Pulse Ox 98.1 F 87 20 138/70 H 95 07/13/17 03:14 07/13/17 07:00 07/13/17 03:14 07/13/17 03:14 07/13/17 03:14 Intake & Output 07/12/17 07/13/17 07/14/17 06:59 06:59 06:59 Intake Total 3718 2858 Output Total 2000 Balance 1718 2858 Weight 79.4 kg 78.8 kg General appearance: PRESENT: no acute distress Head exam: PRESENT: normocephalic Eye exam: PRESENT: EOMI, scleral icterus Ear exam: PRESENT: normal external ear exam Mouth exam: PRESENT: moist Neck exam: ABSENT: carotid bruit, JVD, lymphadenopathy, thyromegaly Respiratory exam: PRESENT: clear to auscultation grayson. ABSENT: rales, rhonchi, wheezes Cardiovascular exam: PRESENT: RRR. ABSENT: diastolic murmur, rubs, systolic murmur Pulses: PRESENT: normal dorsalis pedis pul Vascular exam: PRESENT: normal capillary refill GI/Abdominal exam: PRESENT: normal bowel sounds, soft. ABSENT: distended, guarding, mass, organolmegaly, rebound, tenderness Rectal exam: PRESENT: deferred Extremities exam: PRESENT: full ROM. ABSENT: calf tenderness, clubbing, pedal edema Neurological exam: PRESENT: alert, awake, oriented to person, oriented to place , oriented to time, oriented to situation, other - poor vision. ABSENT: motor sensory deficit Psychiatric exam: PRESENT: appropriate affect, normal mood. ABSENT: homicidal ideation, suicidal ideation Skin exam: PRESENT: rash, other - Rash under breast folds and groin area. ABSENT: cyanosis Results Laboratory Results: 07/11/17 15:02 07/13/17 04:18 07/13/17 04:18 Sodium 142.8 Potassium 4.9 Chloride 108 H Carbon Dioxide 25 Anion Gap 10 BUN 11 Creatinine 0.66 Est GFR ( Amer) > 60 Est GFR (Non-Af Amer) > 60 Glucose 111 H Calcium 9.4 Impressions: Abdomen X-Ray 07/03/17 06:25 IMPRESSION: Small amount of gas in the stomach and the ascending colon. Otherwise, there is paucity of bowel gas. Chest X-Ray 07/04/17 07:00 IMPRESSION: Patchy airspace disease in the right lower lobe, atelectasis versus pneumonia Assessment & Plan - Diagnosis (1) Diabetic ketoacidosis associated with type 1 diabetes mellitus Qualifiers: Diabetes mellitus complication detail: without coma Qualified Code(s): E10.10 - Type 1 diabetes mellitus with ketoacidosis without coma Is this a current diagnosis for this admission?: Yes Plan: Resolved. Patient is normally on insulin pump. Patient [facility] that [facility] as she is better able to manage that. Patient states she would discuss that with her endocrinology in [place] upon discharge. Will adjust patient's insulin to NPH regular insulin 7030 25 units twice daily along with sliding scale to better glucose control. (2) Acute blood loss anemia Is this a current diagnosis for this admission?: Yes Plan: Patient hemoglobin did drop during his hospitalization for which she required 2 units of packed RBCs. There was no evidence of bleeding on EGD and colonoscopy there was no obvious signs of bleeding. Patient hemoglobin has been stable. (3) Aspiration pneumonia Qualifiers: Aspiration pneumonia type: due to vomit Laterality: right Lung location: lower lobe of lung Qualified Code(s): J69.0 - Pneumonitis due to inhalation of food and vomit Is this a current diagnosis for this admission?: Yes Plan: Resolved. she completed treatment with Rocephin and Flagyl. (4) Candidal dermatitis Is this a current diagnosis for this admission?: Yes Plan: Patient not showing much improvement. Will start with zinc oxide topical along with clotrimazole. (5) Emesis Is this a current diagnosis for this admission?: Yes Plan: Patient did have episode of vomiting today. Will place patient on Zofran and stop the Phenergan as patient states she is becoming jittery which can happen sometimes with Phenergan. (6) Hypomagnesemia Is this a current diagnosis for this admission?: Yes Plan: Resolved. (7) Potassium (K) deficiency Is this a current diagnosis for this admission?: Yes Plan: Resolved. (8) Rectal bleeding Is this a current diagnosis for this admission?: Yes Plan: Patient underwent colonoscopy and endoscopy which was negative for any signs of bleeding however patient did have incomplete prep. Patient was transfused 2 units on admission and hemoglobin has been stable. (9) Renal transplant recipient Is this a current diagnosis for this admission?: Yes Plan: Concerned as she has not taken her Myfortic for 11 days. Advised patient to have her mother bring the medication in. Also, contacted her medical assisting program director in [place] Dr. Streeter at [phone]. They recommended that patient have a tacrolimus limits level checked in the morning and that the level should be to be between 4 and 6. Also check urine creatinine and a urine protein level. Will follow up her creatinine. Will call the clinic back tomorrow to notify them of the lab results. The clinic asked to be informed when patient is discharged to rehabilitation. [facility] was initially requesting transfer this will be honored if they so desire however the medical assisting program director from [place] does not feel that transfer is necessary at this time. (10) Chronic bilateral lower abdominal pain Is this a current diagnosis for this admission?: Yes Plan: Possibly due to gastroparesis, ileus and/or constipation from chronic opiates use. Patient did undergo colonoscopy in EGD that did not show any obvious etiology of her abdominal pain. Patient is continued on her methadone. She states she no longer wants to take the Dilaudid as this medication is not helping her. (11) DVT prophylaxis Is this a current diagnosis for this admission?: Yes Plan: SCDs. (12) Constipation Is this a current diagnosis for this admission?: Yes Plan: Resolved. - Time Time Spent with patient: 25-34 minutes Medications reviewed and adjusted accordingly: Yes Anticipated discharge: SNF Within: when bed available - Mother advised to bring patient's Myfortic. Did speak with the medical assisting program director office who also informed her to do the same thing. Will keep constant correspondence with the nephrology clinic in regards to managing the patient's renal medication. Transfers not necessary at this time per her medical assisting program director however this will be honored if needed.
[2017-07-13] MEDS: CLONIDINE HCL 0.1 MG TABLET PO SCH (21:42)
[2017-07-13] MEDS: SIMVASTATIN 40 MG TABLET PO SCH (21:42)
[2017-07-13] MEDS: METOPROLOL TARTRATE 25 MG TABLET PO SCH (21:44)
[2017-07-13] MEDS: MYCOPHENOLATE 360 MG PO SCH (21:50)
[2017-07-14] MEDS: ONDANSETRON HCL INJ/PF 4 MG/2 ML SDV IV PRN ×2 (02:45→16:51)
[2017-07-14 05:15] LABS: ANION GAP 9 (5-19); BLOOD UREA NITROGEN 9 mg/dL (7-20); CALCIUM 8.9 mg/dL (8.4-10.2); CARBON DIOXIDE 25 mmol/L (22-30); CHLORIDE 107 mmol/L (98-107); CREATININE RESULT 0.68 mg/dL (0.52-1.25); GLUCOSE 142 mg/dL (75-110); POTASSIUM 4.5 mmol/L (3.6-5.0); SODIUM 141.1 mmol/L (137-145)
[2017-07-14] MEDS ORDERED: NORMAL SALINE 1000 ML 1,000 ML IV PRN (11:25)
[2017-07-14] MEDS ORDERED: SUMATRIPTAN SUCCINATE 100 MG TABLET PO ONE (12:00)
[2017-07-14] MEDS: MAGNESIUM SULFATE/D5W 1 GM/100 ML RTUPB IV SCH ×2 (12:00→15:30)
[2017-07-14] MEDS ORDERED: CLONIDINE HCL 0.1 MG TABLET PO ONE (13:00)
[2017-07-14] MEDS: TACROLIMUS ANHYDROUS 1 MG CAPSULE PO SCH ×2 (13:49→18:00)
[2017-07-14] MEDS: LANSOPRAZOLE 30 MG TAB.RAP.DR PO SCH (13:51)
[2017-07-14] MEDS: DULOXETINE HCL 30 MG CAPSULE.DR PO SCH ×2 (13:51→21:57)
[2017-07-14] MEDS: PREDNISONE 5 MG TABLET PO SCH (13:51)
[2017-07-14] MEDS: HUM INSULIN NPH/REG INSULIN HM 100 UNIT/1 ML 3 ML SUBCUT SCH ×2 (14:01→15:36)
[2017-07-14] MEDS: INSULIN LISPRO 100 UNIT/ML 3 ML VIAL SUBCUT PRN ×2 (14:01→17:05)
[2017-07-14] MEDS: MYCOPHENOLATE 360 MG PO SCH ×2 (14:02→22:12)
[2017-07-14] MEDS: CHOLECALCIFEROL (D3) 1,000 UNIT TABLET PO SCH (14:57)
[2017-07-14] MEDS: DOCUSATE SODIUM 100 MG CAPSULE PO SCH ×2 (14:57→22:55)
[2017-07-14] MEDS: ZINC OXIDE 20% OINTMENT 28.35 GM TP SCH (14:57)
[2017-07-14] MEDS: GLYCERIN (PEDIATRIC) SUPP.RECT PR SCH (14:57)
[2017-07-14] MEDS: LEVOTHYROXINE SODIUM 0.1 MG TABLET PO SCH (14:57)
[2017-07-14] MEDS: LEVOTHYROXINE SODIUM 0.025 MG TABLET PO SCH (14:57)
[2017-07-14] MEDS: MAGNESIUM OXIDE 400 MG TABLET PO SCH ×2 (14:57→18:01)
[2017-07-14] MEDS: ASPIRIN 81 MG TABLET, CHEWABLE PO SCH (14:57)
--- NOTE | 2017-07-14 17:20 | PDOC PROGRESS REPORT ---
Subjective Progress Note for:: 07/14/17 Subjective:: She presented with DKA encephalopathy now resolved. Patient also with acute GI bleed requiring 2 units of blood however negative colonoscopy. Patient concerned about not having her antirejection medication for kidney transplant for 11 days. Patient has some confusion last night and was seeing things. Patient tearful and apologetic for her behavior this morning. She states that she does not feel well. He head hurts and so does her stomach. Patient is nauseated at times. Physical Exam Vital Signs: Temp Pulse Resp BP Pulse Ox 99.3 F 89 18 162/86 H 92 07/14/17 07:40 07/14/17 07:40 07/14/17 07:40 07/14/17 07:40 07/14/17 07:40 Intake & Output 07/13/17 07/14/17 07/15/17 06:59 06:59 06:59 Intake Total 2858 6805 Output Total 3850 Balance 2858 2955 Weight 78.8 kg 78 kg General appearance: PRESENT: mild distress, obese Head exam: PRESENT: normocephalic Eye exam: PRESENT: EOMI Mouth exam: PRESENT: neck supple Neck exam: PRESENT: full ROM Respiratory exam: PRESENT: clear to auscultation grayson, unlabored Cardiovascular exam: PRESENT: RRR, +S1, +S2 GI/Abdominal exam: PRESENT: normal bowel sounds, soft. ABSENT: tenderness Rectal exam: PRESENT: deferred Extremities exam: ABSENT: tenderness Musculoskeletal exam: PRESENT: normal inspection Neurological exam: PRESENT: alert, awake, oriented to person, oriented to place , oriented to time, oriented to situation, CN II-XII grossly intact Psychiatric exam: PRESENT: depressed, other - tearful Focused psych exam: PRESENT: restlessness Skin exam: PRESENT: rash - under breast and groin Results Laboratory Results: 07/11/17 15:02 07/14/17 04:16 07/14/17 04:16 Sodium 141.1 Potassium 4.5 Chloride 107 Carbon Dioxide 25 Anion Gap 9 BUN 9 Creatinine 0.68 Est GFR ( Amer) > 60 Est GFR (Non-Af Amer) > 60 Glucose 142 H Calcium 8.9 Impressions: Abdomen X-Ray 07/03/17 06:25 IMPRESSION: Small amount of gas in the stomach and the ascending colon. Otherwise, there is paucity of bowel gas. Chest X-Ray 07/04/17 07:00 IMPRESSION: Patchy airspace disease in the right lower lobe, atelectasis versus pneumonia Assessment & Plan - Diagnosis (1) Diabetic ketoacidosis associated with type 1 diabetes mellitus Qualifiers: Diabetes mellitus complication detail: without coma Qualified Code(s): E10.10 - Type 1 diabetes mellitus with ketoacidosis without coma Is this a current diagnosis for this admission?: Yes Plan: Resolved. Patient is normally on insulin pump. Patient states that she may consider going back to subcu insulin as she is better able to manage that. Patient states she would discuss that with her endocrinology in [place] upon discharge. Blood glucoses better controlled. (2) Acute blood loss anemia Is this a current diagnosis for this admission?: Yes Plan: Patient hemoglobin did drop during his hospitalization for which she required 2 units of packed RBCs. There was no evidence of bleeding on EGD and colonoscopy there was no obvious signs of bleeding. Patient hemoglobin has been stable. (3) Aspiration pneumonia Qualifiers: Aspiration pneumonia type: due to vomit Laterality: right Lung location: lower lobe of lung Qualified Code(s): J69.0 - Pneumonitis due to inhalation of food and vomit Is this a current diagnosis for this admission?: Yes Plan: Resolved. She completed treatment with Rocephin and Flagyl. (4) Candidal dermatitis Is this a current diagnosis for this admission?: Yes Plan: Patient not showing much improvement. Continue zinc oxide topical along with clotrimazole. (5) Emesis Is this a current diagnosis for this admission?: Yes Plan: Patient did have episode of vomiting today due to her gastroparesis. Patient receiving zofran for her nausea. Patient became jittery with phenergan. She is allergic to reglan. Will try scopolamine patch. (6) Hypomagnesemia Is this a current diagnosis for this admission?: Yes Plan: Resolved. (7) Potassium (K) deficiency Is this a current diagnosis for this admission?: Yes Plan: Resolved. (8) Rectal bleeding Is this a current diagnosis for this admission?: Yes Plan: Patient underwent colonoscopy and endoscopy which was negative for any signs of bleeding however patient did have incomplete prep. Patient was transfused 2 units on admission and hemoglobin has been stable. (9) Renal transplant recipient Is this a current diagnosis for this admission?: Yes Plan: Concerned as she has not taken her Myfortic for 11 days. Advised patient to have her mother bring the medication in. Also, contacted her bookstore clerk in [place] Dr. Streeter at [phone]. They recommended that patient have a tacrolimus limits level checked in the morning and that the level should be to be between 4 and 6. Also check urine creatinine and a urine protein level. Will follow up her creatinine. Will call the clinic back tomorrow to notify them of the lab results. The clinic asked to be informed when patient is discharged to rehabilitation. [facility] was initially requesting transfer this will be honored if they so desire however the bookstore clerk from [place] does not feel that transfer is necessary at this time. Tracolimus level still pending. (10) Chronic bilateral lower abdominal pain Is this a current diagnosis for this admission?: Yes Plan: Possibly due to gastroparesis, ileus and/or constipation from chronic opiates use. Patient did undergo colonoscopy in EGD that did not show any obvious etiology of her abdominal pain. Patient is continued on her methadone. She states she no longer wants to take the Dilaudid as this medication is not helping her. Will start patient on protonix. (11) DVT prophylaxis Is this a current diagnosis for this admission?: Yes Plan: SCDs. (12) Constipation Is this a current diagnosis for this admission?: Yes Plan: Resolved. (13) Migraine Qualifiers: Migraine type: unspecified Intractability: intractable Is this a current diagnosis for this admission?: Yes Plan: Patient has history of migraine for which she use to receive botox injections. Will given patient fluids, magnesium and sumatriptin. Patient can have PRN tylenol. She cannot take NSAIDs because of her kidney transplant. - Time Time Spent with patient: 15-24 minutes Anticipated discharge: SNF Within: Other - Patient has been accepted to [facility] and can go on Monday.
[2017-07-14] MEDS ORDERED: ACETAMINOPHEN 325 MG TABLET PO PRN (17:21)
[2017-07-14] MEDS: BACLOFEN 10 MG TABLET PO SCH (17:59)
[2017-07-14] MEDS: ACETAMINOPHEN 325 MG TABLET PO PRN ×2 (17:59→23:10)
[2017-07-14] MEDS: CLONIDINE HCL 0.1 MG TABLET PO SCH (21:58)
[2017-07-14] MEDS: SIMVASTATIN 40 MG TABLET PO SCH (22:11)
[2017-07-14] MEDS: METOPROLOL TARTRATE 25 MG TABLET PO SCH (22:12)
[2017-07-15] MEDS: ONDANSETRON HCL INJ/PF 4 MG/2 ML SDV IV PRN ×4 (00:26→22:00)
[2017-07-15] MEDS: LEVOTHYROXINE SODIUM 0.1 MG TABLET PO SCH (07:56)
[2017-07-15] MEDS: HUM INSULIN NPH/REG INSULIN HM 100 UNIT/1 ML 3 ML SUBCUT SCH ×2 (07:57→16:10)
[2017-07-15] MEDS: LEVOTHYROXINE SODIUM 0.025 MG TABLET PO SCH (08:00)
[2017-07-15] MEDS: PREDNISONE 5 MG TABLET PO SCH (08:00)
[2017-07-15] MEDS: LANSOPRAZOLE 30 MG TAB.RAP.DR PO SCH (08:00)
[2017-07-15] MEDS: INSULIN LISPRO 100 UNIT/ML 3 ML VIAL SUBCUT PRN ×2 (08:00→16:09)
[2017-07-15] MEDS: DOCUSATE SODIUM 100 MG CAPSULE PO SCH ×2 (09:40→18:01)
[2017-07-15] MEDS: GLYCERIN (PEDIATRIC) SUPP.RECT PR SCH (09:40)
[2017-07-15] MEDS: CHOLECALCIFEROL (D3) 1,000 UNIT TABLET PO SCH (11:11)
[2017-07-15] MEDS: BACLOFEN 10 MG TABLET PO SCH ×3 (11:11→18:00)
[2017-07-15] MEDS: ASPIRIN 81 MG TABLET, CHEWABLE PO SCH (11:11)
[2017-07-15] MEDS: DULOXETINE HCL 30 MG CAPSULE.DR PO SCH ×2 (11:17→21:48)
[2017-07-15] MEDS: MAGNESIUM OXIDE 400 MG TABLET PO SCH ×2 (11:17→17:59)
[2017-07-15] MEDS: ZINC OXIDE 20% OINTMENT 28.35 GM TP SCH (11:17)
[2017-07-15] MEDS: MYCOPHENOLATE 360 MG PO SCH ×2 (11:19→21:49)
[2017-07-15] MEDS: TACROLIMUS ANHYDROUS 1 MG CAPSULE PO SCH ×2 (11:19→18:00)
--- NOTE | 2017-07-15 11:30 | PDOC PROGRESS REPORT ---
Subjective Progress Note for:: 07/15/17 Subjective:: She presented with DKA encephalopathy now resolved. Patient also with acute GI bleed requiring 2 units of blood however negative colonoscopy. Patient states that he headache has gone away. Patient has a lot on her mind. She is ready to leave for rehab. Physical Exam Vital Signs: Temp Pulse Resp BP Pulse Ox 98.0 F 81 19 137/91 H 93 07/15/17 08:08 07/15/17 08:08 07/15/17 08:08 07/15/17 08:08 07/15/17 08:08 Intake & Output 07/14/17 07/15/17 07/16/17 06:59 06:59 06:59 Intake Total 6805 1100 Output Total 3850 1000 Balance 2955 100 Weight 78 kg 75.6 kg General appearance: PRESENT: no acute distress Head exam: PRESENT: normocephalic Eye exam: PRESENT: EOMI. ABSENT: scleral icterus Ear exam: PRESENT: normal external ear exam Neck exam: PRESENT: full ROM Respiratory exam: PRESENT: clear to auscultation grayson. ABSENT: rales, rhonchi, wheezes Cardiovascular exam: PRESENT: RRR. ABSENT: diastolic murmur, rubs, systolic murmur Pulses: PRESENT: normal dorsalis pedis pul Vascular exam: PRESENT: normal capillary refill GI/Abdominal exam: PRESENT: normal bowel sounds, soft. ABSENT: distended, guarding, mass, organolmegaly, rebound, tenderness Rectal exam: PRESENT: deferred Extremities exam: PRESENT: full ROM. ABSENT: calf tenderness, clubbing, pedal edema Neurological exam: PRESENT: alert, awake, oriented to person, oriented to place , oriented to time, oriented to situation, CN II-XII grossly intact, other - tremulous. ABSENT: motor sensory deficit Psychiatric exam: PRESENT: anxious, depressed. ABSENT: homicidal ideation, suicidal ideation Skin exam: PRESENT: dry, intact, rash - rash under breast and groin appear to be healing, warm. ABSENT: cyanosis Results Laboratory Results: 07/11/17 15:02 07/14/17 04:16 Impressions: Abdomen X-Ray 07/03/17 06:25 IMPRESSION: Small amount of gas in the stomach and the ascending colon. Otherwise, there is paucity of bowel gas. Chest X-Ray 10/03/17 07:00 IMPRESSION: Patchy airspace disease in the right lower lobe, atelectasis versus pneumonia Assessment & Plan - Diagnosis (1) Diabetic ketoacidosis associated with type 1 diabetes mellitus Qualifiers: Diabetes mellitus complication detail: without coma Qualified Code(s): E10.10 - Type 1 diabetes mellitus with ketoacidosis without coma Is this a current diagnosis for this admission?: Yes Plan: Resolved. Patient is normally on insulin pump. Patient states that she may consider going back to subcu insulin as she is better able to manage that. Patient states she would discuss that with her endocrinology in [place] upon discharge. Blood glucose better controlled on 30 units bid along with SSI. Will continue to monitor and adjust insulin accordingly. (2) Acute blood loss anemia Is this a current diagnosis for this admission?: Yes Plan: Patient hemoglobin did drop during his hospitalization for which she required 2 units of packed RBCs. There was no evidence of bleeding on EGD and colonoscopy there was no obvious signs of bleeding. Patient hemoglobin has been stable. (3) Aspiration pneumonia Qualifiers: Aspiration pneumonia type: due to vomit Laterality: right Lung location: lower lobe of lung Qualified Code(s): J69.0 - Pneumonitis due to inhalation of food and vomit Is this a current diagnosis for this admission?: Yes Plan: Resolved. Completed treatment with Rocephin and Flagyl. (4) Candidal dermatitis Is this a current diagnosis for this admission?: Yes Plan: Patient not showing much improvement. Continue zinc oxide topical along with clotrimazole. Patient was not improving with nystatin. (5) Emesis Is this a current diagnosis for this admission?: Yes Plan: Patient did have episode of vomiting today due to her gastroparesis. Patient receiving zofran for her nausea. Patient became jittery with phenergan. She is allergic to reglan. Improved without scopolamine patient however this is an option for symptoms return. (6) Hypomagnesemia Is this a current diagnosis for this admission?: Yes Plan: Resolved. (7) Potassium (K) deficiency Is this a current diagnosis for this admission?: Yes Plan: Resolved. (8) Rectal bleeding Is this a current diagnosis for this admission?: Yes Plan: Patient underwent colonoscopy and endoscopy which was negative for any signs of bleeding however patient did have incomplete prep. Patient was transfused 2 units on admission and hemoglobin has been stable. (9) Renal transplant recipient Is this a current diagnosis for this admission?: Yes Plan: Concerned as she has not taken her Myfortic for 11 days. Advised patient to have her mother bring the medication in. Also, contacted her physical trainer in [place] Dr. Fine at [phone]. They recommended that patient have a tacrolimus limits level checked in the morning and that the level should be to be between 4 and 6. Also check urine creatinine and a urine protein level. Will follow up her creatinine. Will call the clinic back tomorrow to notify them of the lab results. The clinic asked to be informed when patient is discharged to rehabilitation. [facility] was initially requesting transfer this will be honored if they so desire however the physical trainer from [place] does not feel that transfer is necessary at this time. Continue tacrolimus and myfortic. Tracolimus level still pending. Will call the transplant clinic at [phone] to discuss tacrolimus level, urine creatinine 22 and protein 17. Will also let them know when patient is discharged to rehab. (10) Chronic bilateral lower abdominal pain Is this a current diagnosis for this admission?: Yes Plan: Seems improved today. Possibly due to gastroparesis, ileus and/or constipation from chronic opiates use. Patient did undergo colonoscopy in EGD that did not show any obvious etiology of her abdominal pain. Patient is continued on her methadone. She states she no longer wants to take the Dilaudid as this medication is not helping her. Continue protonix. (11) DVT prophylaxis Is this a current diagnosis for this admission?: Yes Plan: SCDs. (12) Constipation Is this a current diagnosis for this admission?: Yes Plan: Resolved. (13) Migraine Qualifiers: Migraine type: unspecified Intractability: intractable Is this a current diagnosis for this admission?: Yes Plan: Resolved. Patient has history of migraine for which she use to receive botox injections. Will given patient fluids, magnesium and sumatriptin. Patient can have PRN tylenol. She cannot take NSAIDs because of her kidney transplant. - Time Time Spent with patient: Less than 15 minutes Anticipated discharge: SNF Within: within 48 hours - Patient has a bed at [facility] and if stable will be discharge on Monday. Patient transplant clinic would like be informed of her discharge.
[2017-07-15] MEDS: ACETAMINOPHEN 325 MG TABLET PO PRN (20:36)
[2017-07-15] MEDS: CLONIDINE HCL 0.1 MG TABLET PO SCH (21:48)
[2017-07-15] MEDS: METOPROLOL TARTRATE 25 MG TABLET PO SCH (21:49)
[2017-07-15] MEDS: SIMVASTATIN 40 MG TABLET PO SCH (21:49)
[2017-07-16 05:07] LABS: ABSOLUTE BASOPHILS # (AUTO) 0.1 10^3/uL (0.0-0.2); ABSOLUTE EOSINOPHILS # (AUTO) 0.1 10^3/uL (0.0-0.6); ABSOLUTE LYMPHOCYTES (AUTO) 2.6 10^3/uL (0.5-4.7); ABSOLUTE NEUT (AUTO) 4.6 10^3/uL (1.7-8.2); BASOPHILS % (AUTO) 1.5 % (0-2); EOSINOPHILS % (AUTO) 0.9 % (0-6); HEMATOCRIT 35.3 % (36.0-47.0); HEMOGLOBIN 11.3 g/dL (12.0-15.5); HGB HCT DIFFERENCE -1.4; LYMPHOCYTES % (AUTO) 31.4 % (13-45); MEAN CORPUSCULAR HEMOGLOBIN 23.8 pg (27.0-33.4); MEAN CORPUSCULAR VOLUME 74 fl (80-97); RED BLOOD COUNT 4.75 10^6/uL (3.72-5.28); RED CELL DISTRIBUTION WIDTH 26.6 % (11.5-14.0); SEGMENTED NEUTROPHILS % (AUTO) 54.2 % (42-78); WHITE BLOOD COUNT 8.4 10^3/uL (4.0-10.5)
[2017-07-16 05:19] LABS: BLOOD UREA NITROGEN 12 mg/dL (7-20); CALCIUM 9.5 mg/dL (8.4-10.2); CARBON DIOXIDE 31 mmol/L (22-30); CHLORIDE 106 mmol/L (98-107); CREATININE RESULT 0.78 mg/dL (0.52-1.25); GLUCOSE 55 mg/dL (75-110); POTASSIUM 4.6 mmol/L (3.6-5.0); SODIUM 147.4 mmol/L (137-145)
[2017-07-16 05:20] LABS: ALANINE AMINOTRANSFERASE 33 U/L (9-52); ALBUMIN 3.2 g/dL (3.5-5.0); ALKALINE PHOSPHATASE 63 U/L (38-126); ANION GAP 10 (5-19); ASPARTATE AMINO TRANSFERASE 26 U/L (14-36); BILIRUBIN,DIRECT 0.3 mg/dL (0.0-0.4); BILIRUBIN,TOTAL 0.4 mg/dL (0.2-1.3); MAGNESIUM 1.7 mg/dL (1.6-2.3); TOTAL PROTEIN 6.2 g/dL (6.3-8.2)
[2017-07-16 05:27] LABS: TOXIC GRANULATION SLIGHT; TOXIC VACUOLATION PRESENT
[2017-07-16 05:28] LABS: ANISOCYTOSIS 3+; HYPOCHROMASIA 1+; MICROCYTOSIS 1+; POIKILOCYTOSIS 1+; TARGET CELLS SLIGHT
[2017-07-16 05:29] LABS: OVALOCYTES 1+
[2017-07-16] MEDS ORDERED: MAGNESIUM SULFATE/D5W 1 GM/100 ML RTUPB IV ONE (07:22)
[2017-07-16] MEDS: PREDNISONE 5 MG TABLET PO SCH (08:18)
[2017-07-16] MEDS: ONDANSETRON HCL INJ/PF 4 MG/2 ML SDV IV PRN ×2 (08:19→19:57)
[2017-07-16] MEDS: MAGNESIUM OXIDE 400 MG TABLET PO SCH ×2 (09:13→17:28)
[2017-07-16] MEDS: LEVOTHYROXINE SODIUM 0.1 MG TABLET PO SCH (09:14)
[2017-07-16] MEDS: DOCUSATE SODIUM 100 MG CAPSULE PO SCH ×2 (09:14→17:28)
[2017-07-16] MEDS: DULOXETINE HCL 30 MG CAPSULE.DR PO SCH ×2 (09:14→21:47)
[2017-07-16] MEDS: BACLOFEN 10 MG TABLET PO SCH (09:15)
[2017-07-16] MEDS: LANSOPRAZOLE 30 MG TAB.RAP.DR PO SCH (09:15)
[2017-07-16] MEDS: LEVOTHYROXINE SODIUM 0.025 MG TABLET PO SCH (09:16)
[2017-07-16] MEDS: CHOLECALCIFEROL (D3) 1,000 UNIT TABLET PO SCH (09:16)
[2017-07-16] MEDS: ASPIRIN 81 MG TABLET, CHEWABLE PO SCH (09:17)
[2017-07-16] MEDS: MYCOPHENOLATE 360 MG PO SCH ×2 (09:43→21:48)
[2017-07-16] MEDS: TACROLIMUS ANHYDROUS 1 MG CAPSULE PO SCH ×2 (09:43→17:28)
[2017-07-16] MEDS: ZINC OXIDE 20% OINTMENT 28.35 GM TP SCH (09:45)
[2017-07-16] MEDS: HUM INSULIN NPH/REG INSULIN HM 100 UNIT/1 ML 3 ML SUBCUT SCH ×2 (10:52→15:23)
[2017-07-16] MEDS: GLYCERIN (PEDIATRIC) SUPP.RECT PR SCH (10:53)
[2017-07-16] MEDS: INSULIN LISPRO 100 UNIT/ML 3 ML VIAL SUBCUT PRN ×2 (13:02→17:28)
--- NOTE | 2017-07-16 16:28 | PDOC PROGRESS REPORT ---
Subjective Progress Note for:: 07/16/17 Subjective:: Patient reports she is not sleeping well. Patient denies chest pain, shortness of breath, abdominal pain, nausea, vomiting , fevers, chills, diarrhea, constipation, headache, new onset weakness. Physical Exam Vital Signs: Temp Pulse Resp BP Pulse Ox 98.7 F 105 H 23 H 149/80 H 91 L 07/16/17 11:52 07/16/17 14:00 07/16/17 11:52 07/16/17 11:52 07/16/17 11:52 Intake & Output 07/15/17 07/16/17 07/17/17 06:59 06:59 06:59 Intake Total 1100 1440 237 Output Total 0193 128 8517 Balance 100 1040 -1163 Weight 75.6 kg 75.6 kg Exam: General: Awake alert and oriented x3, no acute respiratory distress HEENT: AT/NC, PERRL, EOMI, oropharynx is moist, pink, no scleral icterus, no conjunctival injection Neck: No JVD, trachea midline Chest: Clear to auscultation bilaterally, no wheezes rhonchi or rales CV: Regular rate and rhythm, normal S1 and S2, no murmur, rub, or gallop Abdomen: Soft, nontender to palpation, nondistended, active bowel sounds; no rebound, rigidity, or guarding Extremities: No cyanosis, clubbing or edema Neuro: Tremulous, left eye laterally deviated; awake alert and oriented x3 Psych: depressed mood, slightly anxious Results Laboratory Results: 07/16/17 04:42 07/16/17 04:42 07/16/17 07/16/17 07/16/17 04:42 04:42 04:42 WBC 8.4 RBC 4.75 Hgb 11.3 L Hct 35.3 L MCV 74 L MCH 23.8 L MCHC 32.0 RDW 26.6 H Plt Count 348 Seg Neutrophils % 54.2 Lymphocytes % 31.4 Monocytes % 12.0 Eosinophils % 0.9 Basophils % 1.5 Absolute Neutrophils 4.6 Absolute Lymphocytes 2.6 Absolute Monocytes 1.0 Absolute Eosinophils 0.1 Absolute Basophils 0.1 Sodium 147.4 H Potassium 4.6 Chloride 106 Carbon Dioxide 31 H Anion Gap 10 BUN 12 Creatinine 0.78 Est GFR ( Amer) > 60 Est GFR (Non-Af Amer) > 60 Glucose 55 L Calcium 9.5 Magnesium 1.7 Total Bilirubin 0.4 AST 26 ALT 33 Alkaline Phosphatase 63 Ammonia < 8.7 L Total Protein 6.2 L Albumin 3.2 L Impressions: Abdomen X-Ray 07/03/17 06:25 IMPRESSION: Small amount of gas in the stomach and the ascending colon. Otherwise, there is paucity of bowel gas. Chest X-Ray 07/04/17 07:00 IMPRESSION: Patchy airspace disease in the right lower lobe, atelectasis versus pneumonia Assessment & Plan - Diagnosis (1) Diabetic ketoacidosis associated with type 1 diabetes mellitus Qualifiers: Diabetes mellitus complication detail: without coma Qualified Code(s): E10.10 - Type 1 diabetes mellitus with ketoacidosis without coma Is this a current diagnosis for this admission?: Yes Plan: Patient was initially admitted for this. This has resolved. She is doing well on her current regimen. Continue to monitor closely as I have increased his patient's prednisone (2) Acute blood loss anemia Is this a current diagnosis for this admission?: Yes Plan: Patient received 2 units packed red blood cells this admission. She had an upper and lower endoscopy which revealed no obvious signs of bleeding. Her hemoglobin has been stable. She does shows also some iron deficiency. (3) Aspiration pneumonia Qualifiers: Aspiration pneumonia type: due to vomit Laterality: right Lung location: lower lobe of lung Qualified Code(s): J69.0 - Pneumonitis due to inhalation of food and vomit Is this a current diagnosis for this admission?: Yes Plan: This has resolved. Patient completed treatment with Rocephin and Flagyl. (4) Candidal dermatitis Is this a current diagnosis for this admission?: Yes Plan: Continue nystatin and zinc. (5) Chronic bilateral lower abdominal pain Is this a current diagnosis for this admission?: Yes Plan: Patient has previously been on both Dilaudid and methadone as an outpatient for this. Patient is 14 days from her last narcotics. I believe some of this is responsible for her general dysphoria, but at this time due to her history of severe diabetes I feel that it is appropriate to keep her off of these medications. Currently she denies any abdominal pain. (6) Constipation Is this a current diagnosis for this admission?: Yes Plan: Encourage regular use of cathartics (7) DVT prophylaxis Is this a current diagnosis for this admission?: Yes Plan: SCDs and JAYRO hose secondary to previous bleed (8) Iron deficiency anemia Is this a current diagnosis for this admission?: Yes Plan: Continue iron supplementation (9) Renal transplant recipient Is this a current diagnosis for this admission?: Yes Plan: Continue tacrolimus, prednisone, and Myfortic. Will increase patient's prednisone to 10 mg p.o. daily for 2 weeks and then back to 5 mg p.o. daily. Tacrolimus level is currently pending and creatinine is stable, the patient did not receive her Myfortic for several days. (10) sirs due to dka, present on admission Is this a current diagnosis for this admission?: Yes Plan: Resolved (11) Opiate withdrawal Is this a current diagnosis for this admission?: Yes Plan: Continue clonidine for this. Symptom relief. Patient may withdraw from her methadone up to 3 4 weeks after cessation. Feel that her recent mood changes may be related to this. - Time Time Spent with patient: 35 or more minutes Anticipated discharge: Acute Rehab Within: when bed available
[2017-07-16] MEDS: ACETAMINOPHEN 325 MG TABLET PO PRN (17:30)
[2017-07-16] MEDS: LIDOCAINE 5% (700 MG) TRANSDERMAL ADH..PATCH TP PRN (19:39)
[2017-07-16] MEDS: CLONIDINE HCL 0.1 MG TABLET PO SCH (21:47)
[2017-07-16] MEDS: SIMVASTATIN 40 MG TABLET PO SCH (21:47)
[2017-07-16] MEDS: METOPROLOL TARTRATE 25 MG TABLET PO SCH (21:47)
[2017-07-16] MEDS ORDERED: RISPERIDONE 1 MG TABLET PO SCH (22:00)
[2017-07-17] MEDS: LEVOTHYROXINE SODIUM 0.1 MG TABLET PO SCH (07:32)
[2017-07-17] MEDS: PREDNISONE 5 MG TABLET PO SCH (07:32)
[2017-07-17] MEDS: HUM INSULIN NPH/REG INSULIN HM 100 UNIT/1 ML 3 ML SUBCUT SCH (07:32)
[2017-07-17] MEDS: LEVOTHYROXINE SODIUM 0.025 MG TABLET PO SCH (07:32)
[2017-07-17] MEDS: CHOLECALCIFEROL (D3) 1,000 UNIT TABLET PO SCH (09:35)
[2017-07-17] MEDS: DOCUSATE SODIUM 100 MG CAPSULE PO SCH (09:35)
[2017-07-17] MEDS: MAGNESIUM OXIDE 400 MG TABLET PO SCH (09:35)
[2017-07-17] MEDS: LANSOPRAZOLE 30 MG TAB.RAP.DR PO SCH (09:36)
[2017-07-17] MEDS: DULOXETINE HCL 30 MG CAPSULE.DR PO SCH (09:36)
[2017-07-17] MEDS: ASPIRIN 81 MG TABLET, CHEWABLE PO SCH (09:36)
[2017-07-17] MEDS: MYCOPHENOLATE 360 MG PO SCH (09:37)
[2017-07-17] MEDS: TACROLIMUS ANHYDROUS 1 MG CAPSULE PO SCH (09:37)
[2017-07-17] MEDS: ZINC OXIDE 20% OINTMENT 28.35 GM TP SCH (09:40)
[2017-07-17] MEDS: GLYCERIN (PEDIATRIC) SUPP.RECT PR SCH (09:41)
[2017-07-17] MEDS: ONDANSETRON HCL INJ/PF 4 MG/2 ML SDV IV PRN (09:50)
--- NOTE | 2017-07-17 09:53 | PDOC TRANSFER SUMMARY ---
General - Admit/Disc Date/PCP Admission Date/Primary Care Provider: 07/02/17 19:53 Discharge Date: 07/17/17 - Discharge Diagnosis (1) Diabetic ketoacidosis associated with type 1 diabetes mellitus Is this a current diagnosis for this admission?: Yes (2) Renal transplant recipient Is this a current diagnosis for this admission?: Yes (3) Acute blood loss anemia Is this a current diagnosis for this admission?: Yes (4) Aspiration pneumonia Is this a current diagnosis for this admission?: Yes (5) Candidal dermatitis Is this a current diagnosis for this admission?: Yes (6) Chronic bilateral lower abdominal pain Is this a current diagnosis for this admission?: Yes (7) Constipation Is this a current diagnosis for this admission?: Yes (8) Iron deficiency anemia Is this a current diagnosis for this admission?: Yes (9) sirs due to dka, present on admission Is this a current diagnosis for this admission?: Yes (10) Opiate withdrawal Is this a current diagnosis for this admission?: Yes (11) Scoliosis Is this a current diagnosis for this admission?: Yes (12) Diabetic neuropathy Is this a current diagnosis for this admission?: Yes (13) Obesity (BMI 30.0-34.9) Is this a current diagnosis for this admission?: Yes (14) Chronic steroid use Is this a current diagnosis for this admission?: Yes (15) Depression Is this a current diagnosis for this admission?: Yes - Additional Information Resuscitation Status: Full Code Discharge Diet: Cardiac, Diabetic Discharge Activity: Activity As Tolerated, Slowly Increase Activity, Walk Frequently, Weigh Daily Home Medications: Aspirin 81 mg PO DAILY 07/02/17 Cholecalciferol (Vitamin D3) [Vitamin D3] 2,000 unit PO DAILY 07/02/17 Clonidine HCl 0.1 mg PO QHS 07/02/17 Duloxetine HCl [Cymbalta] 60 mg PO Q12 07/02/17 Ferrous Sulfate 325 mg PO MEALS 07/02/17 Levothyroxine Sodium 125 mcg PO QAM 07/02/17 Magnesium Oxide 400 mg PO BID 07/02/17 Metoprolol Tartrate [Lopressor 25 mg Tablet] 12.5 mg PO QHS 07/02/17 Pantoprazole Sodium [Protonix] 40 mg PO BID 07/02/17 Simvastatin 40 mg PO QHS 07/02/17 Acetaminophen [Tylenol 325 mg Tablet] 325 mg PO Q4HP PRN tablet 07/17/17 Albuterol Sulfate [Proair HFA Inhalation Aerosol 8.5 gm MDI] 1 puff IH RTQ4HP PRN hfa.aer.ad 07/17/17 Cyclobenzaprine HCl 5 mg PO BIDP PRN #30 tablet 07/17/17 Docusate Sodium [Colace 100 mg Capsule] 100 mg PO BID capsule 07/17/17 Hum Insulin NPH/Reg Insulin Hm [Insulin 70-30 (NPH/Reg) 100 unit/mL] 30 unit SUBCUT BIDACBS unit 07/17/17 Insulin Lispro [Humalog Insulin (Lispro) 100 unit/mL] 0 - 12 unit SUBCUT ACP PRN #0 unit 07/17/17 Lidocaine [Lidoderm 5% (700 mg) Transdermal Patch] 1 patch TP DAILYP PRN adh..patch 07/17/17 Prednisone [Deltasone 5 mg Tablet] 10 mg PO QAM tablet 07/17/17 Risperidone [Risperdal 1 mg Tablet] 1 mg PO QHS #30 tablet 07/17/17 Tacrolimus Anhydrous [Prograf 1 mg Capsule] 1 mg PO BID capsule 07/17/17 Zinc Oxide [Zinc Oxide 20% Ointment 28.35 gm] 1 applic TP DAILY tube 07/17/17 History of Present Illness Admission Date/PCP: 07/02/17 19:53 History of Present Illness: KE SMITH is a 56 year old female with a past medical history of insulin- dependent diabetes, status post renal transplant 2009, chronic abdominal pain methadone and Dilaudid dependent, depression and anxiety. She been her usual state of health until approximately 12 hours prior to presentation having abdominal pain, nausea and glucometer reading high prompts her evaluation emergency room where she is found to be in DKA. She denies focal symptoms, chest pain, palpitations dysuria or constipation. She is unaware of any insulin pump dysfunction or dietary indiscretion. Hospital Course Hospital Course: Patient was intially encephalopathic secondary to dka and pneumonia. Patient was found to be in DKA secondary to pneumonia. DKA quickly resolved with insulin gtt and fluids. Patient found to be in DKA secondary to pneumonia. Patient completed Rocephin and Flagyl for this. Patient subsequently developed rectal bleeding and was given both upper and lower endoscopy, both of which were essentially negative. Patient was given subcutaneous vitamin K with resolution of her bleeding. Surgery, hematology/oncology, GI, and psychology. Patient continues to improve. She suffered from some dysphoria which was felt to be related to her depression. patient was not found to be a danger to herself or others. She was cleared by psych. Patient was started on Risperdal with good results. Patient had a KTP in 2009 and tacrolimus level is WNL 4.3. Patient did not receive her myfortic for several days and as a result her prednisone was increased to 10mg po qam for the next two weeks and then to be decreased to 5mg po daily after that time, which is her normal daily dose. Patient may use her outpatient antirejection medications. Patient is also to only have sliding scale insulin with meals. Accuchecks to be preformed qachs and prn hypoglycemia. Physical Exam Vital Signs: Temp Pulse Resp BP Pulse Ox 98.0 F 95 18 117/67 91 L 07/17/17 07:45 07/17/17 07:45 07/17/17 07:45 07/17/17 07:45 07/17/17 07:45 Intake & Output 07/16/17 07/17/17 07/18/17 06:59 06:59 06:59 Intake Total 1440 529 Output Total 400 2800 Balance 1040 -2271 Weight 75.6 kg 75.1 kg Exam: General: Awake alert and oriented x3, no acute respiratory distress HEENT: AT/NC, PERRL, EOMI, oropharynx is moist, pink, no scleral icterus, no conjunctival injection Neck: No JVD, trachea midline Chest: Clear to auscultation bilaterally, no wheezes rhonchi or rales CV: Regular rate and rhythm, normal S1 and S2, no murmur, rub, or gallop Abdomen: Soft, nontender to palpation, nondistended, active bowel sounds; no rebound, rigidity, or guarding Extremities: No cyanosis, clubbing or edema Neuro: Tremulous, left eye laterally deviated; awake alert and oriented x3 Psych: depressed mood, slightly anxious Results Laboratory Results: 07/16/17 04:42 07/16/17 04:42 Impressions: Abdomen X-Ray 07/03/17 06:25 IMPRESSION: Small amount of gas in the stomach and the ascending colon. Otherwise, there is paucity of bowel gas. Chest X-Ray 07/04/17 07:00 IMPRESSION: Patchy airspace disease in the right lower lobe, atelectasis versus pneumonia Transfer Plan - Time Spent with Patient Time spent with patient: Less than 30 Minutes Qualifiers PATEINT BEING DISCHARGED WITH ANY OF THE FOLLOWING DIAGNOSIS?: No Plan Time Spent: Less than 30 Minutes
[2017-07-17] MEDS: ACETAMINOPHEN 325 MG TABLET PO PRN (11:32)
[2017-07-17 13:07] VITALS: BP 143/83
[2017-07-17] MEDS: LIDOCAINE 5% (700 MG) TRANSDERMAL ADH..PATCH TP PRN (13:20)
== END 2017-07-17 15:12 | DRG 637 ==
LOC: ER 15:18 → EH 19:53 → 3N 21:55
PROVIDERS: ADMIT Internal Medicine; ATTEND Internal Medicine
PROC: 3E0F73Z Introduction of Anti-inflammatory into Respiratory Tract, Via Natural or Artificial Opening (ICD-10-PCS; principal; 2017-07-03)
PROC: 30233N1 Transfusion of Nonautologous Red Blood Cells into Peripheral Vein, Percutaneous Approach (ICD-10-PCS; 2017-07-03)
PROC: 0DJD8ZZ Inspection of Lower Intestinal Tract, Via Natural or Artificial Opening Endoscopic (ICD-10-PCS; 2017-07-04)
PROC: 0DJ08ZZ Inspection of Upper Intestinal Tract, Via Natural or Artificial Opening Endoscopic (ICD-10-PCS; 2017-07-04)
DX: E10.10 Type 1 diabetes mellitus with ketoacidosis without coma (principal); J69.0 Pneumonitis due to inhalation of food and vomit; D62 Acute posthemorrhagic anemia; Z94.0 Kidney transplant status; R65.10 Systemic inflammatory response syndrome (SIRS) of non-infectious origin without acute organ dysfunction; F11.23 Opioid dependence with withdrawal; K62.5 Hemorrhage of anus and rectum; B37.2 Candidiasis of skin and nail; R10.32 Left lower quadrant pain; R10.31 Right lower quadrant pain; G89.29 Other chronic pain; K59.00 Constipation, unspecified; D50.9 Iron deficiency anemia, unspecified; M41.9 Scoliosis, unspecified; E10.40 Type 1 diabetes mellitus with diabetic neuropathy, unspecified; F32.9 Major depressive disorder, single episode, unspecified; E78.5 Hyperlipidemia, unspecified; I10 Essential (primary) hypertension; F41.1 Generalized anxiety disorder; E87.5 Hyperkalemia; E87.6 Hypokalemia; E83.42 Hypomagnesemia; G43.919 Migraine, unspecified, intractable, without status migrainosus; Z96.41 Presence of insulin pump (external) (internal); Z79.51 Long term (current) use of inhaled steroids; Z79.4 Long term (current) use of insulin; Z79.899 Other long term (current) drug therapy; Z90.49 Acquired absence of other specified parts of digestive tract; Z90.710 Acquired absence of both cervix and uterus; Z88.6 Allergy status to analgesic agent; Z88.1 Allergy status to other antibiotic agents; Z88.3 Allergy status to other anti-infective agents; Z91.041 Radiographic dye allergy status; Z91.013 Allergy to seafood; Z88.2 Allergy status to sulfonamides; Z88.8 Allergy status to other drugs, medicaments and biological substances; Z91.018 Allergy to other foods; Z82.49 Family history of ischemic heart disease and other diseases of the circulatory system
CPT/HCPCS: 36415; 36430; 43235; 45378; 71010; 74020; 80048; 80053; 80197; 81001; 82140; 82272; 82570; 82607; 82728; 82746; 82962; 83036; 83540; 83550; 83735; 84156; 85025; 85027; 85045; 85610; 86850; 86900; 86901; 86920; 87040; 93005; 93010; 96374; 96375; 96376; 99291; G8978-GP; G8979-GP; G8987-GO; G8988-GO; J0171; J0696; J1170; J1610; J1644; J1815; J2250; J2310; J2405; J2550; J3010; J3475; J3480; J3490; J7030; J7507; J7512; P9016

== ENCOUNTER 2017-12-04 17:45 | Emergency (ER) | payer MEDICARE ==
[2017-12-04] MEDS ORDERED: ONDANSETRON HCL INJ/PF 4 MG/2 ML SDV IV ONE ×2 (18:39→20:47)
[2017-12-04] MEDS ORDERED: RINGERS SOLUTION,LACTATED 2,000 ML IV ONE (18:39)
[2017-12-04 18:54] LABS: ABSOLUTE LYMPHOCYTES (AUTO) 0.7 10^3/uL (0.5-4.7); ABSOLUTE MONOCYTES (AUTO) 0.4 10^3/uL (0.1-1.4); ABSOLUTE NEUT (AUTO) 8.3 10^3/uL (1.7-8.2); BASOPHILS % (AUTO) 0.1 % (0-2); HEMATOCRIT 41.9 % (36.0-47.0); HEMOGLOBIN 13.5 g/dL (12.0-15.5); LYMPHOCYTES % (AUTO) 7.8 % (13-45); MEAN CORPUSCULAR HEMOGLOBIN 25.7 pg (27.0-33.4); MEAN CORPUSCULAR HGB CONC 32.2 g/dL (32.0-36.0); MEAN CORPUSCULAR VOLUME 80 fl (80-97); MONOCYTES % (AUTO) 4.5 % (3-13); PLATELET COUNT 268 10^3/uL (150-450); RED BLOOD COUNT 5.24 10^6/uL (3.72-5.28); RED CELL DISTRIBUTION WIDTH 16.2 % (11.5-14.0); SEGMENTED NEUTROPHILS % (AUTO) 87.6 % (42-78); TOTAL CELLS COUNTED % (AUTO) 100 %; WHITE BLOOD COUNT 9.5 10^3/uL (4.0-10.5)
[2017-12-04 18:55] LABS: VENOUS BLOOD BASE EXCESS -4.2 mmol/L; VENOUS BLOOD HCO3 21.5 mmol/L (20-32); VENOUS BLOOD PCO2 41.6 mmHg (35-63); VENOUS BLOOD PH 7.33 (7.30-7.42)
[2017-12-04 19:01] LABS: ANION GAP 17 (5-19); BLOOD UREA NITROGEN 11 mg/dL (7-20); CARBON DIOXIDE 20 mmol/L (22-30); CHLORIDE 97 mmol/L (98-107); POTASSIUM 4.5 mmol/L (3.6-5.0); SODIUM 134.4 mmol/L (137-145)
[2017-12-04 19:11] LABS: GLUCOSE 431 mg/dL (75-110)
[2017-12-04] MEDS ORDERED: INSULIN REG, HUMAN 100 UNIT/ML 3 ML VIAL (PYX) IV ONE (19:13)
[2017-12-04] MEDS ORDERED: HYDROMORPHONE HCL INJ/PF 2 MG/ML AMPULE IV ONE (19:15)
--- NOTE | 2017-12-04 19:19 | ER Document Report ---
ED General - General Chief Complaint: Nausea/Vomiting/Diarrhea Stated Complaint: NAUSEA,VOMITING Time Seen by Provider: 12/04/17 18:37 Notes: Patient is a 57-year-old female with a past medical history of hypertension, hyperlipidemia, renal failure status post kidney transplant, type 1 diabetes with insulin dependence who presents with 3 days of progressively worsening nausea, vomiting, diarrhea, and generalized abdominal pain. Patient states that today she was having progressively worsening weakness and continues to be unable to tolerate any oral intake. She states this prompted her to come to the emergency department as she was worried that she was going into DKA. She has not seen her map compiler or primary care doctor regarding today's concerns. She states that her symptoms do feel very similar to when she has had diabetic ketoacidosis in the past. Nothing seems to improve or worsen her symptoms. She admits that she has not been taking her insulin over the past several days due to "not eating". She also notes that she has an insulin pump at home but that she has not been using it. She denies any chest pain, fever, shortness of breath, dysuria, vaginal bleeding or vaginal discharge. She does note a generalized, chronic, cramping abdominal pain that is not different today than her baseline. She states that since she has been having such profound vomiting she has not been taking any of her chronic opiate medications which include regular use of Dilaudid and more methadone. TRAVEL OUTSIDE OF THE [place] IN LAST 30 DAYS: No - Related Data Allergies/Adverse Reactions: amoxicillin Allergy (Verified 12/04/17 18:37) aspirin Allergy (Verified 12/04/17 18:37) clindamycin Allergy (Verified 12/04/17 18:37) divalproex sodium [From Depakote] Allergy (Verified 12/04/17 18:37) gabapentin [From Neurontin] Allergy (Verified 12/04/17 18:37) ibuprofen Allergy (Verified 12/04/17 18:37) iodine Allergy (Verified 12/04/17 18:37) iron Allergy (Verified 12/04/17 18:37) metoclopramide [From Reglan] Allergy (Verified 12/04/17 18:37) morphine Allergy (Verified 12/04/17 18:37) nalbuphine [From Nubain] Allergy (Verified 12/04/17 18:37) NSAIDS (Non-Steroidal Anti-Inflamma Allergy (Verified 12/04/17 18:37) orange juice Allergy (Verified 12/04/17 18:37) paricalcitol [From Zemplar] Allergy (Verified 12/04/17 18:37) pregabalin [From Lyrica] Allergy (Verified 12/04/17 18:37) Sulfa (Sulfonamide Antibiotics) Allergy (Verified 12/04/17 18:37) topiramate [From Topamax] Allergy (Verified 12/04/17 18:37) IVP dye Allergy (Uncoded 12/04/17 18:37) seafood Allergy (Uncoded 12/04/17 18:37) Past Medical History - General Information source: Patient, Relative - Social History Smoking Status: Never Smoker Frequency of alcohol use: None Drug Abuse: None Lives with: Family Family History: Hypertension Patient has suicidal ideation: No Patient has homicidal ideation: No - Past Medical History Cardiac Medical History: Reports: Hx Hypercholesterolemia, Hx Hypertension Neurological Medical History: Reports: Hx Cerebrovascular Accident. Denies: Hx Seizures Endocrine Medical History: Reports: Hx Diabetes Mellitus Type 1, Hx Diabetes Mellitus Type 2 Renal/ Medical History: Denies: Hx Peritoneal Dialysis Psychiatric Medical History: Reports: Hx Depression Past Surgical History: Reports: Hx Appendectomy, Hx Section - x1, Hx Cholecystectomy, Hx Hysterectomy, Hx Kidney (Renal Surgery) - Kidney transplant , Hx Tubal Ligation - Immunizations Hx Diphtheria, Pertussis, Tetanus Vaccination: Yes Review of Systems - Review of Systems Notes: Constitutional: Negative for fever. HENT: Negative for sore throat. Eyes: Negative for visual changes. Cardiovascular: Negative for chest pain. Respiratory: Negative for shortness of breath. Gastrointestinal: Positive for chronic abdominal pain, vomiting and diarrhea Genitourinary: Negative for dysuria. Musculoskeletal: Negative for back pain. Skin: Negative for rash. Neurological: Negative for headaches, weakness or numbness. 10 point ROS negative except as marked above and in HPI. Physical Exam - Vital signs Vitals: Temp Resp BP Pulse Ox 98.6 F 21 H 188/99 H 96 12/04/17 18:09 12/04/17 18:09 12/04/17 18:09 12/04/17 18:09 Interpretation: Normal Notes: PHYSICAL EXAMINATION: GENERAL: Moderately ill in appearance, dehydrated, somewhat lethargic but does respond appropriately to questions HEAD: Atraumatic, normocephalic. EYES: Pupils equal round and reactive to light, extraocular movements intact, sclera anicteric, conjunctiva are normal. ENT: nares patent, oropharynx clear without exudates. Severely dry mucous membranes. NECK: Normal range of motion, supple without lymphadenopathy LUNGS: Mild tachypnea. Breath sounds clear to auscultation bilaterally and equal. No wheezes rales or rhonchi. HEART: Regular tachycardia without murmurs ABDOMEN: Soft, mild diffuse tenderness without any localization, normoactive bowel sounds. No guarding, no rebound. No masses appreciated. EXTREMITIES: Normal range of motion, no pitting or edema. No cyanosis. NEUROLOGICAL: No focal neurological deficits. Moves all extremities spontaneously and on command. PSYCH: Somewhat lethargic SKIN: Warm, poor skin turgor, mild diffuse pallor Course - Re-evaluation Re-evalutation: 12/04/17 19:13 Patient presents with nausea, vomiting and diarrhea for the past 3 days and also failing to take her insulin during that time. She is overall dehydrated and ill in appearance. Somewhat lethargic but oriented 3. Laboratories did not demonstrate evidence of diabetic ketoacidosis with a normal anion gap and no evidence of acidemia. She is hyperglycemic at 431 however. The remainder of her labs are overall unremarkable. She has no localizing infectious symptoms other than nausea, vomiting and diarrhea. She may also to be going to be undergoing opiate withdrawal as she has not taken her methadone or Dilaudid for the past 3 days which could presents with nausea, vomiting and diarrhea. Patient does have a history of chronic abdominal pain. However on abdominal examination she denies any focal abdominal tenderness and states that her abdominal pain is at its baseline. Will provide IV rehydration, IV fluids, p.o. challenge. Patient is in guarded condition however as she is markedly tachycardic, obviously very dehydrated, somewhat lethargic, and will require frequent reassessments. 12/04/17 20:32 Patient has received 2 L of IV fluid. Her mental status is improving. We are now fluid challenging the patient. She is overall improving in appearance. She remains somewhat tachycardic although is also likely going through beta- cesia withdrawal as she is taking metoprolol daily and has not taken his medicine the last 48 hours. She is also profoundly hypertensive and has not been able take her antihypertensives while being ill. Will provide her normal home dose of metoprolol and clonidine. 2200-patient had been doing well tolerating oral intake but unfortunately has had a recurrent episode of vomiting. Her vitals continue to trend in appropriate direction however. Will provide IV haloperidol for nausea control as well as abdominal pain at this point. 12/04/17 23:54 Patient has had significant improvement in her clinical appearance, hemodynamic stability, hydration status, and has now tolerating oral intake for over 1 hour without any recurrence of vomiting. After receiving some of her home medications that she has been unable to tolerate it due to her persistent vomiting her heart rate is now 81, she is saturating 96% on room air, and her current blood pressure is 139 and 76. She states that she feels "100% better". I have emphasized with the patient that her hemoglobin A1c is concerning the elevated at greater than 14. She has an insulin pump but has not yet started using it. She is scheduled to follow-up with her map compiler in the morning. I have asked that she please review the severity of her poorly controlled diabetes and begin immediately regulate her blood sugars more tightly with her insulin pump and long-acting insulins. At this time will discharge with return precautions and follow-up recommendations. Verbal discharge instructions given a the bedside and opportunity for questions given. Medication warnings reviewed. Patient is in agreement with this plan and has verbalized understanding of return precautions and the need for primary care follow-up in the next 24-72 hours. - Vital Signs Vital signs: Temp Pulse Resp BP Pulse Ox 98.6 F 19 134/68 H 97 12/04/17 18:09 12/05/17 00:01 12/05/17 00:01 12/05/17 00:01 - Laboratory Result Diagrams: 12/04/17 18:09 12/04/17 18:09 Laboratory results interpreted by me: 12/04/17 12/04/17 12/04/17 18:09 18:09 18:09 MCH 25.7 L RDW 16.2 H Seg Neutrophils % 87.6 H Lymphocytes % 7.8 L Absolute Neutrophils 8.3 H Sodium 134.4 L Chloride 97 L Carbon Dioxide 20 L Glucose 431 H* POC Glucose Hemoglobin A1c % > 14.0 H 12/04/17 21:46 MCH RDW Seg Neutrophils % Lymphocytes % Absolute Neutrophils Sodium Chloride Carbon Dioxide Glucose POC Glucose 153 H Hemoglobin A1c % - Diagnostic Test Radiology reviewed: Image reviewed, Reports reviewed Radiology results interpreted by me: 12/04/17 23:56 Chest x-ray: No acute infiltrate or pneumothorax - EKG Interpretation by Me Additional EKG results interpreted by me: 12/04/17 19:15 Sinus tachycardia. Rate 114. No ST elevations or depressions. QTC is 425. Critical Care Note - Critical Care Note Total time excluding time spent on procedures (mins): 37 Comments: Critical care time spent obtaining history from patient or surrogate, discussions with consultants, development of treatment plan with patient or surrogate, evaluation of patient's response to treatment, examination of patient , ordering and performing treatments and interventions, ordering and review of laboratory studies, re-evaluation of patient's condition, ordering and review of radiographic studies and review of old charts Discharge - Discharge Clinical Impression: Dehydration, Hyperglycemia, Nausea vomiting and diarrhea, Opiate withdrawal, Renal transplant recipient Condition: Stable Disposition: HOME, SELF-CARE Additional Instructions: You were seen today for dehydration, high blood sugar, vomiting and diarrhea as well as likely opiate withdrawal. Your symptoms have improved with treatment here in the emergency department. Your labs did not show any evidence of diabetic ketoacidosis. Please be sure to continue to check your blood sugars regularly, take your insulin exactly as directed, and follow closely with your map compiler. Referrals: YAZAN JOHNSON MD [Primary Care Provider] - Follow up as needed
[2017-12-04] MEDS ORDERED: METOPROLOL TARTRATE 25 MG TABLET PO ONE (20:32)
[2017-12-04] MEDS ORDERED: CLONIDINE HCL 0.1 MG TABLET PO ONE (20:33)
[2017-12-04] MEDS ORDERED: METHADONE HCL 1 MG/ML 30 ML BOTTLE PO ONE (20:50)
[2017-12-04] MEDS ORDERED: METHADONE HCL 10 MG TABLET PO ONE (21:03)
--- NOTE | 2017-12-04 21:48 | EKG REPORT ---
SEVERITY:- ABNORMAL ECG - SINUS TACHYCARDIA RIGHT ATRIAL ABNORMALITY BORDERLINE T ABNORMALITIES, DIFFUSE LEADS : Confirmed by: Cody Childs 04-Dec-2017 21:46:59
[2017-12-04] MEDS ORDERED: HALOPERIDOL LACTATE INJ 5 MG/1 ML VIAL IV ONE (21:59)
--- NOTE | 2017-12-04 22:22 | RADIOLOGY REPORT (SQ) ---
EXAM DESCRIPTION: CHEST SINGLE VIEW COMPLETED DATE/TIME: 12/04/2017 10:10 pm REASON FOR STUDY: mild hypoxia COMPARISON: 07/04/2017 EXAM PARAMETERS: NUMBER OF VIEWS: One view. TECHNIQUE: Single frontal radiographic view of the chest acquired. RADIATION DOSE: NA LIMITATIONS: None. FINDINGS: LUNGS AND PLEURA: No acute opacities, masses or pneumothorax. No pleural effusion. MEDIASTINUM AND HILAR STRUCTURES: Stable. HEART AND VASCULAR STRUCTURES: Stable. BONES: No acute findings. HARDWARE: None in the chest. OTHER: No other significant finding. IMPRESSION: NO ACUTE RADIOGRAPHIC FINDING IN THE CHEST. TECHNICAL DOCUMENTATION: JOB ID: [id number] 2010 [employer]- All Rights Reserved Reading location - IP/workstation name: [email or web address]
[2017-12-05 00:10] VITALS: BP 134/68
== END 2017-12-05 00:29 | disposition home or self-care (01) ==
LOC: ER 17:45
DX: R11.2 Nausea with vomiting, unspecified (principal); E86.0 Dehydration; F11.23 Opioid dependence with withdrawal; R19.7 Diarrhea, unspecified; E10.65 Type 1 diabetes mellitus with hyperglycemia; I10 Essential (primary) hypertension; E78.5 Hyperlipidemia, unspecified; E78.00 Pure hypercholesterolemia, unspecified; Z88.0 Allergy status to penicillin; Z88.6 Allergy status to analgesic agent; Z88.2 Allergy status to sulfonamides; Z91.041 Radiographic dye allergy status; Z90.49 Acquired absence of other specified parts of digestive tract; Z90.710 Acquired absence of both cervix and uterus; Z79.4 Long term (current) use of insulin; Z94.0 Kidney transplant status
CPT/HCPCS: 93005; 96376; 99284; 96361; 96374; 96375; 36415; 82962; 85025; 80048; 83036; 82803; 83605; 71045; 93010; A9270 ×4; J1630; J1170; J2405; J7120; J1815; J3490

== ENCOUNTER 2019-12-24 10:01 | Inpatient (IN) | payer MEDICARE ==
--- NOTE | 2019-12-24 10:56 | ER Document Report ---
ED General - General Chief Complaint: High Blood Sugar Stated Complaint: HIGH BLOOD SUGAR Primary Care Provider: YAZAN JOHNSON MD [Primary Care Provider] - Follow up as needed Notes: Patient is a 59-year-old white female with a past medical history of diabetes who presents to the emergency department with a chief complaint of feeling unw ell for the past 4 days. She states starting on Monday she began feeling ill. She states she has diffuse nonspecific abdominal pain. She states is associated with nausea. She states she vomits any oral intake. She reports that she called chocolate finisher on Monday and they evaluated her at home and advised there were no beds in the hospital for her. She states she is tried to "ride this out" but states that she is not getting any better. She reports that she was in DKA in the past and states that this feels similar. She denies any chest pain or shortness of breath. Denies any fever chills or night sweats. No cough or hemoptysis. No diarrhea or urinary complaints. TRAVEL OUTSIDE OF THE [place] IN LAST 30 DAYS: No - Related Data Allergies/Adverse Reactions: amoxicillin Allergy (Verified 12/04/17 18:37) aspirin Allergy (Verified 12/04/17 18:37) clindamycin Allergy (Verified 12/04/17 18:37) divalproex sodium [From Depakote] Allergy (Verified 12/04/17 18:37) gabapentin [From Neurontin] Allergy (Verified 12/04/17 18:37) ibuprofen Allergy (Verified 12/04/17 18:37) iodine Allergy (Verified 12/04/17 18:37) iron Allergy (Verified 12/04/17 18:37) metoclopramide [From Reglan] Allergy (Verified 12/04/17 18:37) morphine Allergy (Verified 12/04/17 18:37) nalbuphine [From Nubain] Allergy (Verified 12/04/17 18:37) NSAIDS (Non-Steroidal Anti-Inflamma Allergy (Verified 12/04/17 18:37) orange juice Allergy (Verified 12/04/17 18:37) paricalcitol [From Zemplar] Allergy (Verified 12/04/17 18:37) pregabalin [From Lyrica] Allergy (Verified 12/04/17 18:37) Sulfa (Sulfonamide Antibiotics) Allergy (Verified 12/04/17 18:37) topiramate [From Topamax] Allergy (Verified 12/04/17 18:37) IVP dye Allergy (Uncoded 12/04/17 18:37) seafood Allergy (Uncoded 12/04/17 18:37) Past Medical History - Social History Smoking Status: Unknown if Ever Smoked Family History: Hypertension - Past Medical History Cardiac Medical History: Reports: Hx Hypercholesterolemia, Hx Hypertension Neurological Medical History: Reports: Hx Cerebrovascular Accident. Denies: Hx Seizures Endocrine Medical History: Reports: Hx Diabetes Mellitus Type 1, Hx Diabetes Mellitus Type 2 Renal/ Medical History: Denies: Hx Peritoneal Dialysis Psychiatric Medical History: Reports: Hx Depression Past Surgical History: Reports: Hx Appendectomy, Hx Section - x1, Hx Cholecystectomy, Hx Hysterectomy, Hx Kidney (Renal Surgery) - Kidney transplant, Hx Tubal Ligation - Immunizations Hx Diphtheria, Pertussis, Tetanus Vaccination: Yes Review of Systems - Review of Systems Gastrointestinal: Abdominal pain, Nausea, Vomiting -: Yes All other systems reviewed and negative Physical Exam - General General appearance: Appears well, Alert In distress: None - HEENT Head: Normocephalic, Atraumatic Eyes: Other - Reported blindness left eye at baseline Extraocular movements intact: Yes Eyelashes: Normal Pupils: PERRL Ears: Normal External canal: Normal Tympanic membrane: Normal Sinus: Normal Nasal: Normal Mouth/Lips: Normal Mucous membranes: Dry Pharynx: Normal Neck: Normal - Respiratory Respiratory status: No respiratory distress Chest status: Nontender Breath sounds: Normal Chest palpation: Normal - Cardiovascular Rhythm: Regular Heart sounds: Normal auscultation - Abdominal Inspection: Normal Distension: No distension Bowel sounds: Normal Tenderness: Tender - Diffuse tenderness to palpation - Extremities General upper extremity: Normal inspection, Nontender, Normal color, Normal ROM, Normal temperature General lower extremity: Normal inspection, Nontender, Normal color, Normal ROM, Normal temperature, Normal weight bearing. No: Tila's sign - Neurological Neuro grossly intact: Yes Cognition: Normal Orientation: AAOx4 Lois Coma Scale Eye Opening: Spontaneous Lois Coma Scale Verbal: Oriented Lois Coma Scale Motor: Obeys Commands Lois Coma Scale Total: 15 Speech: Normal - Psychological Associated symptoms: Normal affect, Normal mood - Skin Skin Temperature: Warm Skin Moisture: Dry Skin Color: Other - Fair turgor Course - Re-evaluation Re-evalutation: 12/24/19 12:[address] Almanza at this time, he will admit the patient to the ICU for further care management. Patient stable for admission at this time. Fluids and insulin drip started. - Laboratory Result Diagrams: 12/24/19 10:30 12/24/19 10:30 Laboratory results interpreted by me: 12/24/19 12/24/19 12/24/19 10:30 10:30 10:30 WBC 16.4 H Hgb 9.9 L Hct 31.8 L MCV 73 L MCH 22.5 L MCHC 31.0 L RDW 20.3 H Lymph % (Auto) 5.2 L Absolute Neuts (auto) 14.5 H Seg Neutrophils % 87.9 H VBG pH 7.27 L Sodium 124.2 L Chloride 84 L BUN 26 H Creatinine 1.34 H Est GFR ( Amer) 49 L Est GFR (MDRD) Non-Af 41 L Glucose 683 H* Direct Bilirubin 0.5 H AST 37 H Alkaline Phosphatase 167 H Lipase < 10.0 L Urine Glucose (UA) Urine Ketones Urine Blood Leukocyte Esterase Rfl 12/24/19 10:30 WBC Hgb Hct MCV MCH MCHC RDW Lymph % (Auto) Absolute Neuts (auto) Seg Neutrophils % VBG pH Sodium Chloride BUN Creatinine Est GFR ( Amer) Est GFR (MDRD) Non-Af Glucose Direct Bilirubin AST Alkaline Phosphatase Lipase Urine Glucose (UA) >=500 H Urine Ketones TRACE H Urine Blood SMALL H Leukocyte Esterase Rfl TRACE H Discharge - Discharge Clinical Impression: DKA (diabetic ketoacidoses) Qualifiers: Diabetes mellitus type: other specified (including ALYSSA) Diabetes mellitus complication detail: without coma Qualified Code(s): E13.10 - Other specified diabetes mellitus with ketoacidosis without coma Condition: Serious Disposition: ADMITTED INPATIENT Admitting Provider: Cami (Hospitalist) Unit Admitted: ICU Referrals: YAZAN JOHNSON MD [Primary Care Provider] - Follow up as needed
[2019-12-24 11:14] LABS: VENOUS BLOOD BASE EXCESS -0.1 mmol/L; VENOUS BLOOD HCO3 28.1 mmol/L (20-32); VENOUS BLOOD PCO2 62.8 mmHg (35-63); VENOUS BLOOD PH 7.27 (7.30-7.42)
[2019-12-24 11:16] LABS: ABSOLUTE LYMPHOCYTES (AUTO) 0.9 10^3/uL (0.5-4.7); ABSOLUTE MONOCYTES (AUTO) 1.1 10^3/uL (0.1-1.4); ABSOLUTE NEUT (AUTO) 14.5 10^3/uL (1.7-8.2); BASOPHILS % (AUTO) 0.1 % (0-2); EOSINOPHILS % (AUTO) 0.1 % (0-6); HEMATOCRIT 31.8 % (36.0-47.0); HEMOGLOBIN 9.9 g/dL (12.0-15.5); LYMPHOCYTES % (AUTO) 5.2 % (13-45); MEAN CORPUSCULAR HEMOGLOBIN 22.5 pg (27.0-33.4); MEAN CORPUSCULAR VOLUME 73 fl (80-97); MONOCYTES % (AUTO) 6.7 % (3-13); PLATELET COUNT 305 10^3/uL (150-450); RED BLOOD COUNT 4.38 10^6/uL (3.72-5.28); RED CELL DISTRIBUTION WIDTH 20.3 % (11.5-14.0); SEGMENTED NEUTROPHILS % (AUTO) 87.9 % (42-78); TOTAL CELLS COUNTED % (AUTO) 100 %; WHITE BLOOD COUNT 16.4 10^3/uL (4.0-10.5)
[2019-12-24 11:19] LABS: ALBUMIN 3.8 g/dL (3.5-5.0); ALKALINE PHOSPHATASE 167 U/L (38-126); ANION GAP 16 (5-19); ASPARTATE AMINO TRANSFERASE 37 U/L (14-36); BILIRUBIN,DIRECT 0.5 mg/dL (0.0-0.4); BILIRUBIN,TOTAL 0.9 mg/dL (0.2-1.3); BLOOD UREA NITROGEN 26 mg/dL (7-20); CALCIUM 9.2 mg/dL (8.4-10.2); CARBON DIOXIDE 24 mmol/L (22-30); CHLORIDE 84 mmol/L (98-107); POTASSIUM 4.7 mmol/L (3.6-5.0); TOTAL PROTEIN 7.5 g/dL (6.3-8.2)
[2019-12-24] MEDS: NORMAL SALINE 1000 ML 1,000 ML IV PRN ×2 (11:22→12:24)
[2019-12-24 11:25] LABS: APPEARANCE,URINE SLIGHTLY-CLOUDY; BILIRUBIN,URINE NEGATIVE (NEGATIVE); COLOR,URINE YELLOW; GLUCOSE, URINE >=500 mg/dL (NEGATIVE); KETONES,URINE TRACE mg/dL (NEGATIVE); PROTEIN,URINE NEGATIVE (NEGATIVE); URINE SPECIFIC GRAVITY 1.015; UROBILINOGEN,URINE NEGATIVE mg/dL (<2.0)
[2019-12-24] MEDS ORDERED: NORMAL SALINE 100 ML with INSULIN REGULAR, HUMAN 100 UNIT IV PRN ×4 (11:51→13:06)
[2019-12-24 12:05] LABS: GLUCOSE 683 mg/dL (75-110)
[2019-12-24] MEDS ORDERED: INSULIN REG, HUMAN 100 UNIT/ML 3 ML VIAL (PYX) ONE (12:44)
[2019-12-24] MEDS ORDERED: DEXTROSE 50%-WATER 25 GM/50 ML DISP.SYRIN IV PRN ×2 (12:58)
[2019-12-24] MEDS ORDERED: ACETAMINOPHEN 325 MG TABLET PO PRN (12:58)
[2019-12-24] MEDS ORDERED: POTASSI CL 20 MEQ/NS 1L 1,000 ML IV PRN ×2 (12:58→13:05)
[2019-12-24] MEDS ORDERED: GLUCAGON,HUMAN RECOMB 1 MG INJ SUBCUT PRN (12:58)
[2019-12-24] MEDS ORDERED: DEXTROSE 40% GEL 15 GM TUBE PO PRN ×2 (12:58)
[2019-12-24] MEDS ORDERED: NORMAL SALINE 1000 ML 1,000 ML IV ONE ×2 (13:05→16:01)
[2019-12-24] MEDS ORDERED: INSULIN REG, HUMAN 100 UNIT/ML 3 ML VIAL (PYX) IV ONE (13:15)
--- NOTE | 2019-12-24 13:31 | PDOC H&P ---
History of Present Illness Admission Date/PCP: 12/24/19 12:21 YAZAN JOHNSON MD Patient complains of: abd pain, nausea, vomiting History of Present Illness: KE SMITH is a 59 year old female with insulin-dependent diabetes mellitus, renal transplant in 2009, chronic abdominal pain, depression, who presents to the hospital with complaints of feeling unwell. She describes this as abdominal pain nausea and vomiting for the past 2 days that is been progressively worsening. States that she typically feels this way when her blood sugar is getting high. States that on Monday, she was having some sore throat and chills and called the rescue squad who told her that she did not need to go the hospital at that time. Denied any shortness of breath but did say that she felt feverish at that time. Denied any significant cough or rhinorrhea at the time. Today has symptoms that are getting worse and she was nauseous and vomiting throughout yesterday. Subsequently presented in the hospital and was noted to be hyperglycemic over 600 and referred to hospitalist service for admission. Patient denies any noncompliance with her insulin. Patient also denies any trips outside the [facility] and states that she has been at home for the past 3 weeks because she did not want to go out and catch any infection. She lives with her mother who does all the shopping. Denies any sick exposure. States her mom has been in good health and has not shown any evidence of respiratory symptoms. Past Medical History Cardiac Medical History: Reports: Hyperlipidema, Hypertension Neurological Medical History: Denies: Seizures Endocrine Medical History: Reports: Diabetes Mellitus Type 1 Psychiatric Medical History: Reports: Depression Hematology: Reports: Anemia Past Surgical History Past Surgical History: Reports: Appendectomy, Section - x1, Cholecystectomy, Hysterectomy, Tubal Ligation Social History Smoking Status: Never Smoker Frequency of Alcohol Use: None Hx Recreational Drug Use: No - Advance Directive Resuscitation Status: Full Code Family History Family History: Hypertension Parental Family History Reviewed: Yes Children Family History Reviewed: NA Sibling(s) Family History Reviewed.: NA Medication/Allergy Home Medications: Aspirin 81 mg PO DAILY 07/02/17 Cholecalciferol (Vitamin D3) [Vitamin D3] 2,000 unit PO DAILY 07/02/17 Clonidine HCl 0.1 mg PO QHS 07/02/17 Duloxetine HCl [Cymbalta] 60 mg PO Q12 07/02/17 Ferrous Sulfate 325 mg PO MEALS 07/02/17 Levothyroxine Sodium 125 mcg PO QAM 07/02/17 Magnesium Oxide 400 mg PO BID 07/02/17 Metoprolol Tartrate [Lopressor 25 mg Tablet] 12.5 mg PO QHS 07/02/17 Pantoprazole Sodium [Protonix] 40 mg PO BID 07/02/17 Simvastatin 40 mg PO QHS 07/02/17 Acetaminophen [Tylenol 325 mg Tablet] 325 mg PO Q4HP PRN tablet 07/17/17 Albuterol Sulfate [Proair HFA Inhalation Aerosol 8.5 gm MDI] 1 puff IH RTQ4HP PRN hfa.aer.ad 07/17/17 Cyclobenzaprine HCl 5 mg PO BIDP PRN #30 tablet 07/17/17 Docusate Sodium [Colace 100 mg Capsule] 100 mg PO BID capsule 07/17/17 Hum Insulin NPH/Reg Insulin Hm [Insulin 70-30 (NPH/Reg) 100 unit/mL] 30 unit SUBCUT BIDACBS unit 07/17/17 Insulin Lispro [Humalog Insulin (Lispro) 100 unit/mL] 0 - 12 unit SUBCUT ACP PRN #0 unit 07/17/17 Lidocaine [Lidoderm 5% (700 mg) Transdermal Patch] 1 patch TP DAILYP PRN adh..patch 07/17/17 Prednisone [Deltasone 5 mg Tablet] 10 mg PO QAM tablet 07/17/17 Risperidone [Risperdal 1 mg Tablet] 1 mg PO QHS #30 tablet 07/17/17 Tacrolimus Anhydrous [Prograf 1 mg Capsule] 1 mg PO BID capsule 07/17/17 Zinc Oxide [Zinc Oxide 20% Ointment 28.35 gm] 1 applic TP DAILY tube 07/17/17 Allergies/Adverse Reactions: amoxicillin Allergy (Verified 12/04/17 18:37) aspirin Allergy (Verified 12/04/17 18:37) clindamycin Allergy (Verified 12/04/17 18:37) divalproex sodium [From Depakote] Allergy (Verified 12/04/17 18:37) gabapentin [From Neurontin] Allergy (Verified 12/04/17 18:37) ibuprofen Allergy (Verified 12/04/17 18:37) iodine Allergy (Verified 12/04/17 18:37) iron Allergy (Verified 03/05/18 18:37) metoclopramide [From Reglan] Allergy (Verified 12/04/17 18:37) morphine Allergy (Verified 12/04/17 18:37) nalbuphine [From Nubain] Allergy (Verified 12/04/17 18:37) NSAIDS (Non-Steroidal Anti-Inflamma Allergy (Verified 12/04/17 18:37) orange juice Allergy (Verified 12/04/17 18:37) paricalcitol [From Zemplar] Allergy (Verified 12/04/17 18:37) pregabalin [From Lyrica] Allergy (Verified 12/04/17 18:37) Sulfa (Sulfonamide Antibiotics) Allergy (Verified 12/04/17 18:37) topiramate [From Topamax] Allergy (Verified 12/04/17 18:37) IVP dye Allergy (Uncoded 12/04/17 18:37) seafood Allergy (Uncoded 12/04/17 18:37) Review of Systems Constitutional: PRESENT: chills. 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 ABSENT: headache(s) Cardiovascular: ABSENT: chest pain Respiratory: ABSENT: cough, dyspnea Gastrointestinal: PRESENT: abdominal pain, nausea, vomiting. ABSENT: diarrhea, hematemesis, hematochezia, melena Genitourinary: ABSENT: dysuria Integumentary: ABSENT: diaphoresis Neurological: PRESENT: dizziness - Occasional. ABSENT: confusion Psychiatric: ABSENT: anxiety Endocrine: PRESENT: polyuria Allergic/Immunologic: PRESENT: other - Denies rhinorrhea or nasal congestion Physical Exam Vital Signs: Temp Pulse Resp BP Pulse Ox 27 H 134/67 H 94 12/24/19 10:08 12/24/19 12:01 12/24/19 12:01 Intake & Output 12/23/19 12/24/19 12/25/19 06:59 06:59 06:59 Intake Total 1999 Balance 1999 Weight 73 kg General appearance: PRESENT: no acute distress, cooperative Neck exam: ABSENT: JVD Respiratory exam: PRESENT: clear to auscultation grayson, unlabored. ABSENT: tachypnea, wheezes Cardiovascular exam: PRESENT: +S1, +S2 GI/Abdominal exam: PRESENT: normal bowel sounds, soft, tenderness. ABSENT: rebound, rigid Extremities exam: ABSENT: pedal edema Neurological exam: PRESENT: alert, awake Psychiatric exam: ABSENT: agitated, anxious Focused psych exam: ABSENT: pressured speech Skin exam: ABSENT: jaundice Results Laboratory Results: 12/24/19 10:30 12/24/19 10:30 12/24/19 12/24/19 12/24/19 10:30 10:30 10:30 WBC 16.4 H RBC 4.38 Hgb 9.9 L Hct 31.8 L MCV 73 L MCH 22.5 L MCHC 31.0 L RDW 20.3 H Plt Count 305 Seg Neutrophils % 87.9 H VBG pH 7.27 L VBG pCO2 62.8 VBG HCO3 28.1 VBG Base Excess -0.1 Sodium 124.2 L Potassium 4.7 Chloride 84 L Carbon Dioxide 24 Anion Gap 16 BUN 26 H Creatinine 1.34 H Est GFR ( Amer) 49 L Glucose 683 H* Calcium 9.2 Total Bilirubin 0.9 AST 37 H Alkaline Phosphatase 167 H Total Protein 7.5 Albumin 3.8 Lipase < 10.0 L Urine Color Urine Appearance Urine pH Ur Specific [place] Urine Protein Urine Glucose (UA) Urine Ketones Urine Blood Urine RBC (Auto) 12/24/19 10:30 WBC RBC Hgb Hct MCV MCH MCHC RDW Plt Count Seg Neutrophils % VBG pH VBG pCO2 VBG HCO3 VBG Base Excess Sodium Potassium Chloride Carbon Dioxide Anion Gap BUN Creatinine Est GFR ( Amer) Glucose Calcium Total Bilirubin AST Alkaline Phosphatase Total Protein Albumin Lipase Urine Color YELLOW Urine Appearance SLIGHTLY-CLOUDY Urine pH 5.0 Ur Specific [place] 1.015 Urine Protein NEGATIVE Urine Glucose (UA) >=500 H Urine Ketones TRACE H Urine Blood SMALL H Urine RBC (Auto) 0 Assessment and Plan - Diagnosis (1) HHNC (hyperglycemic hyperosmolar nonketotic coma) Is this a current diagnosis for this admission?: Yes Plan: Trace ketosis in urine. Anion gap of 16. Pseudo-hyponatremia noted. Blood glucose of 683. pH on VBG of 7.27. We will give aggressive IV fluids with normal saline boluses. Already started on insulin drip which I will continue and give IV insulin regular 10 units now. Repeat BMP Accu-Cheks every 1 hour Admit to IMCU Keep n.p.o. for now (2) Insulin dependent diabetes mellitus Is this a current diagnosis for this admission?: Yes Plan: Patient states that she takes Lantus 21 units at bedtime. Will resume home regimen once HHN K is resolved. Check hemoglobin A1c. (3) Leukocytosis Qualifiers: Leukocytosis type: unspecified Qualified Code(s): D72.829 - Elevated white blood cell count, unspecified Is this a current diagnosis for this admission?: Yes Plan: Suspect he may be secondary to hemoconcentration. Will check chest x-ray. Urinalysis negative for urinary tract infection. (4) Microcytic anemia Is this a current diagnosis for this admission?: Yes Plan: Suspect iron deficiency anemia. Check iron studies. (5) RICHARD (acute kidney injury) Is this a current diagnosis for this admission?: Yes Plan: Monitor response with IV fluids. Secondary to dehydration. - Time Time Spent with patient: 35 or more minutes
[2019-12-24] MEDS ORDERED: PANTOPRAZOLE SODIUM 40 MG VIAL IV SCH (14:00)
[2019-12-24] MEDS: HEPARIN SOD (PORCINE) 5,000 UNIT/ML 1 ML VIAL SUBCUT SCH ×2 (14:04→22:21)
--- NOTE | 2019-12-24 15:18 | RADIOLOGY REPORT (SQ) ---
EXAM DESCRIPTION: CHEST 2 VIEWS COMPLETED DATE/TIME: 12/24/2019 2:14 pm REASON FOR STUDY: Leukocytosis, DKA COMPARISON: 03/06/2011 EXAM PARAMETERS: NUMBER OF VIEWS: two views TECHNIQUE: Digital Frontal and Lateral radiographic views of the chest acquired. RADIATION DOSE: NA LIMITATIONS: none FINDINGS: LUNGS AND PLEURA: No opacities, masses or pneumothorax. No pleural effusion. MEDIASTINUM AND HILAR STRUCTURES: No masses or contour abnormalities. HEART AND VASCULAR STRUCTURES: Heart normal size. No evidence for failure. BONES: No acute findings. HARDWARE: Scoliosis. OTHER: No other significant finding. IMPRESSION: Scoliosis. No acute cardiopulmonary finding. TECHNICAL DOCUMENTATION: JOB ID: [id number] 2010 [employer]- All Rights Reserved Reading location - IP/workstation name: [email or web address]
[2019-12-24] MEDS ORDERED: ACETAMINOPHEN 325 MG TABLET PO ONE (15:37)
[2019-12-24 16:33] LABS: ANION GAP 10 (5-19); BLOOD UREA NITROGEN 19 mg/dL (7-20); CALCIUM 8.2 mg/dL (8.4-10.2); CARBON DIOXIDE 22 mmol/L (22-30); CHLORIDE 100 mmol/L (98-107); GLUCOSE 202 mg/dL (75-110); POTASSIUM 3.9 mmol/L (3.6-5.0)
[2019-12-24 16:36] LABS: A TYPE INFLUENZA AG NEGATIVE (NEGATIVE); B INFLUENZA AG NEGATIVE (NEGATIVE)
[2019-12-24] MEDS ORDERED: NORMAL SALINE 1000 ML 1,000 ML IV PRN (17:13)
[2019-12-24] MEDS ORDERED: VANCOMYCIN HCL INJ 1000 MG VIAL IV SCH (17:15)
[2019-12-24] MEDS ORDERED: PIPERACILLIN/TAZOBACTAM 3.375 GM VIAL IV SCH (17:15)
[2019-12-24] MEDS ORDERED: INSULIN GLARGINE,HUM.REC.ANLOG 1,000 UNIT/10 ML VIAL SUBCUT ONE ×2 (17:36→18:00)
[2019-12-24] MEDS ORDERED: KETOROLAC TROMETHAMINE INJ/PF 30 MG/1 ML SDV IV PRN (17:36)
[2019-12-24] MEDS: PANTOPRAZOLE SODIUM 40 MG TABLET.DR PO SCH (17:37)
[2019-12-24] MEDS: CYCLOBENZAPRINE HCL 10 MG TABLET PO SCH (17:37)
[2019-12-24] MEDS ORDERED: PIPERACILLIN SODIUM/TAZOBACTAM 3.375 GM in NORMAL SALINE 100 ML IV SCH (18:00)
[2019-12-24] MEDS: PIPERACILLIN SODIUM/TAZOBACTAM 3.375 GM in NORMAL SALINE 100 ML IV SCH (22:19)
[2019-12-24] MEDS: DULOXETINE HCL 30 MG CAPSULE.DR PO SCH (22:20)
[2019-12-24] MEDS: ATORVASTATIN CALCIUM 20 MG TABLET PO SCH (22:21)
[2019-12-24] MEDS: CLONAZEPAM 1 MG TABLET PO SCH (22:21)
[2019-12-24] MEDS: VANCOMYCIN HCL 500 MG in DEXTROSE 5%-WATER 100 ML IV SCH (22:22)
[2019-12-25] MEDS: ACETAMINOPHEN 325 MG TABLET PO PRN (01:18)
[2019-12-25] MEDS: INSULIN LISPRO 100 UNIT/ML 3 ML VIAL SUBCUT SCH ×5 (01:25→18:46)
[2019-12-25 05:52] LABS: HEMATOCRIT 26.9 % (36.0-47.0); HEMOGLOBIN 8.5 g/dL (12.0-15.5); MEAN CORPUSCULAR HGB CONC 31.6 g/dL (32.0-36.0); MEAN CORPUSCULAR VOLUME 70 fl (80-97); PLATELET COUNT 276 10^3/uL (150-450); RED BLOOD COUNT 3.86 10^6/uL (3.72-5.28); RED CELL DISTRIBUTION WIDTH 19.3 % (11.5-14.0); WHITE BLOOD COUNT 22.2 10^3/uL (4.0-10.5)
[2019-12-25] MEDS: LEVOTHYROXINE SODIUM 0.05 MG TABLET PO SCH (05:58)
[2019-12-25] MEDS: PIPERACILLIN SODIUM/TAZOBACTAM 3.375 GM in NORMAL SALINE 100 ML IV SCH ×2 (05:58→13:32)
[2019-12-25] MEDS: HEPARIN SOD (PORCINE) 5,000 UNIT/ML 1 ML VIAL SUBCUT SCH ×3 (05:59→22:23)
[2019-12-25 06:11] LABS: ANION GAP 8 (5-19); BLOOD UREA NITROGEN 14 mg/dL (7-20); CARBON DIOXIDE 23 mmol/L (22-30); CHLORIDE 106 mmol/L (98-107); IRON(TIBC) 16.1 ug/dL (37-170); POTASSIUM 3.1 mmol/L (3.6-5.0)
[2019-12-25 06:30] LABS: ABSOLUTE LYMPHOCYTES# (MANUAL) 1.1 10^3/uL (0.5-4.7); ABSOLUTE MONOCYTES # (MANUAL) 1.6 10^3/uL (0.1-1.4); BAND NEUTROPHILS % (MANUAL) 6 % (3-5); BASOPHILS % (MANUAL) 0 % (0-2); EOSINOPHILS % (MANUAL) 0 % (0-6); LYMPHOCYTES % (MANUAL) 5 % (13-45); MONOCYTES % (MANUAL) 7 % (3-13); SEGMENTED NEUTROPHILS % (MAN) 82 % (42-78); TOTAL CELLS COUNTED 100
[2019-12-25 06:32] LABS: HYPOCHROMASIA 1+; POLYCHROMASIA 1+; TOXIC GRANULATION SLIGHT
[2019-12-25 06:33] LABS: ANISOCYTOSIS 2+
[2019-12-25 06:34] LABS: OVALOCYTES SLIGHT; POIKILOCYTOSIS SLIGHT; SCHISTOCYTES SLIGHT
[2019-12-25 06:35] LABS: PLATELET COMMENT ADEQUATE
[2019-12-25 07:28] LABS: GLUCOSE 37 mg/dL (75-110)
[2019-12-25] MEDS: PREDNISONE 5 MG TABLET PO SCH (08:16)
[2019-12-25] MEDS ORDERED: MAGNESIUM OXIDE 400 MG TABLET PO ONE (09:00)
[2019-12-25] MEDS: CYCLOBENZAPRINE HCL 10 MG TABLET PO SCH ×2 (09:59→17:47)
[2019-12-25] MEDS: DULOXETINE HCL 30 MG CAPSULE.DR PO SCH ×2 (09:59→22:23)
[2019-12-25] MEDS: METHADONE HCL 10 MG TABLET PO SCH (09:59)
[2019-12-25] MEDS: POTASSIUM CHLORIDE 10 MEQ TABLET.ER PO SCH ×2 (09:59→22:22)
[2019-12-25] MEDS: VANCOMYCIN HCL 500 MG in DEXTROSE 5%-WATER 100 ML IV SCH (09:59)
[2019-12-25] MEDS: PANTOPRAZOLE SODIUM 40 MG TABLET.DR PO SCH ×2 (09:59→17:47)
--- NOTE | 2019-12-25 14:32 | PDOC PROGRESS REPORT ---
Subjective Progress Note for:: 12/25/19 Subjective:: Patient continues to feel fatigued. Abdominal pain is improved. Has not been able to eat much because his throat has felt very sore. Denies shortness of breath this morning. Denies joint pain or presence of any wounds. Reason For Visit: NK Physical Exam Vital Signs: Temp Pulse Resp BP Pulse Ox 98.4 F 94 16 163/82 H 99 12/25/19 12:18 12/25/19 12:18 12/25/19 12:18 12/25/19 12:18 12/25/19 12:18 Intake & Output 12/24/19 12/25/19 12/26/19 06:59 06:59 06:59 Intake Total 3112 300 Balance 3112 300 Weight 70.7 kg 70.7 kg General appearance: PRESENT: no acute distress, cooperative Neck exam: ABSENT: JVD Respiratory exam: PRESENT: clear to auscultation grayson, unlabored. ABSENT: tachypnea, wheezes Cardiovascular exam: PRESENT: RRR, +S1, +S2. ABSENT: systolic murmur, tachycardia GI/Abdominal exam: PRESENT: normal bowel sounds, soft, tenderness. ABSENT: distended, firm, guarding, rebound, rigid Neurological exam: PRESENT: alert, awake Psychiatric exam: ABSENT: agitated, anxious Skin exam: PRESENT: intact, other - Perform thorough skin survey no evidence of lesions or cellulitis.. ABSENT: rash Results Laboratory Results: 12/25/19 04:50 12/25/19 04:50 12/24/19 12/24/19 12/24/19 15:54 15:54 20:31 WBC RBC Hgb Hct MCV MCH MCHC RDW Plt Count Seg Neutrophils % Retic Count (auto) Sodium 132.3 L Potassium 3.9 Chloride 100 Carbon Dioxide 22 Anion Gap 10 BUN 19 Creatinine 1.06 Est GFR ( Amer) > 60 Glucose 202 H Lactic Acid 3.0 H 1.5 Calcium 8.2 L Magnesium Iron TIBC % Saturation Ferritin Vitamin B12 Folate 12/25/19 12/25/19 04:50 04:50 WBC 22.2 H RBC 3.86 Hgb 8.5 L Hct 26.9 L MCV 70 L MCH 22.0 L MCHC 31.6 L RDW 19.3 H Plt Count 276 Seg Neutrophils % Not Reportable Retic Count (auto) 1.80 Sodium 136.7 L Potassium 3.1 L Chloride 106 Carbon Dioxide 23 Anion Gap 8 BUN 14 Creatinine 1.10 Est GFR ( Amer) > 60 Glucose 37 L* Lactic Acid Calcium 8.0 L Magnesium 1.4 L Iron 16.1 L TIBC 229 L % Saturation 7 Ferritin 40.20 Vitamin B12 > 1000.0 H Folate 17.20 12/24/19 16:30 Blood Blood Culture (PCR) - Final Strep Agalactiae - (Group B) 12/24/19 15:54 Blood Blood Culture (PCR) - Final Strep Agalactiae - (Group B) 12/24/19 10:30 Clean Catch Midstream Urine Culture - Final Group B Beta Streptococcus Impressions: Chest X-Ray 12/24/19 00:00 IMPRESSION: Scoliosis. No acute cardiopulmonary finding. Assessment and Plan - Diagnosis (1) Bacteremia due to group B Streptococcus Is this a current diagnosis for this admission?: Yes Plan: Likely source seems to be UTI though urinalysis was only weakly positive, urine culture has just become positive for group B strep and patient has lower abdominal tenderness. Chest x-ray negative. Thorough skin survey by me shows no cellulitis or wounds. Check throat culture given sore throat. CT abdomen pelvis done to evaluate abd pain-results pending [unfortunately patient was unable to drink contrast and is allergic to IV dye]. Change antibiotics to ceftriaxone IV. Patient will likely require 14 days of IV therapy once blood cultures become negative. Repeat blood cultures tomorrow morning. (2) Severe sepsis with acute organ dysfunction due to group B Streptococcus Is this a current diagnosis for this admission?: Yes Plan: Noted to have severe sepsis yesterday after admission as she started spiking high fevers, accompanied by RICHARD, leukocytosis and developed metabolic encephalopathy. Lactic acidosis seems to have resolved with aggressive fluid challenge and antibiotics and encephalopathy has improved. (3) HHNC (hyperglycemic hyperosmolar nonketotic coma) Is this a current diagnosis for this admission?: Yes Plan: Resolved (4) Insulin dependent diabetes mellitus Is this a current diagnosis for this admission?: Yes Plan: Patient states that she takes Lantus 21 units at bedtime. A1c is 12.7 indicating poor control of diabetes. Patient was hypoglycemic this morning after receiving Lantus 20 units last night and not really eating. Patient has not eating much today but given her type 1 diabetes, I will decrease her Lantus nightly dose to 8 units and cover with sliding scale as needed. (5) RICHARD (acute kidney injury) Is this a current diagnosis for this admission?: Yes Plan: Resolved (6) Iron deficiency anemia Qualifiers: Iron deficiency anemia type: unspecified iron deficiency Qualified Code(s): D50.9 - Iron deficiency anemia, unspecified Is this a current diagnosis for this admission?: Yes Plan: Iron studies reviewed. Ferrous sulfate - Time Time Spent with patient: 15-24 minutes
[2019-12-25] MEDS ORDERED: CEFTRIAXONE 2 GM/D5W RTU 2 GM/50 ML RTUPB IV SCH (15:00)
--- NOTE | 2019-12-25 15:05 | RADIOLOGY REPORT (SQ) ---
EXAM DESCRIPTION: CT ABD/PELVIS NO ORAL OR IV COMPLETED DATE/TIME: 12/25/2019 2:08 pm REASON FOR STUDY: occult source of strp bacteremia, abd pain COMPARISON: None. TECHNIQUE: CT scan of the abdomen and pelvis performed with oral contrast and no intravenous contras t. Images reviewed with lung, soft tissue, and bone windows. Reconstructed coronal and sagittal MPR i mages reviewed. All images stored on PACS. All CT scanners at this facility use dose modulation, iterative reconstruction, and/or weight based d osing when appropriate to reduce radiation dose to as low as reasonably achievable (ALARA). [facility]: Dose Right [facility]: CareDose [facility]: Dose Right [facility]: Teradose 4D [facility]: Kira Talent RADIATION DOSE: CT Rad equipment meets quality standard of care and radiation dose reduction techniq ues were employed. CTDIvol: 8.5 mGy. DLP: 484 mGy-cm. mGy. LIMITATIONS: None. FINDINGS: LOWER CHEST: Trace right pleural effusion. NON-CONTRASTED LIVER, SPLEEN, ADRENALS: Evaluation limited by lack of IV contrast. No identified sign ificant masses. PANCREAS: No masses. No peripancreatic inflammatory changes. GALLBLADDER: No identified stones by CT criteria. No inflammatory changes to suggest cholecystitis. RIGHT KIDNEY AND URETER: No suspicious masses. Assessment limited by lack of IV contrast. No signif icant calcifications. No hydronephrosis or hydroureter. LEFT KIDNEY AND URETER: No suspicious masses. Assessment limited by lack of IV contrast. No signifi cant calcifications. No hydronephrosis or hydroureter. AORTA AND RETROPERITONEUM: No aneurysm. No retroperitoneal masses or adenopathy. BOWEL AND PERITONEAL CAVITY: No obvious masses or inflammatory changes. No free fluid. APPENDIX: Not visualized. PELVIS, BLADDER, AND ABDOMINAL WALL: Transplant kidney right lower quadrant. No pelvic mass. BONES: Nothing acute. Severe scoliosis. OTHER: No other significant finding. IMPRESSION: No acute findings. TECHNICAL DOCUMENTATION: JOB ID: [id number] Quality ID # [id number]: Final reports with documentation of one or more dose reduction techniques (e.g., Au tomated exposure control, adjustment of the mA and/or kV according to patient size, use of iterative reconstruction technique) 2010 [employer]- All Rights Reserved Reading location - IP/workstation name: [email or web address]
[2019-12-25] MEDS: NORMAL SALINE 1000 ML 1,000 ML IV PRN ×2 (15:06→22:30)
[2019-12-25] MEDS ORDERED: CEFAZOLIN 2 GM/D5W RTU 2 GM/50 ML RTUPB IV SCH (18:00)
[2019-12-25] MEDS: INSULIN GLARGINE,HUM.REC.ANLOG 1,000 UNIT/10 ML VIAL SUBCUT SCH (22:20)
[2019-12-25] MEDS: ATORVASTATIN CALCIUM 20 MG TABLET PO SCH (22:23)
[2019-12-25] MEDS: CLONAZEPAM 1 MG TABLET PO SCH (22:23)
[2019-12-26] MEDS: INSULIN LISPRO 100 UNIT/ML 3 ML VIAL SUBCUT SCH ×4 (01:36→17:25)
[2019-12-26] MEDS: ONDANSETRON HCL INJ/PF 4 MG/2 ML SDV IV PRN ×2 (01:39→10:28)
[2019-12-26 05:34] LABS: HEMATOCRIT 25.5 % (36.0-47.0); MEAN CORPUSCULAR HEMOGLOBIN 21.8 pg (27.0-33.4); MEAN CORPUSCULAR HGB CONC 30.9 g/dL (32.0-36.0); MEAN CORPUSCULAR VOLUME 71 fl (80-97); PLATELET COUNT 317 10^3/uL (150-450); RED CELL DISTRIBUTION WIDTH 20.1 % (11.5-14.0)
[2019-12-26 05:42] LABS: ALBUMIN 2.8 g/dL (3.5-5.0); ALKALINE PHOSPHATASE 137 U/L (38-126); ANION GAP 9 (5-19); ASPARTATE AMINO TRANSFERASE 16 U/L (14-36); BILIRUBIN,DIRECT 0.3 mg/dL (0.0-0.4); BILIRUBIN,TOTAL 0.3 mg/dL (0.2-1.3); BLOOD UREA NITROGEN 12 mg/dL (7-20); CALCIUM 8.2 mg/dL (8.4-10.2); CARBON DIOXIDE 20 mmol/L (22-30); CHLORIDE 103 mmol/L (98-107); GLUCOSE 175 mg/dL (75-110); POTASSIUM 3.9 mmol/L (3.6-5.0); TOTAL PROTEIN 6.1 g/dL (6.3-8.2)
[2019-12-26 06:11] LABS: ABSOLUTE LYMPHOCYTES# (MANUAL) 1.4 10^3/uL (0.5-4.7); ABSOLUTE MONOCYTES # (MANUAL) 1.4 10^3/uL (0.1-1.4); ANISOCYTOSIS 2+; BAND NEUTROPHILS % (MANUAL) 1 % (3-5); BASOPHILS % (MANUAL) 0 % (0-2); EOSINOPHILS % (MANUAL) 0 % (0-6); HYPOCHROMASIA 1+; LYMPHOCYTES % (MANUAL) 6 % (13-45); MONOCYTES % (MANUAL) 6 % (3-13); SEGMENTED NEUTROPHILS % (MAN) 87 % (42-78); TOTAL CELLS COUNTED 100
[2019-12-26 06:12] LABS: PLATELET COMMENT ADEQUATE
[2019-12-26 06:13] LABS: OVALOCYTES SLIGHT; POLYCHROMASIA SLIGHT; TARGET CELLS SLIGHT; TEAR DROP CELLS SLIGHT
[2019-12-26 06:15] LABS: HEMOGLOBIN 7.9 g/dL (12.0-15.5)
[2019-12-26] MEDS: HEPARIN SOD (PORCINE) 5,000 UNIT/ML 1 ML VIAL SUBCUT SCH ×3 (06:35→21:36)
[2019-12-26] MEDS: LEVOTHYROXINE SODIUM 0.05 MG TABLET PO SCH (06:37)
[2019-12-26] MEDS ORDERED: NORMAL SALINE 1000 ML 1,000 ML IV ONE (09:30)
[2019-12-26] MEDS ORDERED: VANCOMYCIN HCL 1,250 MG in DEXTROSE 5%-WATER 250 ML IV SCH (10:00)
[2019-12-26] MEDS ORDERED: VANCOMYCIN HCL INJ 1000 MG VIAL IV SCH (10:00)
[2019-12-26] MEDS: CYCLOBENZAPRINE HCL 10 MG TABLET PO SCH ×2 (10:32→17:26)
[2019-12-26] MEDS: FERROUS SULFATE LIQUID 300 MG/5 ML UDC PO SCH (10:32)
[2019-12-26] MEDS: METHADONE HCL 10 MG TABLET PO SCH (10:32)
[2019-12-26] MEDS: PREDNISONE 5 MG TABLET PO SCH (10:32)
[2019-12-26] MEDS: DULOXETINE HCL 30 MG CAPSULE.DR PO SCH ×2 (10:32→21:36)
[2019-12-26] MEDS: PANTOPRAZOLE SODIUM 40 MG TABLET.DR PO SCH ×2 (10:32→17:26)
[2019-12-26] MEDS ORDERED: BENZOCAINE/MENTHOL SORE THROAT LOZENGE BUCCAL PRN (10:46)
[2019-12-26 10:47] LABS: VANCOMYCIN,TROUGH 5.9 ug/mL (5.0-20.0)
--- NOTE | 2019-12-26 11:05 | PDOC PROGRESS REPORT ---
Subjective Progress Note for:: 12/26/19 Subjective:: Patient feels lightheaded this morning when standing up to go to the bathroom and had to be eased down slowly to the ground. She continues to experience some nausea. Does have some difficulty swallowing due to the soreness in her throat. Still has some abdominal pain but abdominal pain is somewhat chronic for patient for which she takes methadone according to her mom. Had a bowel movement yesterday. Denies shortness of breath. Reason For Visit: HHNK Physical Exam Vital Signs: Temp Pulse Resp BP Pulse Ox 99.6 F 109 H 20 147/75 H 96 12/26/19 08:53 12/26/19 08:53 12/26/19 08:53 12/26/19 08:53 12/26/19 08:53 Intake & Output 12/25/19 12/26/19 12/27/19 06:59 06:59 06:59 Intake Total 3112 4472 Balance 3112 4472 Weight 70.7 kg 69.9 kg General appearance: PRESENT: no acute distress, cooperative Throat exam: PRESENT: other - No oropharyngeal erythema noted. ABSENT: tonsill ar erythema, tonsillar exudate Neck exam: ABSENT: JVD Respiratory exam: PRESENT: clear to auscultation grayson, unlabored. ABSENT: tachypnea, wheezes Cardiovascular exam: PRESENT: +S1, +S2, systolic murmur, tachycardia. ABSENT: irregular rhythm GI/Abdominal exam: PRESENT: soft, tenderness - LLQ. ABSENT: distended, firm, guarding, rebound, rigid Neurological exam: PRESENT: alert, awake Results Laboratory Results: 12/26/19 05:01 12/26/19 12/26/19 05:01 05:01 WBC 24.0 H RBC 3.60 L Hgb 7.9 L Hct 25.5 L MCV 71 L MCH 21.8 L MCHC 30.9 L RDW 20.1 H Plt Count 317 Seg Neutrophils % Not Reportable Sodium 131.8 L Potassium 3.9 Chloride 103 Carbon Dioxide 20 L Anion Gap 9 BUN 12 Creatinine 1.05 Est GFR ( Amer) > 60 Glucose 175 H Calcium 8.2 L Total Bilirubin 0.3 AST 16 Alkaline Phosphatase 137 H Total Protein 6.1 L Albumin 2.8 L 12/24/19 15:54 Blood Blood Culture (PCR) - Final Strep Agalactiae - (Group B) 12/24/19 15:54 Blood Blood Culture - Final Group B Beta Streptococcus 12/24/19 16:30 Blood Blood Culture (PCR) - Final Strep Agalactiae - (Group B) 12/24/19 16:30 Blood Blood Culture - Final Group B Beta Streptococcus 12/24/19 10:30 Clean Catch Midstream Urine Culture - Final Group B Beta Streptococcus Impressions: Chest X-Ray 12/24/19 00:00 IMPRESSION: Scoliosis. No acute cardiopulmonary finding. Abdomen/Pelvis CT 12/25/19 00:00 IMPRESSION: No acute findings. Assessment and Plan - Diagnosis (1) Bacteremia due to group B Streptococcus Is this a current diagnosis for this admission?: Yes Plan: Likely source seems to be UTI though urinalysis was only weakly positive, urine culture growing group B strep. Chest x-ray negative. Thorough skin survey by me shows no cellulitis or wounds. CT abdomen pelvis to evaluate abd pain: unremarkable [unfortunately patient unable to drink contrast and states severe allergy to contrast]. Patient is still febrile and leukocytosis is worsening even though bandemia seems to be resolving. Blood cultures show susceptibility to ceftriaxone. Have increased ceftriaxone dose to twice daily dosing. We will give a bolus of normal saline today and encourage p.o. hydration. We will check TTE to evaluate murmur and evaluate for seeding on the heart valves in light of worsening leukocytosis and persistent fever. Patient will likely require 14 days of IV therapy once blood cultures become negative if TTE is negative. (2) Insulin dependent diabetes mellitus Is this a current diagnosis for this admission?: Yes Plan: Patient states that she takes Lantus 21 units at bedtime. A1c is 12.7 indicating poor control of diabetes. Hyperglycemic this morning after not being given her Lantus dose last night. Cover with sliding scale insulin. I will leave Lantus dose at half dose of 10 units nightly until patient starts eating better. (3) Sore throat Is this a current diagnosis for this admission?: Yes Plan: Limiting patient's food consumption. We will try some Cepacol lozenges to see if it helps. Throat culture obtained-result pending. Will have ENT evaluate tomorrow if no improvement as ENT is not available today. (4) Severe sepsis with acute organ dysfunction due to group B Streptococcus Is this a current diagnosis for this admission?: Yes Plan: Resolved at this time (5) Iron deficiency anemia Qualifiers: Iron deficiency anemia type: unspecified iron deficiency Qualified Code(s): D50.9 - Iron deficiency anemia, unspecified Is this a current diagnosis for this admission?: Yes Plan: Iron studies reviewed. Ferrous sulfate supplementation. Hemoglobin showing some downtrend but no evidence of bleeding currently. (6) Renal transplant recipient Is this a current diagnosis for this admission?: Yes Plan: Continue prednisone as an azathioprine (7) RICHARD (acute kidney injury) Is this a current diagnosis for this admission?: Yes Plan: Resolved (8) HHNC (hyperglycemic hyperosmolar nonketotic coma) Is this a current diagnosis for this admission?: Yes Plan: Resolved - Time Time Spent with patient: 15-24 minutes
[2019-12-26] MEDS: CEFTRIAXONE 2 GM/D5W RTU 2 GM/50 ML RTUPB IV SCH ×2 (12:50→21:37)
--- NOTE | 2019-12-26 13:22 | XCELERA REPORT ---
[address] [address] Transthoracic Echocardiogram Report Name: KE SMITH Age: 59 yrs Gender: Female : 1960 Patient Status: Inpatient Patient Location: [facility]A Study Date: 12/26/2019 10:17 AM Height: 62 in Weight: 154 lb BSA: 1.7 m2 Reason For Study: strep bacteremia,murmur, eval endocarditis Ordering Physician: MAHIN GIBSON Performed By: Tatiana Cobb Interpretation Summary STUDY QUALITY TECHICALLY ADEQUATE LEFT VENTRICLE: LV Systolic function: LVEF is felt to be within normal limits. Best estimate is approximately LVEF is 60 to 65%. LV Diastolic Function: Grade II diastolic dysfunction noted. Wall motion : No definite regional wall motion abnormalities are noted. Left ventricular chamber size : is within normal limit. Left ventricular wall thickness : is increased indicative of Mild LVH. RIGHT VENTRICLE: RV systolic function : is felt to be within normal limit. Right Ventricle Size : is within normal limits. LEFT ATRIUM size : is mildly dilated. RIGHT ATRIUM size : is within normal limit. INTER ATRIAL SEPTUM : No definite atrial septal defect noted however a small PFO could be missed. AORTIC ROOT : seems to be within normal limits. Ascending aorta is not well visualized. INFERIOR VENA CAVA: was not well visualized. VALVES: MITRAL VALVE : Leaflets are mildly thickened. Mobility seems to be within normal limits. Mitral Regurgitation : Trace mitral regurgitation is noted. Mitral Stenosis: No mitral stenosis noted. Mitral valve prolapse : none noted. AORTIC VALVE: seems to be trileaflet with mild thickening but adequate excursion. Aortic stenosis : No aortic stenosis noted. Aortic regurgitation : No aortic incompetence noted. TRICUSPID VALVE : mobility and structures within normal limit. Tricuspid stenosis : no tricuspid stenosis noted. Tricuspid regurgitation : Trace tricuspid regurgitation noted. Estimated RVSP : cannot be accurately commented upon but possibly at upper limit of normal. PULMONARY VALVE : was not well visualized but no significant abnormalities suspected. Pulmonary stenosis : no pulmonary stenosis noted. Pulmonary regurgitation : no significant pulmonary regurgitation noted. MASSES AND THROMBUS : No definite intracardiac thrombus or masses are noted. PERICARDIUM: No pericardial effusion was noted. IMPRESSION : 1. Normal LVEF. 2. Mild LVH noted 3. Grade II [mild] Diastolic Dysfunction noted. 4. No significant valvular stenosis or regurgitation noted. 5. LA is mildly dilated. MMode/2D Measurements & Calculations RVDd: 2.2 cm LVIDd: 3.7 cm FS: 37.8 % Ao root diam: 2.5 cm IVSd: 1.0 cm LVIDs: 2.3 cm EDV(Teich): 58.1 ml LVPWd: 0.94 cm ESV(Teich): 18.2 ml Ao root area: 4.8 cm2 EF(Teich): 68.7 % LVOT diam: 1.8 cm LVOT area: 2.5 cm2 Doppler Measurements & Calculations MV E max sonali: MV dec slope: Ao V2 max: LV V1 max P.9 cm/sec 566.6 cm/sec2 176.6 cm/sec 6.9 mmHg MV A max sonali: MV dec time: 0.19 secAo max PG: LV V1 max: 115.5 cm/sec 12.5 mmHg 131.0 cm/sec MV E/A: 0.95 EDIN(V,D): 1.8 cm2 PA V2 max: 77.9 cm/sec PA max P.4 mmHg : MAHIN GIBSON Shyamal
[2019-12-26] MEDS: ATORVASTATIN CALCIUM 20 MG TABLET PO SCH (21:36)
[2019-12-26] MEDS: CLONAZEPAM 1 MG TABLET PO SCH (21:36)
[2019-12-27] MEDS: INSULIN GLARGINE,HUM.REC.ANLOG 1,000 UNIT/10 ML VIAL SUBCUT SCH (00:11)
[2019-12-27] MEDS: INSULIN LISPRO 100 UNIT/ML 3 ML VIAL SUBCUT SCH ×5 (00:12→21:15)
[2019-12-27 05:36] LABS: HEMATOCRIT 27.2 % (36.0-47.0); HEMOGLOBIN 8.4 g/dL (12.0-15.5); MEAN CORPUSCULAR HGB CONC 30.8 g/dL (32.0-36.0); MEAN CORPUSCULAR VOLUME 71 fl (80-97); PLATELET COUNT 359 10^3/uL (150-450); RED BLOOD COUNT 3.81 10^6/uL (3.72-5.28); RED CELL DISTRIBUTION WIDTH 20.7 % (11.5-14.0); WHITE BLOOD COUNT 13.5 10^3/uL (4.0-10.5)
[2019-12-27 05:51] LABS: ALBUMIN 2.5 g/dL (3.5-5.0); ALKALINE PHOSPHATASE 136 U/L (38-126); ANION GAP 8 (5-19); ASPARTATE AMINO TRANSFERASE 13 U/L (14-36); BILIRUBIN,DIRECT 0.2 mg/dL (0.0-0.4); BILIRUBIN,TOTAL 0.2 mg/dL (0.2-1.3); BLOOD UREA NITROGEN 13 mg/dL (7-20); CALCIUM 8.5 mg/dL (8.4-10.2); CARBON DIOXIDE 21 mmol/L (22-30); CHLORIDE 106 mmol/L (98-107); GLUCOSE 270 mg/dL (75-110); POTASSIUM 4.4 mmol/L (3.6-5.0); TOTAL PROTEIN 5.5 g/dL (6.3-8.2)
[2019-12-27 06:03] LABS: ABSOLUTE LYMPHOCYTES# (MANUAL) 0.7 10^3/uL (0.5-4.7); ABSOLUTE MONOCYTES # (MANUAL) 0.3 10^3/uL (0.1-1.4); ANISOCYTOSIS 2+; BAND NEUTROPHILS % (MANUAL) 2 % (3-5); BASOPHILS % (MANUAL) 1 % (0-2); EOSINOPHILS % (MANUAL) 0 % (0-6); LYMPHOCYTES % (MANUAL) 5 % (13-45); MONOCYTES % (MANUAL) 2 % (3-13); SEGMENTED NEUTROPHILS % (MAN) 90 % (42-78); TOTAL CELLS COUNTED 100
[2019-12-27 06:05] LABS: HYPOCHROMASIA SLIGHT; PLATELET COMMENT ADEQUATE
[2019-12-27 06:07] LABS: OVALOCYTES SLIGHT
[2019-12-27 06:08] LABS: TARGET CELLS SLIGHT; TEAR DROP CELLS SLIGHT
[2019-12-27] MEDS: HEPARIN SOD (PORCINE) 5,000 UNIT/ML 1 ML VIAL SUBCUT SCH ×3 (06:37→21:02)
[2019-12-27] MEDS: LEVOTHYROXINE SODIUM 0.05 MG TABLET PO SCH (06:38)
[2019-12-27] MEDS: PREDNISONE 5 MG TABLET PO SCH (08:19)
[2019-12-27] MEDS ORDERED: INSULIN NPH (ISOPHANE), HUMAN 100 UNIT/ML 3 ML SUBCUT ONE (08:30)
[2019-12-27] MEDS: FERROUS SULFATE LIQUID 300 MG/5 ML UDC PO SCH (09:25)
[2019-12-27] MEDS: METHADONE HCL 10 MG TABLET PO SCH (09:28)
[2019-12-27] MEDS: CYCLOBENZAPRINE HCL 10 MG TABLET PO SCH ×2 (09:28→17:40)
[2019-12-27] MEDS: PANTOPRAZOLE SODIUM 40 MG TABLET.DR PO SCH ×2 (09:28→17:40)
[2019-12-27] MEDS: DULOXETINE HCL 30 MG CAPSULE.DR PO SCH ×2 (09:28→21:02)
[2019-12-27] MEDS: CEFTRIAXONE 2 GM/D5W RTU 2 GM/50 ML RTUPB IV SCH ×2 (09:29→21:03)
--- NOTE | 2019-12-27 10:18 | PDOC PROGRESS REPORT ---
Subjective Progress Note for:: 12/27/19 Subjective:: Patient denies any shortness of breath or chest pain today. Was able to eat very well yesterday. States that she feels a lot better today. Reason For Visit: HHNK Physical Exam Vital Signs: Temp Pulse Resp BP Pulse Ox 98.4 F 100 16 145/71 H 98 12/27/19 08:12 12/27/19 08:12 12/27/19 08:12 12/27/19 08:12 12/27/19 08:12 Intake & Output 12/26/19 12/27/19 12/28/19 06:59 06:59 06:59 Intake Total 4472 3791 50 Output Total 1300 Balance 4472 2491 50 Weight 69.9 kg 73.1 kg General appearance: PRESENT: no acute distress, cooperative Neck exam: ABSENT: JVD Respiratory exam: PRESENT: clear to auscultation grayson, unlabored. ABSENT: tachypnea, wheezes Cardiovascular exam: PRESENT: RRR, +S1, +S2. ABSENT: tachycardia GI/Abdominal exam: PRESENT: soft. ABSENT: rebound, rigid, tenderness Neurological exam: PRESENT: alert, awake, oriented to person, oriented to place, oriented to time Results Laboratory Results: 12/27/19 05:07 12/27/19 05:07 12/26/19 12/27/19 12/27/19 09:37 05:07 05:07 WBC 13.5 H RBC 3.81 Hgb 8.4 L Hct 27.2 L MCV 71 L MCH 22.0 L MCHC 30.8 L RDW 20.7 H Plt Count 359 Seg Neutrophils % Not Reportable Sodium 135.2 L Potassium 4.4 Chloride 106 Carbon Dioxide 21 L Anion Gap 8 BUN 13 Creatinine 1.00 1.07 Est GFR ( Amer) > 60 > 60 Glucose 270 H Calcium 8.5 Magnesium 1.6 Total Bilirubin 0.2 AST 13 L Alkaline Phosphatase 136 H Total Protein 5.5 L Albumin 2.5 L 12/25/19 11:55 Throat Throat Culture - Final C.albicans/C.dubliniensis Normal Penny 12/24/19 15:54 Blood Blood Culture (PCR) - Final Strep Agalactiae - (Group B) 12/24/19 15:54 Blood Blood Culture - Final Group B Beta Streptococcus 12/24/19 16:30 Blood Blood Culture (PCR) - Final Strep Agalactiae - (Group B) 12/24/19 16:30 Blood Blood Culture - Final Group B Beta Streptococcus Impressions: Chest X-Ray 12/24/19 00:00 IMPRESSION: Scoliosis. No acute cardiopulmonary finding. Abdomen/Pelvis CT 12/25/19 00:00 IMPRESSION: No acute findings. Assessment and Plan - Diagnosis (1) Bacteremia due to group B Streptococcus Is this a current diagnosis for this admission?: Yes Plan: Likely source seems to be UTI though urinalysis was only weakly positive, urine culture growing group B strep. Chest x-ray negative. Thorough skin survey by me shows no cellulitis or wounds. CT abdomen pelvis to evaluate abd pain: unremarkable [unfortunately patient unable to drink contrast and states severe allergy to contrast]. Patient is still febrile and leukocytosis is worsening even though bandemia seems to be resolving. Blood cultures show susceptibility to ceftriaxone. tte unremarkable Patient will likely require 14 days of IV therapy once blood cultures become negative. (2) Insulin dependent diabetes mellitus Is this a current diagnosis for this admission?: Yes Plan: Resume Lantus 21 units at bedtime. Give NPH 10 units now as patient is not eating and hyperglycemic. Continue sliding scale insulin (3) Sore throat Is this a current diagnosis for this admission?: Yes Plan: Cepacol lozenges. (4) Severe sepsis with acute organ dysfunction due to group B Streptococcus Is this a current diagnosis for this admission?: Yes Plan: Resolved at this time (5) Iron deficiency anemia Qualifiers: Iron deficiency anemia type: unspecified iron deficiency Qualified Code(s): D50.9 - Iron deficiency anemia, unspecified Is this a current diagnosis for this admission?: Yes Plan: Iron studies reviewed. Ferrous sulfate supplementation. Hemoglobin stabilizing (6) Renal transplant recipient Is this a current diagnosis for this admission?: Yes Plan: Continue prednisone as an azathioprine (7) RICHARD (acute kidney injury) Is this a current diagnosis for this admission?: Yes Plan: Resolved (8) HHNC (hyperglycemic hyperosmolar nonketotic coma) Is this a current diagnosis for this admission?: Yes Plan: Resolved - Time Time Spent with patient: Less than 15 minutes
--- NOTE | 2019-12-27 13:35 | RADIOLOGY REPORT (SQ) ---
EXAM DESCRIPTION: PICC INSERTION; U/S GUIDE FOR VASCULAR ACCESS; FLUORO/CV PLACEMENT COMPLETED DATE/TIME: 12/27/2019 1:21 pm REASON FOR STUDY: IV antibiotics for 10 days; IV ABX COMPARISON: None. FLUOROSCOPY TIME: 18 seconds of fluoroscopy was used. 1 images saved to PACS. TECHNIQUE: Fluoroscopic and ultrasound guided PICC placement. LIMITATIONS: None. PROCEDURE: After written consent and assessment were obtained, the patient was brought into the fluo roscopy room and placed supine on the table. Ultrasound evaluation of potential access sites were per formed. After successfully identifying a patent right basilic vein, the right arm was prepped and yobani ped in a sterile fashion along with the ultrasound probe. The entry site was anesthetized with 1% lid ocaine. A 21 gauge 7 cm needle was advanced through the skin and into the basilic vein under live ult rasound guidance. An ultrasound image was saved to PACS confirming access site. A .018 guide wire w as then inserted through the needle and into the venous system. The needle was then removed and an 11 blade scalpel was used to make a 1cm skin incision. A 5 fr peel-away sheath was advanced over the w prema and into the venous system. A measurement was then made using the existing wire and live fluorosc opic guidance. The wire was then removed and trimmed. The PICC was advanced through the peel-away she ath and into the venous system. The peel-away sheath was removed and the catheter was adhered to the patients arm with a stat lock. The catheter was then aspirated and flushed and a sterile bandage was placed over the access site. A fluoroscopic spot image was saved to PACS confirming the catheter tip within the superior vena cava. IMPRESSION: SUCCESSFUL PLACEMENT OF A 5 FR DUAL LUMEN 37 CM PICC IN THE RIGHT BASILIC VEIN. COMMENT: Patient medication list reviewed: Yes- Quality ID# [id number]:Eligible professional attests to doc umenting in the medical record they obtained, updated, or reviewed the patient's current medications. . Quality ID 145: Final reports for procedures using fluoroscopy that document radiation exposure yusef krysten, or exposure time and number of fluorographic images (if radiation exposure indices are not avail able) Quality ID #76: The patient was prepped and draped using maximum sterile barrier technique including cap, mask, sterile gown, sterile gloves, a large sterile sheet, hand hygiene, and 2% Chlorhexidine fo r cutaneous antisepsis. When ultrasound is used, sterile ultrasound techniques are followed requiring sterile gel and sterile probes. TECHNICAL DOCUMENTATION: JOB ID: [id number] 2010 [employer]- All Rights Reserved rev-02/16 Reading location - IP/workstation name: [email or web address]
[2019-12-27] MEDS ORDERED: NORMAL SALINE 10 ML SDV (AFTER EACH USE) IV PRN (14:00)
[2019-12-27] MEDS ORDERED: NORMAL SALINE 1000 ML 1,000 ML IV ONE (17:06)
[2019-12-27] MEDS ORDERED: INSULIN REG, HUMAN 100 UNIT/ML 3 ML VIAL (PYX) IV ONE (17:15)
[2019-12-27] MEDS: CLONAZEPAM 1 MG TABLET PO SCH (21:02)
[2019-12-27] MEDS: ATORVASTATIN CALCIUM 20 MG TABLET PO SCH (21:02)
[2019-12-27] MEDS: NORMAL SALINE 10 ML SDV (SCHEDULED) IV SCH (21:03)
[2019-12-27] MEDS ORDERED: INSULIN GLARGINE,HUM.REC.ANLOG 1,000 UNIT/10 ML VIAL SUBCUT SCH ×2 (22:00)
[2019-12-28] MEDS: LEVOTHYROXINE SODIUM 0.05 MG TABLET PO SCH (05:57)
[2019-12-28] MEDS: HEPARIN SOD (PORCINE) 5,000 UNIT/ML 1 ML VIAL SUBCUT SCH ×3 (05:57→22:26)
[2019-12-28 07:21] LABS: ALBUMIN 2.4 g/dL (3.5-5.0); ALKALINE PHOSPHATASE 119 U/L (38-126); ANION GAP 5 (5-19); ASPARTATE AMINO TRANSFERASE 12 U/L (14-36); BILIRUBIN,TOTAL 0.1 mg/dL (0.2-1.3); BLOOD UREA NITROGEN 10 mg/dL (7-20); CALCIUM 8.6 mg/dL (8.4-10.2); CARBON DIOXIDE 25 mmol/L (22-30); CHLORIDE 107 mmol/L (98-107); GLUCOSE 202 mg/dL (75-110); POTASSIUM 4.3 mmol/L (3.6-5.0); TOTAL PROTEIN 5.2 g/dL (6.3-8.2)
[2019-12-28] MEDS: ONDANSETRON HCL INJ/PF 4 MG/2 ML SDV IV PRN (07:45)
[2019-12-28] MEDS: PREDNISONE 5 MG TABLET PO SCH (07:45)
[2019-12-28 08:02] LABS: HEMATOCRIT 24.5 % (36.0-47.0); MEAN CORPUSCULAR HEMOGLOBIN 22.8 pg (27.0-33.4); MEAN CORPUSCULAR VOLUME 71 fl (80-97); PLATELET COUNT 405 10^3/uL (150-450); RED BLOOD COUNT 3.44 10^6/uL (3.72-5.28); RED CELL DISTRIBUTION WIDTH 20.9 % (11.5-14.0); WHITE BLOOD COUNT 10.4 10^3/uL (4.0-10.5)
[2019-12-28 08:16] LABS: HEMOGLOBIN 7.8 g/dL (12.0-15.5)
[2019-12-28] MEDS ORDERED: MAGNESIUM SULFATE/D5W 1 GM/100 ML RTUPB IV ONE (08:30)
[2019-12-28 08:35] LABS: ABSOLUTE LYMPHOCYTES# (MANUAL) 0.8 10^3/uL (0.5-4.7); BAND NEUTROPHILS % (MANUAL) 1 % (3-5); BASOPHILS % (MANUAL) 0 % (0-2); EOSINOPHILS % (MANUAL) 2 % (0-6); LYMPHOCYTES % (MANUAL) 8 % (13-45); METAMYELOCYTES % (MANUAL) 1 % (0-1); MONOCYTES % (MANUAL) 10 % (3-13); SEGMENTED NEUTROPHILS % (MAN) 78 % (42-78); TOTAL CELLS COUNTED 100
[2019-12-28 08:36] LABS: ANISOCYTOSIS 2+; PLATELET COMMENT ADEQUATE; POLYCHROMASIA SLIGHT; TARGET CELLS 1+; TOXIC GRANULATION 1+
--- NOTE | 2019-12-28 09:11 | PDOC PROGRESS REPORT ---
Subjective Progress Note for:: 12/28/19 Subjective:: 12/28/2019-no acute events in the last 24 hours. Afebrile. Complaining of nausea. Hemoglobin A1c is 12.7. Serum magnesium is 1.5 to give IV magnesium 1 g. Hemoglobin is 7.8 it is fluctuating between 7.8-8.4. Complaining of nausea this morning receiving Zofran. Reason For Visit: HHNK Physical Exam Vital Signs: Temp Pulse Resp BP Pulse Ox 98.5 F 94 16 147/80 H 95 12/28/19 07:54 12/28/19 07:54 12/28/19 07:54 12/28/19 07:54 12/28/19 07:54 Intake & Output 12/27/19 12/28/19 12/29/19 06:59 06:59 06:59 Intake Total 3791 1677 Output Total 1300 Balance 2491 1677 Weight 73.1 kg 75.2 kg General appearance: PRESENT: no acute distress, obese Head exam: PRESENT: atraumatic Eye exam: PRESENT: conjunctiva pale, PERRLA Mouth exam: PRESENT: dry mucosa Teeth exam: PRESENT: poor dentation Neck exam: ABSENT: carotid bruit, JVD, lymphadenopathy, thyromegaly Respiratory exam: PRESENT: clear to auscultation grayson. ABSENT: rales, rhonchi, wheezes Cardiovascular exam: PRESENT: RRR. ABSENT: diastolic murmur, rubs, systolic murmur GI/Abdominal exam: PRESENT: normal bowel sounds, soft. ABSENT: distended, gua rding, mass, organolmegaly, rebound, tenderness Rectal exam: PRESENT: deferred Extremities exam: PRESENT: full ROM. ABSENT: calf tenderness, clubbing, pedal edema Neurological exam: PRESENT: alert, awake, oriented to person, oriented to place, oriented to time, oriented to situation, CN II-XII grossly intact. ABSENT: dina r sensory deficit Psychiatric exam: PRESENT: appropriate affect, normal mood. ABSENT: homicidal ideation, suicidal ideation Results Laboratory Results: 12/28/19 07:20 12/28/19 06:32 12/28/19 12/28/19 06:32 07:20 WBC 10.4 RBC 3.44 L Hgb 7.8 L Hct 24.5 L MCV 71 L MCH 22.8 L MCHC 32.0 RDW 20.9 H Plt Count 405 Seg Neutrophils % Not Reportable Sodium 137.3 Potassium 4.3 Chloride 107 Carbon Dioxide 25 Anion Gap 5 BUN 10 Creatinine 1.06 Est GFR ( Amer) > 60 Glucose 202 H Calcium 8.6 Magnesium 1.5 L Total Bilirubin 0.1 L AST 12 L Alkaline Phosphatase 119 Total Protein 5.2 L Albumin 2.4 L Impressions: Chest X-Ray 12/24/19 00:00 IMPRESSION: Scoliosis. No acute cardiopulmonary finding. Abdomen/Pelvis CT 12/25/19 00:00 IMPRESSION: No acute findings. Guidance Fluoroscopy 12/27/19 00:00 IMPRESSION: SUCCESSFUL PLACEMENT OF A 5 FR DUAL LUMEN 37 CM PICC IN THE RIGHT BASILIC VEIN. Interventional Vascular Procedure 12/27/19 00: IMPRESSION: SUCCESSFUL PLACEMENT OF A 5 FR DUAL LUMEN 37 CM PICC IN THE RIGHT BASILIC VEIN. PICC Line Insertion 12/27/19 00:00 IMPRESSION: SUCCESSFUL PLACEMENT OF A 5 FR DUAL LUMEN 37 CM PICC IN THE RIGHT BASILIC VEIN. Assessment and Plan - Diagnosis (1) Bacteremia due to group B Streptococcus Is this a current diagnosis for this admission?: Yes Plan: Likely source seems to be UTI though urinalysis was only weakly positive, urine culture growing group B strep. Chest x-ray negative. Thorough skin survey by me shows no cellulitis or wounds. CT abdomen pelvis to evaluate abd pain: unremarkable [unfortunately patient unable to drink contrast and states severe allergy to contrast]. Patient is still febrile and leukocytosis is worsening even though bandemia seems to be resolving. Blood cultures show susceptibility to ceftriaxone. tte unremarkable Patient will likely require 14 days of IV therapy once blood cultures become negative. 12/29/2019-patient is receiving IV ceftriaxone for group B streptococcus bacteremia. Plan is to continue IV antibiotic therapy for 14 days once the blood cultures are negative. Repeat blood cultures from 12/25 no growth so far. (2) Insulin dependent diabetes mellitus Is this a current diagnosis for this admission?: No Plan: Resume Lantus 21 units at bedtime. Give NPH 10 units now as patient is not eating and hyperglycemic. Continue sliding scale insulin 12/28/2019-latest blood sugar is 202, hemoglobin A1c is 12.7. Plan is to change the Lantus to 15 units twice a day and to continue insulin sliding scale before meals and at bedtime. Diet exercise weight loss lifestyle modifications discussed with the patient. Dietary consult will be requested. (3) Severe sepsis with acute organ dysfunction due to group B Streptococcus Is this a current diagnosis for this admission?: Yes Plan: Resolved at this time (4) Iron deficiency anemia Qualifiers: Iron deficiency anemia type: unspecified iron deficiency Qualified Code(s): D50.9 - Iron deficiency anemia, unspecified Is this a current diagnosis for this admission?: No Plan: Iron studies reviewed. Ferrous sulfate supplementation. Hemoglobin stabilizing 12/28/2019-latest hemoglobin is 7.8. (5) Renal transplant recipient Is this a current diagnosis for this admission?: No Plan: Continue prednisone as an azathioprine (6) HHNC (hyperglycemic hyperosmolar nonketotic coma) Is this a current diagnosis for this admission?: Yes Plan: Resolved
[2019-12-28] MEDS ORDERED: DEXTROSE 50%-WATER SYRINGE 12.5 GM/25 ML DOSE IV PRN (09:30)
[2019-12-28] MEDS ORDERED: GLUCAGON,HUMAN RECOMB 1 MG INJ IM PRN (09:30)
[2019-12-28] MEDS ORDERED: DEXTROSE 40% GEL 15 GM TUBE X 2 PO PRN (09:30)
[2019-12-28] MEDS ORDERED: DEXTROSE 40% GEL 15 GM TUBE PO PRN (09:30)
[2019-12-28] MEDS ORDERED: DEXTROSE 50%-WATER SYRINGE 25 GM/50 ML DOSE IV PRN (09:30)
[2019-12-28] MEDS ORDERED: INSULIN GLARGINE,HUM.REC.ANLOG 1,000 UNIT/10 ML VIAL SUBCUT SCH ×2 (10:00)
[2019-12-28] MEDS: INSULIN LISPRO 100 UNIT/ML 3 ML VIAL SUBCUT SCH ×7 (10:49→22:27)
[2019-12-28] MEDS: CYCLOBENZAPRINE HCL 10 MG TABLET PO SCH ×2 (10:53→17:12)
[2019-12-28] MEDS: METHADONE HCL 10 MG TABLET PO SCH (10:53)
[2019-12-28] MEDS: DULOXETINE HCL 30 MG CAPSULE.DR PO SCH ×2 (10:53→22:27)
[2019-12-28] MEDS: PANTOPRAZOLE SODIUM 40 MG TABLET.DR PO SCH ×2 (10:54→17:12)
[2019-12-28] MEDS: CEFTRIAXONE 2 GM/D5W RTU 2 GM/50 ML RTUPB IV SCH ×2 (10:56→22:29)
[2019-12-28] MEDS: FERROUS SULFATE LIQUID 300 MG/5 ML UDC PO SCH (11:02)
[2019-12-28] MEDS: AZATHIOPRINE 50 MG TABLET PO SCH ×2 (11:02→14:18)
[2019-12-28] MEDS: INSULIN GLARGINE,HUM.REC.ANLOG 1,000 UNIT/10 ML VIAL SUBCUT SCH ×2 (12:10→17:11)
[2019-12-28] MEDS: NORMAL SALINE 10 ML SDV (SCHEDULED) IV SCH ×2 (12:14→22:28)
[2019-12-28] MEDS: ATORVASTATIN CALCIUM 20 MG TABLET PO SCH (22:27)
[2019-12-28] MEDS: CLONAZEPAM 1 MG TABLET PO SCH (22:27)
[2019-12-29] MEDS: ACETAMINOPHEN 325 MG TABLET PO PRN (01:23)
[2019-12-29] MEDS: HEPARIN SOD (PORCINE) 5,000 UNIT/ML 1 ML VIAL SUBCUT SCH ×3 (05:16→21:23)
[2019-12-29] MEDS: LEVOTHYROXINE SODIUM 0.05 MG TABLET PO SCH (05:16)
[2019-12-29 05:29] LABS: HEMATOCRIT 24.1 % (36.0-47.0); MEAN CORPUSCULAR HEMOGLOBIN 23.1 pg (27.0-33.4); MEAN CORPUSCULAR HGB CONC 32.4 g/dL (32.0-36.0); MEAN CORPUSCULAR VOLUME 71 fl (80-97); PLATELET COUNT 522 10^3/uL (150-450); RED BLOOD COUNT 3.37 10^6/uL (3.72-5.28); RED CELL DISTRIBUTION WIDTH 20.7 % (11.5-14.0); WHITE BLOOD COUNT 10.8 10^3/uL (4.0-10.5)
[2019-12-29 05:45] LABS: ALBUMIN 2.3 g/dL (3.5-5.0); ALKALINE PHOSPHATASE 91 U/L (38-126); ASPARTATE AMINO TRANSFERASE 14 U/L (14-36); BLOOD UREA NITROGEN 10 mg/dL (7-20); CALCIUM 8.6 mg/dL (8.4-10.2); GLUCOSE 125 mg/dL (75-110); POTASSIUM 4.1 mmol/L (3.6-5.0)
[2019-12-29 05:47] LABS: HEMOGLOBIN 7.8 g/dL (12.0-15.5)
[2019-12-29 05:50] LABS: CARBON DIOXIDE 29 mmol/L (22-30); CHLORIDE 106 mmol/L (98-107)
[2019-12-29 05:59] LABS: BILIRUBIN,TOTAL < 0.1 mg/dL (0.2-1.3)
[2019-12-29 06:01] LABS: ABSOLUTE LYMPHOCYTES# (MANUAL) 2.3 10^3/uL (0.5-4.7); ABSOLUTE MONOCYTES # (MANUAL) 0.5 10^3/uL (0.1-1.4); BASOPHILS % (MANUAL) 0 % (0-2); EOSINOPHILS % (MANUAL) 1 % (0-6); LYMPHOCYTES % (MANUAL) 21 % (13-45); METAMYELOCYTES % (MANUAL) 1 % (0-1); MONOCYTES % (MANUAL) 5 % (3-13); SEGMENTED NEUTROPHILS % (MAN) 72 % (42-78); TOTAL CELLS COUNTED 100
[2019-12-29 06:03] LABS: ANISOCYTOSIS 2+; OVALOCYTES 1+; PLATELET COMMENT ADEQUATE; POIKILOCYTOSIS 2+; TARGET CELLS SLIGHT; TEAR DROP CELLS 1+; TOXIC GRANULATION 1+
[2019-12-29 06:04] LABS: ANION GAP 3 (5-19)
[2019-12-29] MEDS: INSULIN LISPRO 100 UNIT/ML 3 ML VIAL SUBCUT SCH ×7 (08:26→21:24)
[2019-12-29] MEDS: PREDNISONE 5 MG TABLET PO SCH (08:27)
--- NOTE | 2019-12-29 10:15 | PDOC PROGRESS REPORT ---
Subjective Progress Note for:: 12/29/19 Subjective:: Patient is doing well. Denies any pain nausea vomiting. Has no complaints at this time. States that her sore throat has resolved. Reason For Visit: HHNK Physical Exam Vital Signs: Temp Pulse Resp BP Pulse Ox 97.9 F 92 21 H 141/69 H 96 12/29/19 03:02 12/29/19 07:00 12/29/19 03:02 12/29/19 03:02 12/29/19 03:02 Intake & Output 12/28/19 12/29/19 12/30/19 06:59 06:59 06:59 Intake Total 1677 2160 Output Total 1350 Balance 1677 810 Weight 75.2 kg 75.6 kg General appearance: PRESENT: no acute distress, cooperative Neck exam: ABSENT: JVD Respiratory exam: PRESENT: unlabored. ABSENT: accessory muscle use, retraction Cardiovascular exam: ABSENT: tachycardia GI/Abdominal exam: PRESENT: soft. ABSENT: rigid, tenderness Neurological exam: PRESENT: alert, awake Results Laboratory Results: 12/29/19 05:12 12/29/19 05:12 12/29/19 12/29/19 05:12 05:12 WBC 10.8 H RBC 3.37 L Hgb 7.8 L Hct 24.1 L MCV 71 L MCH 23.1 L MCHC 32.4 RDW 20.7 H Plt Count 522 H Seg Neutrophils % Not Reportable Sodium 137.7 Potassium 4.1 Chloride 106 Carbon Dioxide 29 Anion Gap 3 L BUN 10 Creatinine 1.11 Est GFR ( Amer) > 60 Glucose 125 H Calcium 8.6 Magnesium 1.8 Total Bilirubin < 0.1 L AST 14 Alkaline Phosphatase 91 Total Protein 5.0 L Albumin 2.3 L Impressions: Chest X-Ray 12/24/19 00:00 IMPRESSION: Scoliosis. No acute cardiopulmonary finding. Abdomen/Pelvis CT 12/25/19 00:00 IMPRESSION: No acute findings. Guidance Fluoroscopy 12/27/19 00:00 IMPRESSION: SUCCESSFUL PLACEMENT OF A 5 FR DUAL LUMEN 37 CM PICC IN THE RIGHT B ASILIC VEIN. Interventional Vascular Procedure 12/27/19 00:00 IMPRESSION: SUCCESSFUL PLACEMENT OF A 5 FR DUAL LUMEN 37 CM PICC IN THE RIGHT BASILIC VEIN. PICC Line Insertion 12/27/19 00:00 IMPRESSION: SUCCESSFUL PLACEMENT OF A 5 FR DUAL LUMEN 37 CM PICC IN THE RIGHT BASILIC VEIN. Assessment and Plan - Diagnosis (1) Bacteremia due to group B Streptococcus Is this a current diagnosis for this admission?: Yes Plan: Likely source of bacteremia seems to be UTI though urinalysis was only weakly positive, urine culture grew group B strep. Chest x-ray negative. Thorough skin survey by me shows no cellulitis or wounds. CT abdomen pelvis to evaluate abd pain: unremarkable [unfortunately patient unable to drink contrast and stated severe allergy to contrast]. Last febrile on 12/26/2019. Blood cultures negative since 12/26/2019. Blood cultures show susceptibility to ceftriaxone. tte unremarkable Patient will require 14 days of IV therapy to be completed on 01/09/2020. (2) Insulin dependent diabetes mellitus Is this a current diagnosis for this admission?: No Plan: Hemoglobin A1c of 12 showing poorly controlled. Home dose of Lantus 21 units at bedtime. Regimen has been adjusted to Lantus 15 units twice daily and lispro 6 units with meals. (3) Sore throat Is this a current diagnosis for this admission?: Yes Plan: Resolved. Throat culture showed no evidence of strep throat. Cepacol lozenges as needed. (4) Severe sepsis with acute organ dysfunction due to group B Streptococcus Is this a current diagnosis for this admission?: Yes Plan: Resolved at this time (5) Iron deficiency anemia Qualifiers: Iron deficiency anemia type: unspecified iron deficiency Qualified Code(s): D50.9 - Iron deficiency anemia, unspecified Is this a current diagnosis for this admission?: No Plan: Iron studies reviewed. Ferrous sulfate supplementation. Hemoglobin stabilizing (6) Renal transplant recipient Is this a current diagnosis for this admission?: No Plan: Continue prednisone and azathioprine (7) RICHARD (acute kidney injury) Is this a current diagnosis for this admission?: Yes Plan: Resolved (8) HHNC (hyperglycemic hyperosmolar nonketotic coma) Is this a current diagnosis for this admission?: Yes Plan: Resolved - Time Time Spent with patient: Less than 15 minutes
[2019-12-29] MEDS: CEFTRIAXONE 2 GM/D5W RTU 2 GM/50 ML RTUPB IV SCH ×2 (10:44→21:23)
[2019-12-29] MEDS: ONDANSETRON HCL INJ/PF 4 MG/2 ML SDV IV PRN (10:45)
[2019-12-29] MEDS: METHADONE HCL 10 MG TABLET PO SCH (10:51)
[2019-12-29] MEDS: PANTOPRAZOLE SODIUM 40 MG TABLET.DR PO SCH ×2 (10:51→17:21)
[2019-12-29] MEDS: NORMAL SALINE 10 ML SDV (SCHEDULED) IV SCH ×2 (10:51→21:26)
[2019-12-29] MEDS: CYCLOBENZAPRINE HCL 10 MG TABLET PO SCH ×2 (10:51→17:21)
[2019-12-29] MEDS: DULOXETINE HCL 30 MG CAPSULE.DR PO SCH ×2 (10:51→21:23)
[2019-12-29] MEDS: FERROUS SULFATE LIQUID 300 MG/5 ML UDC PO SCH (10:52)
[2019-12-29] MEDS: INSULIN GLARGINE,HUM.REC.ANLOG 1,000 UNIT/10 ML VIAL SUBCUT SCH ×2 (10:53→17:22)
[2019-12-29] MEDS: ATORVASTATIN CALCIUM 20 MG TABLET PO SCH (21:23)
[2019-12-29] MEDS: CLONAZEPAM 1 MG TABLET PO SCH (21:23)
[2019-12-30] MEDS: ONDANSETRON HCL INJ/PF 4 MG/2 ML SDV IV PRN (03:02)
[2019-12-30] MEDS: HEPARIN SOD (PORCINE) 5,000 UNIT/ML 1 ML VIAL SUBCUT SCH (06:59)
[2019-12-30] MEDS: LEVOTHYROXINE SODIUM 0.05 MG TABLET PO SCH (07:00)
[2019-12-30] MEDS: INSULIN LISPRO 100 UNIT/ML 3 ML VIAL SUBCUT SCH ×4 (08:32→11:54)
[2019-12-30] MEDS: PREDNISONE 5 MG TABLET PO SCH (08:32)
[2019-12-30 08:57] VITALS: BP 147/91
[2019-12-30] MEDS: CEFTRIAXONE 2 GM/D5W RTU 2 GM/50 ML RTUPB IV SCH (10:43)
[2019-12-30] MEDS: FERROUS SULFATE LIQUID 300 MG/5 ML UDC PO SCH (10:43)
[2019-12-30] MEDS: INSULIN GLARGINE,HUM.REC.ANLOG 1,000 UNIT/10 ML VIAL SUBCUT SCH (10:44)
[2019-12-30] MEDS: CYCLOBENZAPRINE HCL 10 MG TABLET PO SCH (10:44)
[2019-12-30] MEDS: DULOXETINE HCL 30 MG CAPSULE.DR PO SCH (10:44)
[2019-12-30] MEDS: METHADONE HCL 10 MG TABLET PO SCH (10:44)
[2019-12-30] MEDS: PANTOPRAZOLE SODIUM 40 MG TABLET.DR PO SCH (10:44)
[2019-12-30] MEDS: NORMAL SALINE 10 ML SDV (SCHEDULED) IV SCH (10:46)
--- NOTE | 2019-12-30 12:16 | PDOC TRANSFER SUMMARY ---
Impression - Admit/DC Date/PCP Admission Date/Primary Care Provider: 12/24/19 12:21 YAZAN JOHNSON MD Discharge Date: 12/30/19 - Discharge Diagnosis (1) Bacteremia due to group B Streptococcus Is this a current diagnosis for this admission?: Yes (2) Insulin dependent diabetes mellitus Is this a current diagnosis for this admission?: Yes (3) Sore throat Is this a current diagnosis for this admission?: Yes (4) Severe sepsis with acute organ dysfunction due to group B Streptococcus Is this a current diagnosis for this admission?: Yes (5) Iron deficiency anemia Is this a current diagnosis for this admission?: Yes (6) Renal transplant recipient Is this a current diagnosis for this admission?: No (7) RICHARD (acute kidney injury) Is this a current diagnosis for this admission?: Yes (8) HHNC (hyperglycemic hyperosmolar nonketotic coma) Is this a current diagnosis for this admission?: Yes (9) Chronic abdominal pain Is this a current diagnosis for this admission?: Yes - Additional Information Resuscitation Status: Full Code Referrals: YAZAN JOHNSON MD [Primary Care Provider] - Follow up as needed Prescriptions: Ceftriaxone 2 gm/D5w RTU [Rocephin RTU 2 gm/D5w 50 ml Premix Bag] 2 gm IV DAILY 10 Days rtupb Home Medications: Atorvastatin Calcium [Lipitor 20 mg Tablet] 20 mg PO QHS 12/24/19 Azathioprine [Imuran 50 mg Tablet] 25 mg PO SA@0800 12/24/19 Clonazepam [Klonopin 1 mg Tablet] 1 mg PO QHS 12/24/19 Cyclobenzaprine HCl [Flexeril 10 mg Tablet] 10 mg PO BID 12/24/19 Duloxetine HCl [Cymbalta] 60 mg PO BID 12/24/19 Levothyroxine Sodium [Synthroid] 125 mcg PO DAILY 12/24/19 Methadone HCl 5 mg PO DAILY 12/24/19 Pantoprazole Sodium [Protonix] 40 mg PO BID 12/24/19 Prednisone [Deltasone 5 mg Tablet] 5 mg PO QAM 12/24/19 Benzocaine/Menthol [Chloraseptic Sore Throat Lozenge] 1 each BUCCAL Q4HP PRN lozenge 12/30/19 Ceftriaxone 2 gm/D5w RTU [Rocephin RTU 2 gm/D5w 50 ml Premix Bag] 2 gm IV DAILY 10 Days rtupb 12/30/19 Ferrous Sulfate [Ferrous Sulfate Liquid 300 mg/5 ml Udcup] 300 mg PO DAILY udc 12/30/19 Insulin Glargine,Hum.rec.anlog [Lantus Insulin 100 Unit/1 ml 10 ml] 15 unit SUBCUT BID unit 12/30/19 Insulin Lispro [Humalog Insulin (Lispro) 100 unit/mL] 6 unit SUBCUT AC unit 12/30/19 History of Present Illiness History of Present Illness: KE SMITH is a 59 year old female with insulin-dependent diabetes mellitus, renal transplant in 2009, chronic abdominal pain, depression, who presents to the hospital with complaints of feeling unwell. She describes this as abdominal pain nausea and vomiting for the past 2 days that is been progressively worsening. States that she typically feels this way when her blood sugar is getting high. States that on Monday, she was having some sore throat and chills and called the rescue squad who told her that she did not need to go the hospital at that time. Denied any shortness of breath but did say that she felt feverish at that time. Denied any significant cough or rhinorrhea at the time. Today has symptoms that are getting worse and she was nauseous and vomiting throughout yesterday. Subsequently presented in the hospital and was noted to be hyperglycemic over 600 and referred to hospitalist service for admission. Patient denies any noncompliance with her insulin. Patient also denies any trips outside the [facility] and states that she has been at home for the past 3 weeks because she did not want to go out and catch any infection. She lives with her mother who does all the shopping. Denies any sick exposure. States her mom has been in good health and has not shown any evidence of respiratory symptoms. Hospital Course Hospital Course: Patient initially presented and was admitted for evaluation of abdominal pain nausea, vomiting and malaise. She was noted to be febrile at the time but lacked any respiratory symptoms. Lab work revealed elevated blood sugar readings in the 600s and she was subsequently diagnosed with HHNC. She was started on an insulin drip and aggressive IV fluids for management of her HHN K. Her blood sugars improved. Her hemoglobin A1c was over 12. Patient became septic on admission with severe sepsis with metabolic encephalopathy and RICHARD. Blood cultures were obtained on admission and patient was subsequently started on empiric antibiotics with broad-spectrum vancomycin and Zosyn. All blood culture bottles resulted in less than 24 hours with group B streptococcus bacteremia which likely suggestive of high bacterial burden. Likely source of her bacteremia was urinary tract infection as her urinalysis also grew group B streptococcus. 2 days after antibiotics was initiated, repeat blood cultures were obtained and have been negative. Patient was later transitioned to ceftriaxone following susceptibility report. Patient is to continue on ceftriaxone 2 g daily until 01/09/2020 to complete 14-day course of IV antibiotics which is the recommended treatment for severe infections with group B strep bacteremia. Patient has been doing very well and has remained afebrile for the past several days now. Patient's encephalopathy has also resolved and patient has been awake eating and eating adequately for the past several days as well. Patient's insulin regimen was adjusted from Lantus 21 units nightly to Lantus 15 units twice daily with lispro 6 units with meals added for better blood sugar control. Patient is sore throat has resolved at this time. Throat culture was negative for strep. Patient also continuing iron supplements for iron deficiency anemia. Continue her azathioprine and prednisone for immunosuppression following renal transplant. Patient is also to continue her methadone daily which is being prescribed by Dr. Melonie Zuniga [design painter] for chronic pain. Patient is safe and stable for discharge at this time and should follow-up with her primary care provider. Physical Exam Vital Signs: Temp Pulse Resp BP Pulse Ox 98.2 F 100 16 147/91 H 97 12/30/19 07:46 12/30/19 07:46 12/30/19 07:46 12/30/19 07:46 12/30/19 07:46 Intake & Output 12/29/19 12/30/19 12/31/19 06:59 06:59 06:59 Intake Total 2160 1180 Output Total 1350 1800 Balance 810 -620 Weight 75.6 kg 72.9 kg General appearance: PRESENT: no acute distress, cooperative Neck exam: ABSENT: JVD Respiratory exam: PRESENT: clear to auscultation grayson Cardiovascular exam: PRESENT: +S1, +S2 GI/Abdominal exam: PRESENT: normal bowel sounds, soft, tenderness - minimal. ABSENT: distended, firm, guarding, rebound, rigid Neurological exam: PRESENT: alert, awake, oriented to person, oriented to place, oriented to time Psychiatric exam: ABSENT: agitated, anxious Results Laboratory Results: WBC 10.8 10^3/uL (4.0-10.5) H 12/29/19 05:12 RBC 3.37 10^6/uL (3.72-5.28) L 12/29/19 05:12 Hgb 7.8 g/dL (12.0-15.5) L 12/29/19 05:12 Hct 24.1 % (36.0-47.0) L 12/29/19 05:12 MCV 71 fl (80-97) L 12/29/19 05:12 MCH 23.1 pg (27.0-33.4) L 12/29/19 05:12 MCHC 32.4 g/dL (32.0-36.0) 12/29/19 05:12 RDW 20.7 % (11.5-14.0) H 12/29/19 05:12 Plt Count 522 10^3/uL (150-450) H 12/29/19 05:12 Lymph % (Auto) Not Reportable 12/29/19 05:12 Colbert % (Auto) Not Reportable 12/29/19 05:12 Eos % (Auto) Not Reportable 12/29/19 05:12 Baso % (Auto) Not Reportable 12/29/19 05:12 Reticulocyte # 0.070 10^6/uL (0.028-0.122) 12/25/19 04:50 Absolute Neuts (auto) Not Reportable 12/29/19 05:12 Absolute Lymphs (auto) Not Reportable 12/29/19 05:12 Absolute Monos (auto) Not Reportable 12/29/19 05:12 Absolute Eos (auto) Not Reportable 12/29/19 05:12 Absolute Basos (auto) Not Reportable 12/29/19 05:12 Total Counted 100 12/29/19 05:12 Seg Neutrophils % Not Reportable 12/29/19 05:12 Seg Neuts % (Manual) 72 % (42-78) 12/29/19 05:12 Band Neutrophils % 1 % (3-5) L 12/28/19 07:20 Lymphocytes % (Manual) 21 % (13-45) 12/29/19 05:12 Monocytes % (Manual) 5 % (3-13) 12/29/19 05:12 Eosinophils % (Manual) 1 % (0-6) 12/29/19 05:12 Basophils % (Manual) 0 % (0-2) 12/29/19 05:12 Metamyelocytes % 1 % (0-1) 12/29/19 05:12 Abs Neuts (Manual) 7.9 10^3/uL (1.7-8.2) 12/29/19 05:12 Abs Lymphs (Manual) 2.3 10^3/uL (0.5-4.7) 12/29/19 05:12 Abs Monocytes (Manual) 0.5 10^3/uL (0.1-1.4) 12/29/19 05:12 Absolute Eos (Manual) 0.1 10^3/uL (0.0-0.6) 12/29/19 05:12 Abs Basophils (Manual) 0.0 10^3/uL (0.0-0.2) 12/29/19 05:12 Toxic Granulation 1+ 12/29/19 05:12 Platelet Comment ADEQUATE 12/29/19 05:12 Polychromasia SLIGHT 12/28/19 07:20 Hypochromasia SLIGHT 12/27/19 05:07 Poikilocytosis 2+ 12/29/19 05:12 Anisocytosis 2+ 12/29/19 05:12 Microcytosis 1+ 12/28/19 07:20 Target Cells SLIGHT 12/29/19 05:12 Tear Drop Cells 1+ 12/29/19 05:12 Ovalocytes 1+ 12/29/19 05:12 Schistocytes SLIGHT 12/25/19 04:50 Retic Count (auto) 1.80 % (0.66-2.85) 12/25/19 04:50 VBG pH 7.27 (7.30-7.42) L 12/24/19 10:30 VBG pCO2 62.8 mmHg (35-63) 12/24/19 10:30 VBG HCO3 28.1 mmol/L (20-32) 12/24/19 10:30 VBG Base Excess -0.1 mmol/L 12/24/19 10:30 Sodium 137.7 mmol/L (137-145) 12/29/19 05:12 Potassium 4.1 mmol/L (3.6-5.0) 12/29/19 05:12 Chloride 106 mmol/L (98-107) 12/29/19 05:12 Carbon Dioxide 29 mmol/L (22-30) 12/29/19 05:12 Anion Gap 3 (5-19) L 12/29/19 05:12 BUN 10 mg/dL (7-20) 12/29/19 05:12 Creatinine 1.11 mg/dL (0.52-1.25) 12/29/19 05:12 Est GFR ( Amer) > 60 (>60) 12/29/19 05:12 Est GFR (MDRD) Non-Af 50 (>60) L 12/29/19 05:12 Glucose 125 mg/dL (75-110) H 12/29/19 05:12 POC Glucose 157 mg/dL (70-110) H 12/30/19 11:47 Hemoglobin A1c % 12.7 % (4.7-6.0) H 12/24/19 15:54 Lactic Acid 1.5 mmol/L (0.7-2.1) 12/24/19 20:31 Calcium 8.6 mg/dL (8.4-10.2) 12/29/19 05:12 Magnesium 1.8 mg/dL (1.6-2.3) 12/29/19 05:12 Iron 16.1 ug/dL (37-170) L 12/25/19 04:50 TIBC 229 ug/dL (250-450) L 12/25/19 04:50 % Saturation 7 % 12/25/19 04:50 Ferritin 40.20 ng/mL (11.1-264.0) 12/25/19 04:50 Total Bilirubin < 0.1 mg/dL (0.2-1.3) L 12/29/19 05:12 Direct Bilirubin Not Reportable 12/29/19 05:12 Neonat Total Bilirubin Not Reportable 12/29/19 05:12 Neonat Direct Bilirubin Not Reportable 12/29/19 05:12 Neonat Indirect Bili Not Reportable 12/29/19 05:12 AST 14 U/L (14-36) 12/29/19 05:12 ALT 11 U/L (<35) 12/29/19 05:12 Alkaline Phosphatase 91 U/L (38-126) 12/29/19 05:12 Total Protein 5.0 g/dL (6.3-8.2) L 12/29/19 05:12 Albumin 2.3 g/dL (3.5-5.0) L 12/29/19 05:12 Lipase < 10.0 U/L (23-300) L 12/24/19 10:30 Vitamin B12 > 1000.0 pg/mL (239-931) H 12/25/19 04:50 Folate 17.20 ng/mL (>2.76) 12/25/19 04:50 Beta-Hydroxybutyrate 24 mg/dL (.) H 12/24/19 10:30 Urine Color YELLOW 12/24/19 10:30 Urine Appearance SLIGHTLY-CLOUDY 12/24/19 10:30 Urine pH 5.0 (5.0-9.0) 12/24/19 10:30 Ur Specific [place] 1.015 12/24/19 10:30 Urine Protein NEGATIVE mg/dL (NEGATIVE) 12/24/19 10:30 Urine Glucose (UA) >=500 mg/dL (NEGATIVE) H 12/24/19 10:30 Urine Ketones TRACE mg/dL (NEGATIVE) H 12/24/19 10:30 Urine Blood SMALL (NEGATIVE) H 12/24/19 10:30 Urine Nitrite (Reflex) NEGATIVE (NEGATIVE) 12/24/19 10:30 Urine Bilirubin NEGATIVE (NEGATIVE) 12/24/19 10:30 Urine Urobilinogen NEGATIVE mg/dL (<2.0) 12/24/19 10:30 Leukocyte Esterase Rfl TRACE (NEGATIVE) H 12/24/19 10:30 Urine RBC (Auto) 0 /HPF 12/24/19 10:30 Urine Bacteria (Auto) 2+ /HPF 12/24/19 10:30 Urine WBC (Reflex) 45 /HPF 12/24/19 10:30 Urine Mucus (Auto) RARE /LPF 12/24/19 10:30 Urine Ascorbic Acid NEGATIVE (NEGATIVE) 12/24/19 10:30 Time Trough Drawn 0937 12/26/19 09:37 Vancomycin Trough 5.9 ug/mL (5.0-20.0) 12/26/19 09:37 Influenza A (Rapid) NEGATIVE (NEGATIVE) 12/24/19 16:00 Influenza B (Rapid) NEGATIVE (NEGATIVE) 12/24/19 16:00 Impressions: Chest X-Ray 12/24/19 00:00 IMPRESSION: Scoliosis. No acute cardiopulmonary finding. Abdomen/Pelvis CT 12/25/19 00:00 IMPRESSION: No acute findings. Guidance Fluoroscopy 12/27/19 00:00 IMPRESSION: SUCCESSFUL PLACEMENT OF A 5 FR DUAL LUMEN 37 CM PICC IN THE RIGHT BASILIC VEIN. Interventional Vascular Procedure 12/27/19 00:00 IMPRESSION: SUCCESSFUL PLACEMENT OF A 5 FR DUAL LUMEN 37 CM PICC IN THE RIGHT BASILIC VEIN. PICC Line Insertion 12/27/19 00:00 IMPRESSION: SUCCESSFUL PLACEMENT OF A 5 FR DUAL LUMEN 37 CM PICC IN THE RIGHT BASILIC VEIN. Plan Time Spent: Greater than 30 Minutes Stroke Is this a Stroke Patient?: No Acute Heart Failure - Is this a Heart Failure Patient?: No
== END 2019-12-30 13:45 | DRG 637 ==
LOC: ER 10:01 → EH 12:21 → 3W 17:49
PROVIDERS: ADMIT Internal Medicine; ATTEND Internal Medicine
PROC: 02HV33Z Insertion of Infusion Device into Superior Vena Cava, Percutaneous Approach (ICD-10-PCS; principal; 2019-12-27)
PROC: B518ZZA Fluoroscopy of Superior Vena Cava, Guidance (ICD-10-PCS; 2019-12-27)
PROC: B548ZZA Ultrasonography of Superior Vena Cava, Guidance (ICD-10-PCS; 2019-12-27)
DX: E11.00 Type 2 diabetes mellitus with hyperosmolarity without nonketotic hyperglycemic-hyperosmolar coma (NKHHC) (principal); A40.1 Sepsis due to streptococcus, group B; R65.20 Severe sepsis without septic shock; G93.41 Metabolic encephalopathy; N17.9 Acute kidney failure, unspecified; Z94.0 Kidney transplant status; D50.9 Iron deficiency anemia, unspecified; F32.9 Major depressive disorder, single episode, unspecified; E78.5 Hyperlipidemia, unspecified; I10 Essential (primary) hypertension; E78.00 Pure hypercholesterolemia, unspecified; E86.0 Dehydration; Z79.4 Long term (current) use of insulin; Z79.899 Other long term (current) drug therapy; Z79.890 Hormone replacement therapy; Z79.82 Long term (current) use of aspirin; Z88.6 Allergy status to analgesic agent; Z88.3 Allergy status to other anti-infective agents; Z91.041 Radiographic dye allergy status; Z88.0 Allergy status to penicillin; Z91.013 Allergy to seafood; Z88.2 Allergy status to sulfonamides; Z88.8 Allergy status to other drugs, medicaments and biological substances; Z91.048 Other nonmedicinal substance allergy status; Z86.73 Personal history of transient ischemic attack (TIA), and cerebral infarction without residual deficits
CPT/HCPCS: 36415; 36573; 71046; 74176; 76937; 77001; 80048; 80053; 80202; 81001; 82010; 82565; 82607; 82728; 82746; 82803; 82962; 83036; 83540; 83550; 83605; 83690; 83735; 85025; 85045; 87040; 87070; 87077; 87086; 87088; 87150; 87186; 87804; 93306; 96360; 99285; C9113; J0696; J1642; J1644; J1815; J2405; J2543; J3370; J3475; J3490; J7030; J7050; J7060; J7500; J7512

== ENCOUNTER 2020-06-18 22:10 | Emergency (ER) | payer MEDICARE, OTHER, MEDICAID ==
--- NOTE | 2020-06-18 22:26 | ER Document Report ---
ED General - General Stated Complaint: RIGHT SHOULDER PAIN Time Seen by Provider: 06/18/20 22:21 Primary Care Provider: WALDEMAR SANCHEZ MD [NO LOCAL MD] - Follow up as needed MIGUEL A LEVY JR, DO [ACTIVE PROVISIONAL STAFF] - Follow up as needed PATRICIA GARRISON DO [ACTIVE STAFF] - Follow up as needed Mode of Arrival: Ambulatory Information source: Patient Notes: 06/18/20 22:25 - ED Nursing Note by [facility] Num: [id number] : 1960 Patient Age: [age] Y/O FEMALE WITH AN EXTENSIVE PMH, PRESENTS FROM [facility] VIA EMS. PER EMS, PT TRIPPED OVER A BED ON FLOOR, FALLING AND STRIKING HER RT SHOULDER. PT REPORTS THAT SHE HEARD A "POP". PT RATING PAIN 4/5. ROM LIMITED TO PAIN. My Notes 59-year-old female arrives with chief complaint of right shoulder pain. Patient has a history of Sirs DVT hypokalemia hyperkalemia obesity neuropathy IDDM kidney transplant HH NC hyperglycemic hyperosmotic nonketotic and was seen last for abdominal pain and UTI. This was by Honey. Patient advises that while she was at [facility] her roommate falls out of bed a lot and therefore they put the mattress on the floor. The patient reports she tripped over the mattress and went down on the hard floor impacting her right shoulder and hearing a click when this happened. X-ray of right humerus reveals a humeral neck fracture. Patient was taken to x-ray room when she arrived. It is not severely displaced or open. Patient received 2 mg of Dilaudid by EMS prior to arrival. TRAVEL OUTSIDE OF THE [place] IN LAST 30 DAYS: No - HPI Onset: Just prior to arrival Onset/Duration: Sudden Quality of pain: Achy Severity: Moderate Pain Level: 3 Associated symptoms: None Exacerbated by: Movement Similar symptoms previously: Yes - Fractured bilateral forearms when she was a teenager at [employer] Recently seen / treated by doctor: Yes - Related Data Allergies/Adverse Reactions: amoxicillin Allergy (Verified 06/18/20 22:22) aspirin Allergy (Verified 06/18/20 22:22) clindamycin Allergy (Verified 06/18/20 22:22) divalproex sodium [From Depakote] Allergy (Verified 06/18/20 22:22) gabapentin [From Neurontin] Allergy (Verified 06/18/20 22:22) ibuprofen Allergy (Verified 06/18/20 22:22) iodine Allergy (Verified 06/18/20 22:22) iron Allergy (Verified 06/18/20 22:22) metoclopramide [From Reglan] Allergy (Verified 06/18/20 22:22) morphine Allergy (Verified 06/18/20 22:22) nalbuphine [From Nubain] Allergy (Verified 06/18/20 22:22) NSAIDS (Non-Steroidal Anti-Inflamma Allergy (Verified 06/18/20 22:22) orange juice Allergy (Verified 06/18/20 22:22) paricalcitol [From Zemplar] Allergy (Verified 06/18/20 22:22) pregabalin [From Lyrica] Allergy (Verified 06/18/20 22:22) Sulfa (Sulfonamide Antibiotics) Allergy (Verified 06/18/20 22:22) topiramate [From Topamax] Allergy (Verified 06/18/20 22:22) IVP dye Allergy (Uncoded 12/04/17 18:37) seafood Allergy (Uncoded 12/04/17 18:37) Past Medical History - General Information source: Patient, Emergency Med Personnel - Social History Smoking Status: Never Smoker Cigarette use (# per day): No Chew tobacco use (# tins/day): No Smoking Education Provided: No Frequency of alcohol use: None Drug Abuse: None Lives with: [facility] Family History: Reviewed & Not Pertinent, Hypertension Patient has suicidal ideation: No Patient has homicidal ideation: No - Past Medical History Cardiac Medical History: Reports: Hx Hypercholesterolemia, Hx Hypertension Neurological Medical History: Reports: Hx Cerebrovascular Accident. Denies: Hx Seizures Endocrine Medical History: Reports: Hx Diabetes Mellitus Type 1, Hx Diabetes Mellitus Type 2 Renal/ Medical History: Denies: Hx Peritoneal Dialysis Psychiatric Medical History: Reports: Hx Depression Past Surgical History: Reports: Hx Appendectomy, Hx Section - x1, Hx Cholecystectomy, Hx Hysterectomy, Hx Kidney (Renal Surgery) - Kidney transplant, Hx Tubal Ligation - Immunizations Hx Diphtheria, Pertussis, Tetanus Vaccination: Yes Review of Systems - Review of Systems Constitutional: No symptoms reported. denies: Fever, Malaise, Weakness, Weight gain, Weight loss, Recent illness EENT: No symptoms reported. denies: See HPI, Eye discharge Cardiovascular: No symptoms reported. denies: Chest pain, Palpitations Respiratory: No symptoms reported. denies: Hemoptysis, Short of breath, Sputum, Stridor Gastrointestinal: No symptoms reported. denies: Vomiting, Constipation Genitourinary: No symptoms reported. denies: Frequency, Flank pain, Hematuria, Pain Female Genitourinary: No symptoms reported. denies: Heavy/abnormal periods, Irregular period Musculoskeletal: See HPI, Joint pain - right shoulder pain, Joint swelling Skin: No symptoms reported Hematologic/Lymphatic: No symptoms reported Neurological/Psychological: No symptoms reported. denies: Confusion, Dementia, Depression, Anxiety, Hallucinations, Homicidal ideation, Gait changes, Paralysis, Seizure Physical Exam - Vital signs Vitals: Temp Pulse Resp BP Pulse Ox 98.8 F 112 H 16 178/126 H 96 06/18/20 22:32 06/18/20 22:32 06/18/20 22:32 06/18/20 22:32 06/18/20 22:32 Course - Vital Signs Vital signs: Temp Pulse Resp BP Pulse Ox 98.8 F 112 H 16 178/126 H 96 06/18/20 22:32 06/18/20 22:32 06/18/20 22:32 06/18/20 22:32 06/18/20 22:32 Critical Care Note - Critical Care Note Comments: I discussed this case with Dr. Willy Levy at 2300 and he advises following up with him in his office. Call his office tomorrow for appointment. Discharge - Discharge Clinical Impression: Closed fracture of right proximal humerus Qualifiers: Encounter type: initial encounter Fracture morphology: unspecified fracture morphology Qualified Code(s): S42.201A - Unspecified fracture of upper end of right humerus, initial encounter for closed fracture Condition: Good Disposition: HOME, SELF-CARE Additional Instructions: Avoid using the right arm shoulder; maintain secure shoulder immobilizer at all times until seen by Dr. Willy Levy ; Dr. Levy was called from the ER and he advises following up with him in his office. Call his office tomorrow for appointment / orthopedics. Referrals: WALDEMAR SANCHEZ MD [NO LOCAL MD] - Follow up as needed PATRICIA GARRISON DO [ACTIVE STAFF] - Follow up as needed MIGUEL A LEVY JR, DO [ACTIVE PROVISIONAL STAFF] - Follow up as needed
--- NOTE | 2020-06-18 23:07 | RADIOLOGY REPORT (SQ) ---
EXAM DESCRIPTION: XR CHEST 1 VIEW COMPLETED DATE/TME: 06/18/2020 22:29 CLINICAL HISTORY: 59 years, Female, fall with r shoulder pain COMPARISON: 12/24/2019 chest NUMBER OF VIEWS: 1 TECHNIQUE: Portable chest LIMITATIONS: None. FINDINGS: Heart size is stable. Osteopenia. Severe dextroscoliosis of the thoracic spine. No pneumothorax. Lungs are clear IMPRESSION: No acute cardiopulmonary process copyright 2010 [id number]- All Rights Reserved
--- NOTE | 2020-06-18 23:09 | RADIOLOGY REPORT (SQ) ---
EXAM DESCRIPTION: XR SHOULDER 2 OR MORE VIEWS COMPLETED DATE/TME: 06/18/2020 22:28 CLINICAL HISTORY: 59 years, Female, fall with r shoulder pain COMPARISON: None. FINDINGS: 2 x-ray views of the right shoulder. No acute fracture or dislocation identified on this study. Stable configuration of the right humeral head on this single provided frontal image. No acute abnormality of the clavicle or visualized right ribs. IMPRESSION: 1. No glenohumeral dislocation. No fracture identified. Positioning on frontal view is suboptimal. Internal and external rotation views would provide additional characterization to exclude fracture. copyright 2010 [employer]- All Rights Reserved
[2020-06-18] MEDS ORDERED: ACETAMINOPHEN 325 MG TABLET PO ONE (23:13)
[2020-06-18 23:29] VITALS: BP 184/98
== END 2020-06-18 23:55 | disposition home or self-care (01) ==
LOC: ER 22:10
DX: S42.201A Unspecified fracture of upper end of right humerus, initial encounter for closed fracture (principal); M25.511 Pain in right shoulder; W01.0XXA Fall on same level from slipping, tripping and stumbling without subsequent striking against object, initial encounter; E78.00 Pure hypercholesterolemia, unspecified; I10 Essential (primary) hypertension; E11.9 Type 2 diabetes mellitus without complications; Z86.74 Personal history of sudden cardiac arrest; Z88.0 Allergy status to penicillin; Z88.6 Allergy status to analgesic agent; Z88.2 Allergy status to sulfonamides; Z94.0 Kidney transplant status
CPT/HCPCS: 99284; 71045; 73030; A9270